=== PATIENT | female | born 1980 | race Caucasian/White ===

== ENCOUNTER 2016-03-14 00:10 | Inpatient (IN) | payer MEDICARE, MEDICAID ==
--- NOTE | 2016-03-14 01:55 | XR ---
EXAMINATION TYPE: XR cervical spine comp DATE OF EXAM: 03/14/2016 1:26 AM COMPARISON: NONE HISTORY: Neck pain TECHNIQUE: 5 views FINDINGS: The cervical vertebra have normal spacing and alignment. Posterior elements are intact. [place] antoaxial facet joint is normal. There are no cervical ribs. IMPRESSION: Normal cervical spine.
--- NOTE | 2016-03-14 01:56 | XR ---
EXAMINATION TYPE: XR ankle complete RT DATE OF EXAM: 03/14/2016 1:26 AM COMPARISON: NONE HISTORY: Ankle pain TECHNIQUE: 3 views FINDINGS: I see no fracture nor dislocation. Ankle mortise is anatomic. Joint spaces are normal. Ther e is an Achilles calcaneal spur. IMPRESSION: No fracture. Mild calcaneal spurring.
--- NOTE | 2016-03-14 01:57 | XR ---
EXAMINATION TYPE: XR wrist complete LT DATE OF EXAM: 03/14/2016 1:26 AM COMPARISON: NONE HISTORY: Pain TECHNIQUE: 4 views FINDINGS: I see no fracture nor dislocation. Carpal bones are intact. Joint spaces are normal. IMPRESSION: Normal left wrist.
--- NOTE | 2016-03-14 01:57 | XR ---
EXAMINATION TYPE: XR elbow complete LT DATE OF EXAM: 03/14/2016 1:26 AM COMPARISON: NONE HISTORY: Pain TECHNIQUE: 3 views FINDINGS: I see no fracture nor dislocation. Joint spaces are normal. There is no sign of elbow joint effusion. IMPRESSION: Negative left elbow exam.
--- NOTE | 2016-03-14 02:09 | ED ---
Lower Extremity Injury HPI - General Chief Complaint: Extremity Injury, Lower Stated Complaint: fall-Ankle/Elbow Injury Time Seen by Provider: 03/14/16 00:50 Source: patient, RN notes reviewed Mode of arrival: wheelchair Limitations: no limitations - History of Present Illness Initial Comments: 35-year-old female presents emergency Department chief complaint fall. Patient states she stepped off a ledge twisting her right ankle, falling forward injuring her left elbow, left wrist and she states she has some neck discomfort. Patient denies any head injury no LOC. Patient denies any back pain. Patient states that there is some swelling noted to the right ankle. And abrasion noted to her left elbow. She states her tetanus is up-to-date. Patient states that she is also feeling depressed, suicidal and occasionally homicidal. - Related Data Home Medications Medication Instructions Recorded Confirmed Baclofen [Baclofen] 10 mg PO Q8H PRN 09/26/15 03/14/16 Diazepam [Diazepam] 5 mg PO TID 09/26/15 03/14/16 Previous Rx's Medication Instructions Recorded Ibuprofen [Motrin] 600 mg PO Q8HR PRN #30 tab 03/14/16 Allergies Allergy/AdvReac Type Severity Reaction Status Date / Time duloxetine HCl Allergy Rash/Hives Verified 09/26/15 13:47 [From Cymbalta] Iodine and Iodide Containing Allergy Rash/Hives Verified 09/26/15 13:47 Produc paroxetine HCl [From Paxil] Allergy Rash/Hives Verified 09/26/15 13:47 Penicillins Allergy Rash/Hives Verified 09/26/15 13:47 Review of Systems ROS Statement: Those systems with pertinent positive or pertinent negative responses have been documented in the HPI. ROS Other: All systems not noted in ROS Statement are negative. Past Medical History Past Medical History: No Reported History Additional Past Medical History / Comment(s): Chronic back pain, insomnia, kidney stones History of Any Multi-Drug Resistant Organisms: None Reported Past Surgical History: Cholecystectomy, Tubal Ligation Past Anesthesia/Blood Transfusion Reactions: No Reported Reaction Past Psychological History: Anxiety, Bipolar, Depression, Panic Disorder, Schizophrenia Smoking Status: Current every day smoker Past Alcohol Use History: None Reported Additional Past Alcohol Use History / Comment(s): Patient is a smoker of one half pack per day since she was 13 years of age. Past Drug Use History: None Reported - Past Family History Father Additional Family Medical History / Comment(s): Patient does not know any history on her father. Mother Family Medical History: Liver Disease Additional Family Medical History / Comment(s): Mother at age 46 from liver cirrhosis due to alcoholism General Exam Limitations: no limitations General appearance: alert, in no apparent distress Neck exam: Present: normal inspection, tenderness (Mild right paraspinal tenderness), full ROM. Absent: meningismus, lymphadenopathy Respiratory exam: Present: normal lung sounds bilaterally. Absent: respiratory distress, wheezes, rales, rhonchi, stridor Cardiovascular Exam: Present: regular rate, normal rhythm, normal heart sounds. Absent: systolic murmur, diastolic murmur, rubs, gallop, clicks Extremities exam: Present: other (Left wrist there is some tenderness palpation , no obvious deformity no swelling or range of motion, left elbow tenderness with palpation, pain with rotation supination full extension noted neurovascular intact right ankle tenderness palpation of the lateral malleolus there is mild swelling no foot tenderness neurovascular intact) Back exam: Present: full ROM. Absent: tenderness Neurological exam: Present: alert, oriented X3, CN II-XII intact, reflexes normal. Absent: motor sensory deficit Psychiatric exam: Present: depressed Course Vital Signs 03/14/16 00:43 Temperature 97.5 F L Pulse Rate 81 Respiratory 18 Rate Blood Pressure 120/72 O2 Sat by Pulse 99 Oximetry Medical Decision Making - Medical Decision Making 35-year-old female presented for fall. There is no acute fractures. Patient did have a psychiatric evaluation in which patient will be discharged per psychiatrist recommendation. Patient states that she does have a safe living environment and she will be discharged. - Lab Data Lab Results 03/14/16 Range/Units 01:43 Urine Opiates Screen Not Detected (NotDetected) Ur Oxycodone Screen Not Detected (NotDetected) Urine Methadone Screen Not Detected (NotDetected) Ur Propoxyphene Screen Not Detected (NotDetected) Ur Barbiturates Screen Detected H (NotDetected) U Tricyclic Antidepress Not Detected (NotDetected) Ur Phencyclidine Scrn Not Detected (NotDetected) Ur Amphetamines Screen Not Detected (NotDetected) U Methamphetamines Scrn Not Detected (NotDetected) U Benzodiazepines Scrn Detected H (NotDetected) Urine Cocaine Screen Not Detected (NotDetected) U Marijuana (THC) Screen Not Detected (NotDetected) Disposition Clinical Impression: Fall, Right ankle sprain, Injury of left lower arm, Depression Disposition: HOME SELF-CARE Condition: Stable Instructions: Ankle Sprain (ED) Additional Instructions: Please return to the Emergency Department if symptoms worsen or any other concerns. Prescriptions: Ibuprofen [Motrin] 600 mg PO Q8HR PRN #30 tab PRN Reason: Pain Time of Disposition: 04:07
[2016-03-14 05:20] VITALS: RESP 16
[2016-03-14] MEDS ORDERED: IBUPROFEN 800 MG TAB PO STA (05:37)
[2016-03-14] MEDS ORDERED: MAGNESIUM HYDROXIDE 2,400 MG/10 ML CUP PO PRN (06:21)
[2016-03-14] MEDS ORDERED: ZIPRASIDONE 20 MG VIAL IM PRN (06:21)
[2016-03-14] MEDS ORDERED: MAG HYDROX/AL HYDROX/SIMETH 30 ML CUP PO PRN (06:21)
[2016-03-14] MEDS: NICOTINE 21MG/24HR PATCH TRANSDERM SCH (09:17)
[2016-03-14 09:53] LABS: Basophils # (A) 0.1 k/uL (0-0.2); Basophils % (A) 0 %; CH 31.8; CHCM 33.9; Eosinophils # (A) 0.1 k/uL (0-0.7); Eosinophils % (A) 1 %; HCT 42.4 % (34.0-46.0); HDW 2.24; HGB 13.9 gm/dL (11.4-16.0); Luc # (Auto) 0.18; Luc % (Auto) 2; Lymphocytes # (A) 2.7 k/uL (1.0-4.8); Lymphocytes % (A) 22 %; MCH 30.9 pg (25.0-35.0); MCHC 32.8 g/dL (31.0-37.0); MCV 94.2 fL (80.0-100.0); Mean Platelet Volume 6.3; Monocytes # (A) 0.7 k/uL (0-1.0); Monocytes % (A) 6 %; Neutrophils # (A) 8.4 k/uL (1.3-7.7); Neutrophils % (A) 69 %; RDW 12.8 % (11.5-15.5); WBC 12.2 k/uL (3.8-10.6); WBC (Perox) 12.99
[2016-03-14 10:13] LABS: ALT 27 U/L (9-52); AST 13 U/L (14-36); Alkaline Phosphatase 73 U/L (38-126); Anion Gap 13 mmol/L; Blood Urea Nitrogen 10 mg/dL (7-17); Calcium 9.3 mg/dL (8.4-10.2); Carbon Dioxide 24 mmol/L (22-30); Chloride 107 mmol/L (98-107); Glucose 91 mg/dL (74-99); Non-African American GFR(MDRD) >60 (>60 ml/min/1.73 sqM); Potassium 4.2 mmol/L (3.5-5.1); Sodium 144 mmol/L (137-145); Total Bilirubin 0.6 mg/dL (0.2-1.3); Total Protein 6.9 g/dL (6.3-8.2)
[2016-03-14] MEDS: ACETAMINOPHEN TAB 325 MG TAB PO PRN ×2 (11:03→18:19)
[2016-03-14] MEDS: BACLOFEN 10 MG TAB PO PRN ×2 (11:34→21:52)
[2016-03-14] MEDS: DOXYCYCLINE 50 MG CAP PO SCH ×2 (15:32→20:35)
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
[2016-03-14 17:23] LABS: Amorphous Sediment,Urine Rare /hpf; Appearance,Urine Clear (Clear); Bilirubin,Urine Negative (Negative); Glucose,Urine (UA) Negative (Negative); Ketones,Urine Negative (Negative); Leukocyte Esterase,Urine Trace (Negative); Mucus,Urine Many /hpf; Nitrite,Urine Negative (Negative); PH, Urine 6.5 (5.0-8.0); Particle Count 1526; Protein,Urine Negative (Negative); RBC,Urine <1 /hpf (0-5); Specific Gravity,Urine 1.001 (1.001-1.035); Squamous Epithelial Cell,Urine 2 /hpf (0-4); UA Billing (MACRO vs. MICRO) MICRO; Urobilinogen,Urine <2.0 mg/dL (<2.0); WBC,Urine 4 /hpf (0-5)
--- NOTE | 2016-03-14 19:39 | P.CONS ---
History of Present Illness - Reason for Consult Consult date: 03/14/16 enrique Requesting physician: Dru Perrin - Chief Complaint Major depression - History of Present Illness This is a 35-year-old pleasant lady with no local PCP. She follows with Dr. Silvina Mcqueen. She has underlying history off chronic back pain and insomnia kidney stones admitted the emergency room secondary to depression and suicidal ideation, patient initially presented emergency room secondary to a sprain on the ankle right side after she rolled her ankle and fell on an even H. This occurred without any loss of consciousness. She developed a right ankle sprain for which she can ambulate, left elbow contusion with some minor abrasions, nothing for sutures, left wrist sprain she was in emergency room with negative x -rays on this areas. The ecchymosis up-to-date. While in emergency room she also mentioned about her increasing depression and suicidal ideation especially during the [place] holidays. Her grandmother had in 2011 and is a grandmother who took care of her primary. The boyfriend has brought the patient emergency room with concerns about her depression. Patient denies any suicidal thoughts or homicidal thoughts. She also is depressed mainly that she found out that her 2 children that she gave up for adoption did not receive any [employer] presents for the past 2 years Review of Systems Constitutional: Reports as per HPI, Reports chronic pain, Denies anorexia, Denies chills, Denies chronic headaches, Denies daytime sleepiness, Denies fatigue, Denies fever, Denies lethargy, Denies malaise, Denies night sweats, Denies poor appetite, Denies sweats, Denies weakness, Denies weight gain, Denies weight loss Ears, nose, mouth and throat: Reports as per HPI, Denies ant. neck pain, Denies bleeding gums, Denies dental pain, Denies dysphagia, Denies epistaxis, Denies headache, Denies hoarseness, Denies mouth pain, Denies nasal congestion, Denies nasal discharge, Denies neck fullness/pressure, Denies neck lump, Denies nose pain, Denies odynophagia, Denies post-nasal drip, Denies sinus pain, Denies sinus pressure, Denies swelling in mouth, Denies swelling in throat, Denies sore throat, Denies vertigo, Denies voice changes Cardiovascular: Reports as per HPI, Denies chest pain, Denies claudication, Denies decreased exercise tolerance, Denies dyspnea on exertion, Denies edema, Denies high blood pressure, Denies irregular heart beat, Denies leg edema, Denies lightheadedness, Denies orthopnea, Denies palpitations, Denies paroxysmal nocturnal dyspnea, Denies phlebitis, Denies rapid heart beat, Denies shortness of breath, Denies syncope Respiratory: Reports as per HPI, Denies congestion, Denies cough, Denies cough with sputum, Denies dyspnea, Denies excessive sputum, Denies hemoptysis, Denies home oxygen, Denies pain, Denies pain on inspiration, Denies pleurisy, Denies respiratory infections, Denies sleep apnea, Denies snoring, Denies wheezing Gastrointestinal: Reports as per HPI, Denies abdominal pain, Denies belching, Denies bloating, Denies BRBPR, Denies change in bowel habits, Denies coffee ground emesis, Denies constipation, Denies diarrhea, Denies dyspepsia, Denies early satiety, Denies excessive gas, Denies heartburn, Denies hematemesis, Denies hematochezia, Denies indigestion, Denies jaundice, Denies lactose intolerance, Denies loss of appetite, Denies melena, Denies nausea, Denies vomiting Genitourinary: Reports as per HPI, Denies abnormal vaginal bleeding, Denies decreased libido, Denies difficulty conceiving, Denies difficulty voiding, Denies dysmenorrhea, Denies dyspareunia, Denies dysuria, Denies flank pain, Denies genital sores, Denies hematuria, Denies hot flashes, Denies incomplete emptying, Denies kidney stones, Denies menorrhagia, Denies mixed incontinence, Denies nocturia, Denies pelvic pain, Denies post void dribbling, Denies , Denies prolapse symptoms, Denies stress incontinence, Denies urge incontinence , Denies urgency, Denies urinary frequency, Denies vaginal discharge, Denies vaginal dryness, Denies vaginal itching, Denies vaginal odor Menstruation: Reports as per HPI, Denies amenorrhea, Denies amenorrhea on BC, Denies currently menstrual, Denies cycle < 21 days, Denies cycle > 35 days, Denies cycle variable, Denies menses 1-7 days, Denies menses 8 or > days, Denies menses variable, Denies period heavy, Denies period light, Denies period normal, Denies period spotting, Denies post hysterectomy, Denies postmenopausal , Denies premenarcheal Musculoskeletal: Reports as per HPI, Denies arm numbness/tingling, Denies atrophy, Denies fractures, Denies frequent falls, Denies gait dysfunction, Denies hot joints, Denies leg numbness/tingling, Denies limitation of motion, Denies loss of height, Denies low back pain, Denies morning stiffness, Denies muscle cramps, Denies muscle weakness, Denies myalgias, Denies neck pain, Denies neck stiffness, Denies prior amputations, Denies redness of joints, Denies shooting arm pain, Denies shooting leg pain Integumentary: Reports as per HPI, Denies acne, Denies boils, Denies brittle nails, Denies change in hair/nails, Denies color changes, Denies darkening of skin, Denies depigmentation, Denies dryness, Denies foot/leg ulcers, Denies growths, Denies hirsutism, Denies lesions, Denies onychomycosis, Denies pruritus , Denies rash, Denies sores, Denies striae, Denies unusual bruising, Denies wounds Neurological: Reports as per HPI, Denies aphasia, Denies ataxia, Denies balance difficulties, Denies burning pain, Denies change in mentation, Denies change in smell/taste, Denies change in speech, Denies confusion, Denies convulsions, Denies double vision, Denies gait dysfunction, Denies head injury, Denies headaches, Denies hearing difficulties, Denies lack of coordination, Denies loss of vision, Denies memory loss, Denies migraines, Denies motor disturbance, Denies numbness, Denies paralysis, Denies paresthesias, Denies seizures, Denies sensory deficit, Denies spasticity, Denies syncope, Denies tic, Denies tingling , Denies transient paralysis, Denies tremors, Denies vertigo, Denies weakness, Denies visual changes Psychiatric: Reports as per HPI, Reports change in sleep habits, Reports depression, Reports insomnia, Reports sadness/tearfulness Endocrine: Reports as per HPI, Denies cold intolerance, Denies deepening of the voice, Denies excessive sweating, Denies excessive thirst, Denies fatigue, Denies flushing, Denies heat intolerance, Denies high blood sugars, Denies increase in ring/shoe/hat size, Denies low blood sugars, Denies nocturia, Denies palpitations, Denies polydipsia, Denies polyphagia, Denies polyuria, Denies proptosis, Denies recent glucocorticoid use, Denies thyroid mass, Denies weight change Hematologic/Lymphatic: Reports as per HPI, Denies easy bleeding, Denies easy bruising, Denies lymphadenopathy, Denies lymphedema, Denies thrombophilia Allergic/Immunologic: Reports as per HPI, Denies allergic rhinitis, Denies anaphylaxis, Denies angioedema, Denies gluten intolerance, Denies persistent infections, Denies seasonal allergies, Denies urticaria, Denies wheezing Past Medical History Past Medical History: No Reported History, Renal Disease (Kidney stones) Additional Past Medical History / Comment(s): Chronic back pain, insomnia, kidney stones History of Any Multi-Drug Resistant Organisms: None Reported Past Surgical History: Cholecystectomy, Tubal Ligation Past Anesthesia/Blood Transfusion Reactions: No Reported Reaction Past Psychological History: Anxiety, Bipolar, Depression, Panic Disorder, Schizophrenia Smoking Status: Current every day smoker Past Alcohol Use History: None Reported Additional Past Alcohol Use History / Comment(s): Patient is a smoker of one half pack per day since she was 13 years of age. Past Drug Use History: None Reported - Past Family History Father Family Medical History: Hyperlipidemia Additional Family Medical History / Comment(s): CAD with triple bypass surgery Mother Family Medical History: Liver Disease Additional Family Medical History / Comment(s): Mother at age 46 from liver cirrhosis due to alcoholism Brother(s) History Unknown: Yes (Half-brother healthy) Medications and Allergies Home Medications Medication Instructions Recorded Confirmed Type Baclofen [Baclofen] 10 mg PO Q8H PRN 09/26/15 03/14/16 History Diazepam [Diazepam] 5 mg PO TID 09/26/15 03/14/16 History HYDROcodone/APAP 10-325MG [[place] 1 tab PO TID PRN 03/14/16 03/14/16 History 10-325] Prochlorperazine [Compazine] 10 mg PO DAILY PRN 03/14/16 03/14/16 History Allergies Allergy/AdvReac Type Severity Reaction Status Date / Time duloxetine HCl Allergy Rash/Hives Verified 09/26/15 13:47 [From Cymbalta] Iodine and Iodide Containing Allergy Rash/Hives Verified 09/26/15 13:47 Produc paroxetine HCl [From Paxil] Allergy Rash/Hives Verified 09/26/15 13:47 Penicillins Allergy Rash/Hives Verified 09/26/15 13:47 Physical Exam Vitals: Vital Signs Temp Pulse Resp BP 03/14/16 07:05 98.2 F 86 16 118/68 Intake and Output 03/14/16 03/14/16 03/14/16 06:59 14:59 22:59 Other: Weight 113.852 kg Patient Weight 03/15/16 06:59 Weight 113.852 kg - Constitutional General appearance: no average body habitus, cooperative, no disheveled, no mild distress, morbidly obese, no acute distress, no obese, no severe distress, no thin - EENT Eyes: no abnormal pupil, anicteric sclerae, no disc margins sharp, no edentulous , EOMI, PERRLA, no fundus normal, no photophobia, dentition normal, no poor dentition, no ptosis, no scleral icterus, normal appearance ENT: no hard of hearing, hearing grossly normal, NA/AT, normal oropharynx, no other, no pharyngeal erythema, no thrush, no tonsillar exudates, no tonsillar swelling - Neck Neck: no lymphadenopathy, normal ROM, no other, no rigidity, no stridor, no thyromegaly - Respiratory Respiratory: bilateral: CTA, negative: diminished, dullness, rales, rhonchi, wheezing, prolonged expiration, prolonged inspiration, other - Cardiovascular Rhythm: regular Heart sounds: normal: S1, S2 Abnormal Heart Sounds: no systolic murmur, no diastolic murmur, no rub, no S3 Gallop, no S4 Gallop, no click, no other - Gastrointestinal General gastrointestinal: normal bowel sounds, soft - Integumentary Integumentary: normal - Neurologic Neurologic: CNII-XII intact - Musculoskeletal Musculoskeletal: gait normal, strength equal bilaterally - Psychiatric Psychiatric: A&O x's 3, appropriate affect, intact judgment & insight Results CBC & Chem 7: 03/14/16 09:13 03/14/16 09:13 Labs: Abnormal Lab Results - Last 24 Hours (Table) 03/14/16 03/14/16 03/14/16 Range/Units 09:13 09:13 16:15 WBC 12.2 H (3.8-10.6) k/uL Neutrophils # 8.4 H (1.3-7.7) k/uL AST 13 L (14-36) U/L Ur Leukocyte Esterase Trace H (Negative) Amorphous Sediment Rare H (None) /hpf Urine Mucus Many H (None) /hpf Laboratory Results WBC 12.2 k/uL (3.8-10.6) H 03/14/16 09:13 RBC 4.50 m/uL (3.80-5.40) 03/14/16 09:13 Hgb 13.9 gm/dL (11.4-16.0) 03/14/16 09:13 Hct 42.4 % (34.0-46.0) 03/14/16 09:13 MCV 94.2 fL (80.0-100.0) 03/14/16 09:13 MCH 30.9 pg (25.0-35.0) 03/14/16 09:13 MCHC 32.8 g/dL (31.0-37.0) 03/14/16 09:13 RDW 12.8 % (11.5-15.5) 03/14/16 09:13 Plt Count 351 k/uL (150-450) 03/14/16 09:13 Neutrophils % 69 % 03/14/16 09:13 Lymphocytes % 22 % 03/14/16 09:13 Monocytes % 6 % 03/14/16 09:13 Eosinophils % 1 % 03/14/16 09:13 Basophils % 0 % 03/14/16 09:13 Neutrophils # 8.4 k/uL (1.3-7.7) H 03/14/16 09:13 Lymphocytes # 2.7 k/uL (1.0-4.8) 03/14/16 09:13 Monocytes # 0.7 k/uL (0-1.0) 03/14/16 09:13 Eosinophils # 0.1 k/uL (0-0.7) 03/14/16 09:13 Basophils # 0.1 k/uL (0-0.2) 03/14/16 09:13 Sodium 144 mmol/L (137-145) 03/14/16 09:13 Potassium 4.2 mmol/L (3.5-5.1) 03/14/16 09:13 Chloride 107 mmol/L (98-107) 03/14/16 09:13 Carbon Dioxide 24 mmol/L (22-30) 03/14/16 09:13 Anion Gap 13 mmol/L 03/14/16 09:13 BUN 10 mg/dL (7-17) 03/14/16 09:13 Creatinine 0.75 mg/dL (0.52-1.04) 03/14/16 09:13 Est GFR (MDRD) Af Amer >60 (>60 ml/min/1.73 sqM) 03/14/16 09:13 Est GFR (MDRD) Non-Af >60 (>60 ml/min/1.73 sqM) 03/14/16 09:13 Glucose 91 mg/dL (74-99) 03/14/16 09:13 Calcium 9.3 mg/dL (8.4-10.2) 03/14/16 09:13 Total Bilirubin 0.6 mg/dL (0.2-1.3) 03/14/16 09:13 AST 13 U/L (14-36) L 03/14/16 09:13 ALT 27 U/L (9-52) 03/14/16 09:13 Alkaline Phosphatase 73 U/L (38-126) 03/14/16 09:13 Total Protein 6.9 g/dL (6.3-8.2) 03/14/16 09:13 Albumin 3.8 g/dL (3.5-5.0) 03/14/16 09:13 TSH 2.130 mIU/L (0.465-4.680) 03/14/16 09:13 Urine Color Colorless 03/14/16 16:15 Urine Appearance Clear (Clear) 03/14/16 16:15 Urine pH 6.5 (5.0-8.0) 03/14/16 16:15 Ur Specific [place] 1.001 (1.001-1.035) 03/14/16 16:15 Urine Protein Negative (Negative) 03/14/16 16:15 Urine Glucose (UA) Negative (Negative) 03/14/16 16:15 Urine Ketones Negative (Negative) 03/14/16 16:15 Urine Blood Negative (Negative) 03/14/16 16:15 Urine Nitrate Negative (Negative) 03/14/16 16:15 Urine Bilirubin Negative (Negative) 03/14/16 16:15 Urine Urobilinogen <2.0 mg/dL (<2.0) 03/14/16 16:15 Ur Leukocyte Esterase Trace (Negative) H 03/14/16 16:15 Urine RBC <1 /hpf (0-5) 03/14/16 16:15 Urine WBC 4 /hpf (0-5) 03/14/16 16:15 Ur Squamous Epith Cells 2 /hpf (0-4) 03/14/16 16:15 Amorphous Sediment Rare /hpf (None) H 03/14/16 16:15 Urine Mucus Many /hpf (None) H 03/14/16 16:15 Urine HCG, Qual Not Detected (Not Detectd) 03/14/16 16:15 Urine Opiates Screen Not Detected (NotDetected) 03/14/16 01:43 Ur Oxycodone Screen Not Detected (NotDetected) 03/14/16 01:43 Urine Methadone Screen Not Detected (NotDetected) 03/14/16 01:43 Ur Propoxyphene Screen Not Detected (NotDetected) 03/14/16 01:43 Ur Barbiturates Screen Detected (NotDetected) H 03/14/16 01:43 U Tricyclic Antidepress Not Detected (NotDetected) 03/14/16 01:43 Ur Phencyclidine Scrn Not Detected (NotDetected) 03/14/16 01:43 Ur Amphetamines Screen Not Detected (NotDetected) 03/14/16 01:43 U Methamphetamines Scrn Not Detected (NotDetected) 03/14/16 01:43 U Benzodiazepines Scrn Detected (NotDetected) H 03/14/16 01:43 Urine Cocaine Screen Not Detected (NotDetected) 03/14/16 01:43 U Marijuana (THC) Screen Not Detected (NotDetected) 03/14/16 01:43 Assessment and Plan Plan: 1. Major depression recurrent, triggered by the holidays and loss of the grandmother 4 years ago. Patient currently is in the mental health unit being followed closely by the mental health team including psychiatry. Medications will be adjusted by the mental health services 2. Right ankle strain grade 1-2, no treatment necessary except for anti- inflammatory and icing. X-ray negative 3. Contusion left elbow also from a recent fall on a ledge at a patio, patient had minor superficial abrasions no swelling of the elbow x-rays negative tetanus vaccine up-to-date 4. Left wrist sprain with no residual pain at this time maintain close monitory 5. Chronic low back pain with recent negative ablation L3-L4 January 2016 follows with [place] [facility] 6. Chronic low back pain urinalysis is requested as she did have a history off kidney stones the past if no hematuria microscopic noted, most likely back pains related to musculoskeletal patient has baclofen, Valium, and [place] 3 times per day from neuro 7. Tobacco dependency for which she smoked half a pack per day since age [address] Perrin in allowing us to participate patent care for patient. Please not hesitate to notify us should there be any medical concerns on this pleasant patient Time with Patient: Greater than 30
[2016-03-14] MEDS: SYMBICORT 160-4.5 MCG INHALER INHALATION SCH (20:32)
[2016-03-15] MEDS: DOXYCYCLINE 50 MG CAP PO SCH ×2 (08:23→20:09)
[2016-03-15] MEDS: ACETAMINOPHEN TAB 325 MG TAB PO PRN ×2 (08:24→16:26)
[2016-03-15] MEDS: NICOTINE 21MG/24HR PATCH TRANSDERM SCH (08:24)
[2016-03-15] MEDS: SYMBICORT 160-4.5 MCG INHALER INHALATION SCH ×2 (08:50→19:59)
[2016-03-15 10:40] VITALS: BMI 41.8
[2016-03-15] MEDS: BACLOFEN 10 MG TAB PO PRN ×2 (10:58→20:51)
[2016-03-15] MEDS: DIAZEPAM 5 MG TAB PO PRN ×2 (12:43→20:10)
[2016-03-15] MEDS: IBUPROFEN 600 MG TAB PO PRN ×2 (12:43→20:10)
--- NOTE | 2016-03-15 13:15 | P.PN ---
Subjective Psychiatric progress notes. Patient reports that she had been doing quite well on the unit, attending all the milieu based treatment programs and compliant with her medications. Since patient did not appear to be depressed no antidepressant was started as she had not been on any medication on the outside. In addition she has not been compliant with any treatment follow-up. Patient states that she learned that her boyfriend has gone back to his and hence she can go back to the apartment for the time being. All the same she states she is in love with him. Mental status. Somewhat heavy built female who is dressed in her own clothes with moderate degree of grooming and without any psychomotor disturbance. Patient comes readily for the evaluation and maintains good eye contact and communicates relevantly and coherently. Her speech was productive and speech and thought process did not show any abnormal traits. Patient denied feeling depressed or anxious and has been regular with her habits in sleeping and eating as well as self-care. Seems to have fair degree of insight and judgment. Continue current treatment plans. Objective - Vital Signs Vital signs: Vital Signs Temp 98.1 F 03/15/16 06:48 Pulse 100 03/15/16 06:48 Resp 16 03/15/16 06:48 BP 122/58 03/15/16 06:48 Pulse Ox 97 03/14/16 05:18 Intake & Output 03/14/16 03/15/16 03/15/16 18:59 06:59 18:59 Weight 113.852 kg 113.852 kg - Labs CBC & Chem 7: 03/14/16 09:13 03/14/16 09:13 Labs: Abnormal Lab Results - Last 24 Hours (Table) 03/14/16 Range/Units 16:15 Ur Leukocyte Esterase Trace H (Negative) Amorphous Sediment Rare H (None) /hpf Urine Mucus Many H (None) /hpf
[2016-03-16] MEDS: IBUPROFEN 600 MG TAB PO PRN ×2 (06:26→21:02)
[2016-03-16] MEDS: DIAZEPAM 5 MG TAB PO PRN ×3 (06:26→20:30)
[2016-03-16] MEDS: DOXYCYCLINE 50 MG CAP PO SCH ×2 (08:43→20:30)
[2016-03-16] MEDS: NICOTINE 21MG/24HR PATCH TRANSDERM SCH (08:44)
[2016-03-16] MEDS: ACETAMINOPHEN TAB 325 MG TAB PO PRN (12:09)
[2016-03-16] MEDS: SYMBICORT 160-4.5 MCG INHALER INHALATION SCH ×2 (12:38→18:58)
--- NOTE | 2016-03-16 14:48 | P.PN ---
Subjective Psychiatric progress notes. Patient indicated that she has been doing quite well though she is not on any antidepressant medication at present. According to her she had slept well and has been participating in all treatment activities. She indicates that she learned that her boyfriend is living with his mother now. Appears to be ambivalent about her relationship with him. Otherwise no significant problem brought. Mental status. Heavy built female in her own clothes, quite pleasant and appropriate readily coming for the evaluation and maintaining good eye contact and appropriately responding to questions. No psychomotor disturbance noticeable. Speech and thought process normal. Denied feeling any depression or thoughts of harm to self or others. No evidence of any psychotic symptoms. May have some improved insight and judgment. Continue current treatment plans. Objective - Vital Signs Vital signs: Vital Signs Temp 97.6 F 03/16/16 06:49 Pulse 104 H 03/16/16 06:49 Resp 16 03/16/16 06:49 BP 144/82 03/16/16 06:49 Pulse Ox 97 03/14/16 05:18 Intake & Output 03/15/16 03/16/16 03/16/16 18:59 06:59 18:59 Weight 113.852 kg - Labs CBC & Chem 7: 03/14/16 09:13 03/14/16 09:13
[2016-03-16] MEDS: BACLOFEN 10 MG TAB PO PRN (15:54)
[2016-03-17] MEDS: DOXYCYCLINE 50 MG CAP PO SCH ×2 (08:38→21:06)
[2016-03-17] MEDS: NICOTINE 21MG/24HR PATCH TRANSDERM SCH (08:40)
[2016-03-17] MEDS: DIAZEPAM 5 MG TAB PO PRN ×2 (08:41→15:57)
[2016-03-17] MEDS: IBUPROFEN 600 MG TAB PO PRN ×2 (08:41→15:57)
[2016-03-17] MEDS: BACLOFEN 10 MG TAB PO PRN ×2 (09:34→17:33)
[2016-03-17] MEDS: SYMBICORT 160-4.5 MCG INHALER INHALATION SCH ×2 (12:34→19:11)
--- NOTE | 2016-03-17 15:02 | P.PN ---
Subjective Psychiatric progress notes. Patient has been doing quite well on the unit without any evidence of her being depressed or having any psychotic symptoms. Has been participating in treatment activities and did not require any antidepressant medication or any sleep aid. Patient states that she had a family session yesterday and her boyfriend came, apparently she had called him. It's very difficult to evaluate her relationship with this gentleman as she is quite evasive and not telling the truth nature of their relationship. Though she states that she does not want have anything to do with him she enumerates numerous details about what he has been doing since she was hospitalized. Mental status. Patient is an obese built female dressed in her own clothes and without any psychomotor disturbance. Comes readily for the evaluation and speak spontaneously maintaining good eye contact. Speech and thought process without any abnormal traits. Patient denies feeling depressed or anxious. Eating and sleeping habits good. No psychotic features. Possibly limited in insight and judgment. Continue current treatment plans and possible discharge tomorrow. Objective - Vital Signs Vital signs: Vital Signs Temp 98.4 F 03/17/16 06:43 Pulse 99 03/17/16 06:43 Resp 16 03/17/16 06:43 BP 109/53 03/17/16 06:43 Pulse Ox 97 03/14/16 05:18 Intake & Output 03/16/16 03/17/16 03/17/16 18:59 06:59 18:59 Weight 114.7 kg - Labs CBC & Chem 7: 03/14/16 09:13 03/14/16 09:13
[2016-03-17] MEDS: ACETAMINOPHEN TAB 325 MG TAB PO PRN (21:07)
[2016-03-18] MEDS: NICOTINE 21MG/24HR PATCH TRANSDERM SCH (08:20)
[2016-03-18] MEDS: DOXYCYCLINE 50 MG CAP PO SCH ×2 (08:20→20:54)
[2016-03-18] MEDS: ACETAMINOPHEN TAB 325 MG TAB PO PRN ×3 (08:22→20:55)
[2016-03-18] MEDS: DIAZEPAM 5 MG TAB PO PRN ×3 (08:22→20:55)
[2016-03-18] MEDS: BACLOFEN 10 MG TAB PO PRN ×3 (08:48→20:55)
[2016-03-18] MEDS: SYMBICORT 160-4.5 MCG INHALER INHALATION SCH ×2 (09:00→21:58)
[2016-03-18] MEDS: IBUPROFEN 600 MG TAB PO PRN (11:23)
--- NOTE | 2016-03-18 14:09 | P.PN ---
Subjective Psychiatric progress notes. Patient has been doing quite well for the past couple of days without the necessity of need for antidepressant medication. Patient is waiting be discharged tomorrow after contacting [facility] for appointment. She indicates that she would be going back to her own presidents and does not anticipate her boyfriend is likely to come there as he had told her that he needs to have some time off from every involvement with others. Mental status. He'll be billed to female dressed in her own clothes comes readily for the evaluation without any psychomotor disturbance. Maintains good eye contact and response to questions relevantly and coherently. No evidence of any depressive trends. No delusions or hallucinations. Affect appropriate. Seems to have fair degree of insight and judgment. Continue current treatment plans. Objective - Vital Signs Vital signs: Vital Signs Temp 98.2 F 03/18/16 07:08 Pulse 96 03/18/16 07:08 Resp 16 03/18/16 07:08 BP 101/51 03/18/16 07:08 Pulse Ox 97 03/14/16 05:18 Intake & Output 03/17/16 03/18/16 03/18/16 18:59 06:59 18:59 Weight 114.7 kg - Labs CBC & Chem 7: 03/14/16 09:13 03/14/16 09:13
[2016-03-19 06:45] VITALS: BP 101/54; PULSE 90; TEMP 98.1
[2016-03-19] MEDS: SYMBICORT 160-4.5 MCG INHALER INHALATION SCH (08:32)
[2016-03-19] MEDS: ACETAMINOPHEN TAB 325 MG TAB PO PRN ×2 (08:43→12:20)
[2016-03-19] MEDS: NICOTINE 21MG/24HR PATCH TRANSDERM SCH (08:44)
[2016-03-19] MEDS: DOXYCYCLINE 50 MG CAP PO SCH (08:44)
[2016-03-19] MEDS: DIAZEPAM 5 MG TAB PO PRN (08:44)
[2016-03-19] MEDS: BACLOFEN 10 MG TAB PO PRN (08:44)
--- NOTE | 2016-03-19 15:13 | P.DS ---
Providers Date of admission: 03/14/16 06:19 Attending physician: Dru Perrin MD Psychiatric discharge summary. Identification data and reason for hospitalization. Patient is a 35-year-old white single female was admitted to mental health unit following her evaluation in the emergency room, where she actually came for evaluation of her twisted ankle which according to her happened when she slipped and fell on the porch. After x-rays and other evaluations done and patient was to be discharged she made a statement of "feeling depressed and having occasional suicidal/homicidal thoughts ". Her boyfriend made a petition alleging that she had threatened to harm herself and others. Patient was admitted on a petition and clinical certificate, subsequently signed voluntary. History of present illness and mental status at the time of admission please refer to the dictated admission notes. Admitting diagnoses. [place] I. Depressive disorder. [place] II. Dependent personality. [place] III. Chronic pain. Nicotine dependency. History of hydrocephalus. [place] IV. Moderate [place] V. 35. Course during hospitalization. Patient was on a regular diet and was on close observation for any unpredictable behavior or suicidal ideation, but none was observed during her and there stay on the unit. She was on Tylenol, Maalox, and milk of magnesia on a when necessary basis. In the ER x-rays of the wrist and elbow cervical spine and ankle were taken none of which showed any abnormality. On the other hand EKG showed normal sinus rhythm. Possible lateral infarct age undetermined. Possible inferior infarct age undetermined. Medical consultation provided by Dr. Coats which indicated continuation left elbow right ankle sprain, left wrist sprain chronic low back pain. And tobacco dependency. In the emergency department she was started on Vibramycin 100 mg twice daily. Her regular medications were baclofen 10 mg 3 times a day when necessary Symbicort inhaler twice a day, and Valium 5 mg 3 times a day when necessary. She was on Habitrol 21 mg transdermal every 24 hours. On a when necessary basis for agitation and any psychotic behavior there was an order for Geodon IM 20 mg twice a day when necessary. Since patient has not shown any evidence of being depressed no antidepressants were initiated. Patient was seen on a daily basis in supportive and reality oriented discussions and patient acknowledged that the stressors at home particularly with her daughter made her think about grandmother who had and she wished she was with her. However denied having any suicidal thoughts at the time of admission or subsequently. All the same patient indicated that she could benefit from some counseling sessions. bridge gang worker tried to get an appointment with [facility], where she did not meet criteria and hence alternate follow-up plans were arranged and patient was scheduled for discharge. X Mental status at the time of discharge. Patient is an obese built white female was dressed in her own clothes and quite pleasant and appropriate without any evidence of psychomotor disturbance or any depressive demeanor. She readily comes for evaluation and appropriately response to inquiries though on many occasions I felt that she was being evasive and not truthfully reporting particularly with a reference to her relationship with her boyfriend, and the problems she has with her daughter. On the other hand her speech and thought process was normal and did not reveal having any depressive trends or suicidality. Affect was appropriate patient was euthymic and pleasant. Adequate self-care and possibly improved insight and judgment. Discharge diagnoses. [place] I depressive disorder. Adjustment disorder with depression. Tobacco use disorder. [place] II. Dependent personality [place] III. Chronic pain. Nicotine dependency. History of hydrocephalus. Her EKG history of coronary artery disease [place] IV. Moderate [place] V. 50. Post hospital plan. Patient will be on regular diet. [facility]. And advised follow-up with her family physician within couple of days. Her discharge medications are. Baclofen 10 mg 3 times a day when necessary Symbicort inhaler twice daily when necessary Valium 5 mg 3 times a day when necessary Motrin 600 mg 3 times a day when necessary Habitrol 21 mg transdermal every 24 hours. Prognosis. Appears to be here for psychiatric condition with continued counseling. Risk assessment. Patient did not show any depressive trends and was euthymic at the time of discharge. Did not indicate having any thoughts of harm to self or others. Consults: 03/14/16 06:21 Consult Physician Routine Consulting Provider: Jess Coats Consult Reason/Comments: Medical Management Do you want consulting provider notified?: Yes Primary care physician: Silvina Mcqueen Patient Condition at Discharge: Stable Plan - Discharge Summary New Discharge Prescriptions: Diazepam [Valium] 5 mg PO TID PRN #30 tab PRN Reason: Agitation Or Acute Anxiety Ibuprofen [Motrin] 600 mg PO TID PRN #60 tab PRN Reason: Pain Nicotine 21Mg/24Hr Patch [Habitrol] 1 patch TRANSDERM DAILY #30 patch Discharge Medication List HYDROcodone/APAP 10-325MG [[place] 10-325] 1 tab PO TID PRN 03/14/16 [History] Baclofen [Lioresal] 10 mg PO TID PRN #0 tab 03/19/16 [Rx] Budesonide-Formot 160-4.5 Mcg [Symbicort 160-4.5 Mcg Inhaler] 2 puff INHALATION RT-BID puff 03/19/16 [Rx] Diazepam [Valium] 5 mg PO TID PRN #30 tab 03/19/16 [Rx] Ibuprofen [Motrin] 600 mg PO TID PRN #60 tab 03/19/16 [Rx] Nicotine 21Mg/24Hr Patch [Habitrol] 1 patch TRANSDERM DAILY #30 patch 03/19/16 [ Rx] Follow up Appointment(s)/Referral(s): [facility] [Outside] - 03/21/16 1:00 pm (w/ Jennifer Mckeon. Patient to arrive @ 12:30pm for paperwork. ) Silvina Mcqueen DO [Primary Care Provider] - 1-2 days Patient Instructions/Handouts: How to Stop Smoking (DC), Ankle Sprain (ED), Depression (DC), Suicide Prevention for Adults (DC) Activity/Diet/Wound Care/Special Instructions: No alcohol or street drugs. Notify the crisis line or your care provider if symptoms worsen. Crisis line . Regular diet. Activity as tolerated. Discharge Disposition: HOME SELF-CARE
--- NOTE | 2016-03-19 15:25 | P.DS ---
Providers Date of admission: 03/14/16 06:19 Attending physician: Dru Perrin MD An addendum to the discharge summary. In the summary I indicated that she has problem with her daughter, however I was referring to her having no contact with her daughter or son who were taken away from her and this was making her feel depressed, not that she was having ongoing problems with her. Consults: 03/14/16 06:21 Consult Physician Routine Consulting Provider: Jess Coats Consult Reason/Comments: Medical Management Do you want consulting provider notified?: Yes Primary care physician: Silvina Mcqueen Patient Condition at Discharge: Stable Plan - Discharge Summary New Discharge Prescriptions: Diazepam [Valium] 5 mg PO TID PRN #30 tab PRN Reason: Agitation Or Acute Anxiety Ibuprofen [Motrin] 600 mg PO TID PRN #60 tab PRN Reason: Pain Nicotine 21Mg/24Hr Patch [Habitrol] 1 patch TRANSDERM DAILY #30 patch Discharge Medication List HYDROcodone/APAP 10-325MG [[place] 10-325] 1 tab PO TID PRN 03/14/16 [History] Baclofen [Lioresal] 10 mg PO TID PRN #0 tab 03/19/16 [Rx] Budesonide-Formot 160-4.5 Mcg [Symbicort 160-4.5 Mcg Inhaler] 2 puff INHALATION RT-BID puff 03/19/16 [Rx] Diazepam [Valium] 5 mg PO TID PRN #30 tab 03/19/16 [Rx] Ibuprofen [Motrin] 600 mg PO TID PRN #60 tab 03/19/16 [Rx] Nicotine 21Mg/24Hr Patch [Habitrol] 1 patch TRANSDERM DAILY #30 patch 03/19/16 [ Rx] Follow up Appointment(s)/Referral(s): [facility] [Outside] - 03/21/16 1:00 pm (w/ Jennifer Mckeon. Patient to arrive @ 12:30pm for paperwork. ) Silvina Mcqueen DO [Primary Care Provider] - 1-2 days Patient Instructions/Handouts: How to Stop Smoking (DC), Ankle Sprain (ED), Depression (DC), Suicide Prevention for Adults (DC) Activity/Diet/Wound Care/Special Instructions: No alcohol or street drugs. Notify the crisis line or your care provider if symptoms worsen. Crisis line . Regular diet. Activity as tolerated. Discharge Disposition: HOME SELF-CARE
== END 2016-03-19 13:15 | disposition home or self-care (01) | DRG 881 ==
LOC: EC 00:10 → 3MHU 06:19
PROVIDERS: ADMIT Psychiatry & Neurology Psychiatry; ATTEND Psychiatry & Neurology Psychiatry
DX: F43.21 Adjustment disorder with depressed mood (principal); R45.851 Suicidal ideations; F32.9 Major depressive disorder, single episode, unspecified; F20.9 Schizophrenia, unspecified; F17.200 Nicotine dependence, unspecified, uncomplicated; F41.0 Panic disorder [episodic paroxysmal anxiety]; S50.02XA Contusion of left elbow, initial encounter; S93.401A Sprain of unspecified ligament of right ankle, initial encounter; F41.9 Anxiety disorder, unspecified; G47.00 Insomnia, unspecified; G89.29 Other chronic pain; M54.9 Dorsalgia, unspecified; S63.502A Unspecified sprain of left wrist, initial encounter; E66.01 Morbid (severe) obesity due to excess calories; F60.7 Dependent personality disorder; Z91.19 Patient's noncompliance with other medical treatment and regimen; Z68.41 Body mass index [BMI] 40.0-44.9, adult; Z79.899 Other long term (current) drug therapy; Z88.0 Allergy status to penicillin; Z88.8 Allergy status to other drugs, medicaments and biological substances; Z82.49 Family history of ischemic heart disease and other diseases of the circulatory system; W19.XXXA Unspecified fall, initial encounter; Y92.9 Unspecified place or not applicable
CPT/HCPCS: 72050; 80053; 80300; 81001; 81025; 82075; 84443; 85025; 94640; 99285

== ENCOUNTER 2016-12-23 16:10 | Emergency (ER) | payer MEDICARE, OTHER ==
[2016-12-23 16:23] VITALS: RESP 18
--- NOTE | 2016-12-23 17:17 | ED ---
Lower Extremity Injury HPI - General Chief Complaint: Extremity Injury, Lower Stated Complaint: left knee pain Time Seen by Provider: 12/23/16 16:26 Source: patient Mode of arrival: ambulatory Limitations: no limitations - History of Present Illness Initial Comments: 36-year-old female patient presents to emergency department for evaluation of left knee pain and swelling. Patient states that she believes she twisted it about a week and a half ago. She states that she has pain with ambulation, flexion, and weightbearing. She states it is more swollen than the other knee. She denies any previous injury. She states that the pain wakes her up at night, it is difficult for her to get out of bed in the morning. She denies any numbness or tingling to the leg. Denies any leg discoloration or calf pain. She denies any redness, fever, chills, dizziness, weakness, nausea, or vomiting. Patient denies any headache, neck pain, back pain, chest pain, shortness of breath, abdominal pain, or difficulties with bowel movements or urination. - Related Data Home Medications Medication Instructions Recorded Confirmed HYDROcodone/APAP 10-325MG [[place] 1 tab PO TID PRN 03/14/16 03/14/16 10-325] Previous Rx's Medication Instructions Recorded Baclofen [Lioresal] 10 mg PO TID PRN #0 tab 03/19/16 Budesonide-Formot 160-4.5 Mcg 2 puff INHALATION RT-BID puff 03/19/16 [Symbicort 160-4.5 Mcg Inhaler] Diazepam [Valium] 5 mg PO TID PRN #30 tab 03/19/16 Ibuprofen [Motrin] 600 mg PO TID PRN #60 tab 03/19/16 Nicotine 21Mg/24Hr Patch [Habitrol] 1 patch TRANSDERM DAILY #30 patch 03/19/16 traMADol HCl [Ultram] 50 mg PO Q6H PRN #20 tab 12/23/16 Allergies Allergy/AdvReac Type Severity Reaction Status Date / Time duloxetine HCl Allergy Rash/Hives Verified 12/23/16 16:22 [From Cymbalta] Iodine and Iodide Containing Allergy Rash/Hives Verified 12/23/16 16:22 Produc ketorolac [From Toradol] Allergy Unknown Verified 12/23/16 16:22 meperidine [From Demerol] Allergy Unknown Verified 12/23/16 16:22 paroxetine HCl [From Paxil] Allergy Rash/Hives Verified 12/23/16 16:22 Penicillins Allergy Rash/Hives Verified 12/23/16 16:22 steroids Allergy Unknown Uncoded 12/23/16 16:22 Review of Systems ROS Statement: Those systems with pertinent positive or pertinent negative responses have been documented in the HPI. ROS Other: All systems not noted in ROS Statement are negative. Past Medical History Past Medical History: No Reported History, Renal Disease Additional Past Medical History / Comment(s): Chronic back pain, insomnia, kidney stones History of Any Multi-Drug Resistant Organisms: None Reported Past Surgical History: Cholecystectomy, Tubal Ligation Past Anesthesia/Blood Transfusion Reactions: No Reported Reaction Past Psychological History: Anxiety, Bipolar, Depression, Panic Disorder, Schizophrenia Smoking Status: Current every day smoker Past Alcohol Use History: None Reported Past Drug Use History: None Reported - Past Family History Brother(s) History Unknown: Yes Father Family Medical History: Hyperlipidemia Additional Family Medical History / Comment(s): CAD with triple bypass surgery Mother Family Medical History: Liver Disease Additional Family Medical History / Comment(s): Mother at age 46 from liver cirrhosis due to alcoholism General Exam Limitations: no limitations General appearance: alert, in no apparent distress, other (This is a well- developed, well-nourished adult female patient in no acute distress. Vital signs upon presentation her temperature 98.3F, pulse 107, respirations 18, blood pressure 171/92, pulse ox 98% on room air.) Head exam: Present: atraumatic, normocephalic, normal inspection Eye exam: Present: normal appearance, PERRL, EOMI. Absent: scleral icterus, conjunctival injection, periorbital swelling ENT exam: Present: normal exam, normal oropharynx, mucous membranes moist Respiratory exam: Present: normal lung sounds bilaterally. Absent: respiratory distress, wheezes, rales, rhonchi, stridor Cardiovascular Exam: Present: regular rate, normal rhythm, normal heart sounds. Absent: systolic murmur, diastolic murmur, rubs, gallop, clicks Extremities exam: Present: full ROM, tenderness (Tenderness over the medial aspect of the left knee, tenderness over the posterior aspect of the left knee. ), normal capillary refill, other (Mild left knee swelling. Pain with valgus and varus maneuvers. No evidence of erythema, warmth, or signs of infection. Skin is pink, warm, and dry. Cap refill less than 3 seconds. Post tibial and pedal pulses are 2+ and intact.). Absent: pedal edema, joint swelling, calf tenderness Neurological exam: Present: alert, oriented X3, CN II-XII intact Psychiatric exam: Present: normal affect, normal mood Skin exam: Present: warm, dry, intact, normal color. Absent: rash Course Vital Signs 12/23/16 16:22 Temperature 98.3 F Pulse Rate 107 H Respiratory 18 Rate Blood Pressure 171/92 O2 Sat by Pulse 98 Oximetry Medical Decision Making - Medical Decision Making 36-year-old female patient presented for evaluation of left knee pain. Physical examination did reveal pain with valgus and varus maneuvers. No laxity noted. No evidence of infection. The patient will be placed in a knee immobilizer and instructed to follow up with orthopedics for recheck. She is instructed to follow up with her primary care physician for recheck in 1-2 days. She is instructed to return here immediately for any new, worsening, or concerning symptoms. She verbalizes understanding and agrees with this plan. - Radiology Data Radiology results: report reviewed, image reviewed 3 views of the left knee are obtained, and no fracture nor dislocation noted. Joint spaces are fairly normal. There is no sign of joint effusion. Impression by Dr. Shah shows negative left knee exam. Disposition Clinical Impression: Knee pain, left Disposition: HOME SELF-CARE Condition: Good Instructions: Knee Pain (ED) Additional Instructions: Use knee immobilizer until follow-up with orthopedics. Take pain medication as directed. Follow-up with her primary care physician for recheck in 1-2 days. Return here immediately for any new, worsening, or concerning symptoms. Prescriptions: traMADol HCl [Ultram] 50 mg PO Q6H PRN #20 tab PRN Reason: Pain Referrals: Joseph Puentes MD [Primary Care Provider] - 1-2 days Bradley Clements MD [STAFF PHYSICIAN] - 1-2 days Time of Disposition: 17:
--- NOTE | 2016-12-23 17:18 | XR ---
EXAMINATION TYPE: XR knee complete LT DATE OF EXAM: 12/23/2016 COMPARISON: NONE HISTORY: Knee pain TECHNIQUE: 3 views FINDINGS: I see no fracture nor dislocation. Joint spaces are fairly normal. There is no sign of join t effusion. IMPRESSION: Negative left knee exam
[2016-12-23 17:31] VITALS: BP 157/92; PULSE 87; TEMP 98
== END 2016-12-23 17:30 | disposition home or self-care (01) ==
LOC: EC 16:10
DX: M25.562 Pain in left knee (principal); F17.200 Nicotine dependence, unspecified, uncomplicated; Z88.6 Allergy status to analgesic agent; Z88.0 Allergy status to penicillin; Z88.5 Allergy status to narcotic agent; Z88.8 Allergy status to other drugs, medicaments and biological substances; Z91.048 Other nonmedicinal substance allergy status
CPT/HCPCS: 99283 ×2; 73562; L1830

== ENCOUNTER → 2017-01-10 | Outpatient (CLI) | payer MEDICARE, OTHER ==
[2017-01-10 15:18] LABS: ALT 25 U/L (9-52); AST 12 U/L (14-36); Alkaline Phosphatase 76 U/L (38-126); Anion Gap 9 mmol/L; Blood Urea Nitrogen 6 mg/dL (7-17); Calcium 9.3 mg/dL (8.4-10.2); Carbon Dioxide 24 mmol/L (22-30); Chloride 107 mmol/L (98-107); Glucose 111 mg/dL (74-99); Non-African American GFR(MDRD) >60 (>60 ml/min/1.73 sqM); Potassium 3.6 mmol/L (3.5-5.1); Sodium 140 mmol/L (137-145); Total Bilirubin 0.2 mg/dL (0.2-1.3); Total Protein 6.7 g/dL (6.3-8.2)
== END | disposition home or self-care (01) ==
LOC: LABWHC1 14:30
PROVIDERS: ATTEND Physician Assistant
DX: M47.816 Spondylosis without myelopathy or radiculopathy, lumbar region (principal); M54.2 Cervicalgia; Z13.1 Encounter for screening for diabetes mellitus
CPT/HCPCS: 36415; 80053; 83036

== ENCOUNTER → 2017-10-14 | Outpatient (CLI) | payer MEDICARE, OTHER ==
--- NOTE | 2017-10-14 14:43 | XR ---
EXAMINATION TYPE: XR knee complete LT DATE OF EXAM: 10/14/2017 COMPARISON: NONE HISTORY: Pain and swelling TECHNIQUE: Four views are submitted. FINDINGS: Hypertrophic change and narrowing of the joint space is noted. No erosive changes. Small suprapatella r bursal fluid collection. Osseous structures are intact. No acute fracture seen. IMPRESSION: 1. No acute fracture or dislocation.
== END | disposition home or self-care (01) ==
LOC: RADXRMAIN 14:18
PROVIDERS: ATTEND Family Medicine
DX: M17.12 Unilateral primary osteoarthritis, left knee (principal); M86.9 Osteomyelitis, unspecified

== ENCOUNTER 2018-01-12 10:00 | Emergency (ER) | payer MEDICARE, OTHER ==
[2018-01-12 10:04] VITALS: TEMP 98.1
[2018-01-12] MEDS ORDERED: HYDROcodone/APAP 5-325MG 1 EACH TAB PO STA (10:34)
--- NOTE | 2018-01-12 10:39 | ED ---
General Adult HPI - General Chief complaint: Extremity Problem,Nontraumatic Stated complaint: Swollen ankle Time Seen by Provider: 01/12/18 10:06 Source: patient, RN notes reviewed Mode of arrival: ambulatory Limitations: no limitations - History of Present Illness Initial comments: 37-year-old female with a past medical history of nephrolithiasis, arthritis, and chronic back pain presents to the emergency department for a chief complaint of left ankle and calf pain 4 days. Patient denies any injuries. She states she noticed her foot started to hurt 4 days ago and is progressively worsened. She states she noticed swelling in her foot and ankle at this time. She states there is swelling in the calf as well. She denies a history of blood clots. She denies oral contraceptives, recent surgery, recent travel. Patient states the left lower extremity is now painful to ambulate on. She denies fevers or chills. She denies noticing any increased warmth or redness. Patient states she has had arthritis in her left knee and has had to have her knee drained previously. Patient has no other complaints at this time including shortness of breath, chest pain, abdominal pain, nausea or vomiting, headache, or visual changes. - Related Data Home Medications Medication Instructions Recorded Confirmed HYDROcodone/APAP 10-325MG [[place] 1 tab PO TID PRN 03/14/16 01/12/18 10-325] Acetaminophen [Tylenol Arthritis] 650 mg PO Q8H PRN 01/12/18 01/12/18 Albuterol Inhaler [Ventolin Hfa 1 - 2 puff INHALATION RT-Q6H PRN 01/12/18 Inhaler] Atenolol 25 mg PO DAILY 01/12/18 01/12/18 Cetirizine HCl [Zyrtec] 10 mg PO DAILY 01/12/18 01/12/18 Diazepam [Valium] 10 mg PO TID 01/12/18 01/12/18 Fluticasone/Vilanterol [[place]o 1 puff INHALATION RT-DAILY 01/12/18 01/12/18 Ellipta 200-25 Mcg INH] Meloxicam [Mobic] 7.5 mg PO DAILY 01/12/18 01/12/18 Omeprazole 20 mg PO HS 01/12/18 01/12/18 Prochlorperazine [Compazine] 10 mg PO Q6H PRN 01/12/18 01/12/18 Allergies Allergy/AdvReac Type Severity Reaction Status Date / Time aripiprazole [From Abilify] Allergy Unknown Verified 01/12/18 10:16 asenapine [From Saphris] Allergy Unknown Verified 01/12/18 10:16 carbamazepine [From Tegretol] Allergy Unknown Verified 01/12/18 10:16 citalopram [From Celexa] Allergy Unknown Verified 01/12/18 10:16 clonazepam [From Klonopin] Allergy Unknown Verified 01/12/18 10:16 divalproex sodium Allergy Unknown Verified 01/12/18 10:16 [From Depakote] duloxetine HCl Allergy Rash/Hives Verified 01/12/18 10:05 [From Cymbalta] escitalopram [From Lexapro] Allergy Unknown Verified 01/12/18 10:16 fluoxetine [From Prozac] Allergy Unknown Verified 01/12/18 10:16 fluvoxamine [From Luvox] Allergy Unknown Verified 01/12/18 10:16 haloperidol [From Haldol] Allergy Unknown Verified 01/12/18 10:16 Iodine and Iodide Containing Allergy Rash/Hives Verified 01/12/18 10:05 Produc ketorolac [From Toradol] Allergy Unknown Verified 01/12/18 10:05 lamotrigine [From Lamictal] Allergy Unknown Verified 01/12/18 10:16 lithium Allergy Unknown Verified 01/12/18 10:16 loxapine [From Loxitane] Allergy Unknown Verified 01/12/18 10:16 lurasidone [From Latuda] Allergy Unknown Verified 01/12/18 10:16 meperidine [From Demerol] Allergy Unknown Verified 01/12/18 10:05 morphine Allergy Unknown Verified 01/12/18 10:16 olanzapine [From Zyprexa] Allergy Unknown Verified 01/12/18 10:16 paroxetine [From Paxil] Allergy Unknown Verified 01/12/18 10:16 paroxetine HCl [From Paxil] Allergy Rash/Hives Verified 01/12/18 10:05 Penicillins Allergy Rash/Hives Verified 01/12/18 10:05 potassium Allergy Unknown Verified 01/12/18 10:16 quetiapine [From Seroquel] Allergy Unknown Verified 01/12/18 10:16 risperidone [From Risperdal] Allergy Unknown Verified 01/12/18 10:16 sertraline [From Zoloft] Allergy Unknown Verified 01/12/18 10:16 ziprasidone [From Geodon] Allergy Unknown Verified 01/12/18 10:16 CONTROL PILLS Allergy Unknown Uncoded 01/12/18 10:16 steroids Allergy Unknown Uncoded 01/12/18 10:05 Review of Systems ROS Statement: Those systems with pertinent positive or pertinent negative responses have been documented in the HPI. ROS Other: All systems not noted in ROS Statement are negative. Past Medical History Past Medical History: No Reported History, Renal Disease Additional Past Medical History / Comment(s): Chronic back pain, insomnia, kidney stones History of Any Multi-Drug Resistant Organisms: None Reported Past Surgical History: Cholecystectomy, Tubal Ligation Past Anesthesia/Blood Transfusion Reactions: No Reported Reaction Past Psychological History: Anxiety, Bipolar, Depression, Panic Disorder, Schizophrenia Smoking Status: Current every day smoker Past Alcohol Use History: None Reported Past Drug Use History: None Reported - Past Family History Brother(s) History Unknown: Yes Father Family Medical History: Hyperlipidemia Additional Family Medical History / Comment(s): CAD with triple bypass surgery Mother Family Medical History: Liver Disease Additional Family Medical History / Comment(s): Mother at age 46 from liver cirrhosis due to alcoholism General Exam Limitations: no limitations General appearance: alert, in no apparent distress Head exam: Present: atraumatic, normocephalic, normal inspection ENT exam: Present: normal exam, mucous membranes moist Neck exam: Present: normal inspection, full ROM. Absent: tenderness, meningismus, lymphadenopathy Respiratory exam: Present: normal lung sounds bilaterally. Absent: respiratory distress, wheezes, rales, rhonchi, stridor Cardiovascular Exam: Present: regular rate, normal rhythm, normal heart sounds. Absent: systolic murmur, diastolic murmur, rubs, gallop, clicks Neurological exam: Present: alert, oriented X3, CN II-XII intact Psychiatric exam: Present: normal affect, normal mood Course Vital Signs 01/12/18 01/12/18 10:01 13:42 Temperature 98.1 F Pulse Rate 95 78 Respiratory 18 16 Rate Blood Pressure 134/76 130/79 O2 Sat by Pulse 95 98 Oximetry Medical Decision Making - Medical Decision Making 37-year-old female process to the emergency department for a chief complaint of left lower extremity pain 4 days. On exam patient does have mild edema noted of the left ankle and foot. No erythema or warmth noted of the left calf. Positive Homans sign. X-ray shows osteoarthritis of the left foot and ankle. Ultrasound demonstrates no evident DVT at or above the left knee. Patient does have a high BMI which is likely contributing to the left foot pain along with arthritis. At this time there is no evidence of infection at the foot is non- erythematous and temperature is equal bilaterally. Patient will take Motrin and Tylenol for pain. She will follow up with primary care in 1-2 days. She will return if she has any worsening symptoms such as fevers, redness, or increased pain. Disposition Clinical Impression: Left foot pain Disposition: HOME SELF-CARE Condition: Good Instructions: Arthralgia (ED) Additional Instructions: Please take Motrin and Tylenol for pain. Please follow-up with primary care in 1-2 days. Return to the emergency department if you have any worsening symptoms. Is patient prescribed a controlled substance at d/c from ED?: No Referrals: Joseph Puentes MD [Primary Care Provider] - 1-2 days Time of Disposition: 13:14
--- NOTE | 2018-01-12 10:55 | XR ---
Left ankle and left foot HISTORY: Left ankle and foot pain 3 views of the left ankle and 3 views of the left foot are submitted. Soft tissue swelling is noted at the ankle. Degenerative changes are present at the intertarsal joint s. There is a plantar calcaneal spur present. No fracture or dislocation. Enthesophyte present at the insertion of the Achilles tendon. IMPRESSION: Osteoarthritis, soft tissue swelling. Plantar calcaneal spur.
--- NOTE | 2018-01-12 12:35 | US ---
EXAMINATION TYPE: US venous doppler duplex LE LT DATE OF EXAM: 01/12/2018 12:26 PM COMPARISON: NONE CLINICAL HISTORY: Pain. SIDE PERFORMED: Left TECHNIQUE: The lower extremity deep venous system is examined utilizing real time linear array sonog anastasia with graded compression, doppler sonography and color-flow sonography. VESSELS IMAGED: External Iliac Vein (EIV) Common Femoral Vein Deep Femoral Vein Greater Saphenous Vein * Femoral Vein Popliteal Vein Small Saphenous Vein * Proximal Calf Veins (* superficial vessels) Patient morbidly obese, technically difficult study. Left Leg: Negative for DVT There is normal flow, compressibility, vascular waveforms. Some edema suspected within the soft tissu es posterior to the knee IMPRESSION: No evident deep venous thrombosis at or above the left knee. There may be limitations to the exam. Follow-up as indicated.
[2018-01-12] MEDS ORDERED: KETOROLAC 30 MG/ML 1 ML VIAL IM STA (13:29)
[2018-01-12 13:43] VITALS: BP 130/79; PULSE 78; RESP 16
== END 2018-01-12 13:43 | disposition home or self-care (01) ==
LOC: EC 10:00
DX: M79.672 Pain in left foot (principal); F41.9 Anxiety disorder, unspecified; F20.9 Schizophrenia, unspecified; M19.072 Primary osteoarthritis, left ankle and foot; F17.200 Nicotine dependence, unspecified, uncomplicated; Z90.49 Acquired absence of other specified parts of digestive tract; Z98.51 Tubal ligation status; Z79.1 Long term (current) use of non-steroidal anti-inflammatories (NSAID); Z79.51 Long term (current) use of inhaled steroids; Z79.899 Other long term (current) drug therapy; Z88.0 Allergy status to penicillin; Z88.5 Allergy status to narcotic agent; Z88.6 Allergy status to analgesic agent; Z88.8 Allergy status to other drugs, medicaments and biological substances; Z91.048 Other nonmedicinal substance allergy status
CPT/HCPCS: 73610; 73630; 93971; 99284; 96372; J1885

== ENCOUNTER 2018-05-31 11:37 | Emergency (ER) | payer MEDICARE, OTHER ==
[2018-05-31 11:47] VITALS: RESP 18; TEMP 97.4
[2018-05-31] MEDS ORDERED: SODIUM CHLORIDE 0.9% 1,000 ML IV STA (11:56)
[2018-05-31] MEDS ORDERED: HYDROmorphone 0.5 MG/0.5 ML SYRINGE IVP STA (11:57)
--- NOTE | 2018-05-31 12:04 | ED ---
Abdominal Pain HPI - General Chief Complaint: Abdominal Pain Stated Complaint: Poss kidney stone Time Seen by Provider: 05/31/18 11:42 Source: patient, RN notes reviewed Mode of arrival: ambulatory Limitations: no limitations - History of Present Illness Initial Comments: 38-year-old female presents emergency Department with chief complaint right flank pain. Patient states has been on and off for last few weeks. Patient states it feels like her normal kidney stone. Patient does admit to intermittent nausea no vomiting no diarrhea no constipation. Patient had a prior cholecystectomy and tubal ligation. Patient has not discussed this pain with her primary care physician. Patient does take chronic pain meds including [place] 10/325. Patient states this has not helped. Patient has no noted hematuria but admits to some dysuria. - Related Data Home Medications Medication Instructions Recorded Confirmed HYDROcodone/APAP 10-325MG [[place] 1 tab PO TID PRN 03/14/16 05/31/18 10-325] Albuterol Inhaler [Ventolin Hfa 1 - 2 puff INHALATION RT-Q6H PRN 01/12/18 05/31/18 Inhaler] Atenolol 25 mg PO DAILY 01/12/18 05/31/18 Diazepam [Valium] 10 mg PO TID 01/12/18 05/31/18 Fluticasone/Vilanterol [Breo 1 puff INHALATION RT-DAILY 01/12/18 05/31/18 Ellipta 200-25 Mcg INH] Meloxicam [Mobic] 7.5 mg PO DAILY 01/12/18 05/31/18 Omeprazole 20 mg PO HS 01/12/18 05/31/18 Prochlorperazine [Compazine] 10 mg PO Q6H PRN 01/12/18 05/31/18 Acetaminophen [Tylenol Extra 500 mg PO TID PRN 05/31/18 05/31/18 Strength] FLUoxetine HCL [PROzac] 40 mg PO DAILY 05/31/18 05/31/18 Loratadine [Claritin] 10 mg PO DAILY 05/31/18 05/31/18 Allergies Allergy/AdvReac Type Severity Reaction Status Date / Time aripiprazole [From Abilify] Allergy Unknown Verified 05/31/18 12:51 asenapine [From Saphris] Allergy Unknown Verified 05/31/18 12:51 carbamazepine [From Tegretol] Allergy Unknown Verified 05/31/18 12:51 citalopram [From Celexa] Allergy Unknown Verified 05/31/18 12:51 clonazepam [From Klonopin] Allergy Unknown Verified 05/31/18 12:51 divalproex sodium Allergy Unknown Verified 05/31/18 12:51 [From Depakote] duloxetine HCl Allergy Rash/Hives Verified 05/31/18 12:51 [From Cymbalta] escitalopram [From Lexapro] Allergy Unknown Verified 05/31/18 12:51 fluoxetine [From Prozac] Allergy Unknown Verified 05/31/18 12:51 fluvoxamine [From Luvox] Allergy Unknown Verified 05/31/18 12:51 haloperidol [From Haldol] Allergy Unknown Verified 05/31/18 12:51 Iodine and Iodide Containing Allergy Rash/Hives Verified 05/31/18 12:51 Produc ketorolac [From Toradol] Allergy Unknown Verified 05/31/18 12:51 lamotrigine [From Lamictal] Allergy Unknown Verified 05/31/18 12:51 lithium Allergy Unknown Verified 05/31/18 12:51 loxapine [From Loxitane] Allergy Unknown Verified 05/31/18 12:51 lurasidone [From Latuda] Allergy Unknown Verified 05/31/18 12:51 meperidine [From Demerol] Allergy Unknown Verified 05/31/18 12:51 morphine Allergy Unknown Verified 05/31/18 12:51 olanzapine [From Zyprexa] Allergy Unknown Verified 05/31/18 12:51 paroxetine [From Paxil] Allergy Unknown Verified 05/31/18 12:51 paroxetine HCl [From Paxil] Allergy Rash/Hives Verified 05/31/18 12:51 Penicillins Allergy Rash/Hives Verified 05/31/18 12:51 potassium Allergy Unknown Verified 05/31/18 12:51 quetiapine [From Seroquel] Allergy Unknown Verified 05/31/18 12:51 risperidone [From Risperdal] Allergy Unknown Verified 05/31/18 12:51 sertraline [From Zoloft] Allergy Unknown Verified 05/31/18 12:51 ziprasidone [From Geodon] Allergy Unknown Verified 05/31/18 12:51 CONTROL PILLS Allergy Unknown Uncoded 05/31/18 11:47 steroids Allergy Unknown Uncoded 05/31/18 11:47 Review of Systems ROS Statement: Those systems with pertinent positive or pertinent negative responses have been documented in the HPI. ROS Other: All systems not noted in ROS Statement are negative. Past Medical History Past Medical History: No Reported History, Renal Disease Additional Past Medical History / Comment(s): Chronic back pain, insomnia, kidney stones History of Any Multi-Drug Resistant Organisms: None Reported Past Surgical History: Cholecystectomy, Tubal Ligation Past Anesthesia/Blood Transfusion Reactions: No Reported Reaction Past Psychological History: Anxiety, Bipolar, Depression, Panic Disorder, Schizophrenia Smoking Status: Current every day smoker Past Alcohol Use History: None Reported Past Drug Use History: None Reported - Past Family History Brother(s) History Unknown: Yes Father Family Medical History: Hyperlipidemia Additional Family Medical History / Comment(s): CAD with triple bypass surgery Mother Family Medical History: Liver Disease Additional Family Medical History / Comment(s): Mother at age 46 from liver cirrhosis due to alcoholism General Exam Limitations: no limitations General appearance: alert, in no apparent distress Head exam: Present: atraumatic, normocephalic, normal inspection Respiratory exam: Present: normal lung sounds bilaterally. Absent: respiratory distress, wheezes, rales, rhonchi, stridor Cardiovascular Exam: Present: regular rate, normal rhythm, normal heart sounds. Absent: systolic murmur, diastolic murmur, rubs, gallop, clicks GI/Abdominal exam: Present: soft, normal bowel sounds. Absent: distended, tenderness, guarding, rebound, rigid Back exam: Present: full ROM, tenderness, CVA tenderness (R). Absent: CVA tenderness (L), muscle spasm, paraspinal tenderness, vertebral tenderness Neurological exam: Present: alert, oriented X3, CN II-XII intact, reflexes normal. Absent: motor sensory deficit Skin exam: Present: warm, dry, intact, normal color. Absent: rash Course Vital Signs 05/31/18 11:44 Temperature 97.4 F L Pulse Rate 73 Respiratory 18 Rate Blood Pressure 112/71 O2 Sat by Pulse 97 Oximetry Medical Decision Making - Medical Decision Making 38-year-old female presents emergency Department chief complaint of right flank pain. Patient has history kidney stones and x-ray shows nephrolithiasis. Patient labwork is unremarkable. Patient follow-up with urology for possible pain related to kidney stone. Return parameters were discussed. - Lab Data Result diagrams: 05/31/18 13:15 05/31/18 13:15 Lab Results 05/31/18 05/31/18 05/31/18 Range/Units 13:15 13:15 13:15 WBC 10.2 (3.8-10.6) k/uL RBC 4.90 (3.80-5.40) m/uL Hgb 15.1 (11.4-16.0) gm/dL Hct 46.5 H (34.0-46.0) % MCV 94.8 (80.0-100.0) fL MCH 30.7 (25.0-35.0) pg MCHC 32.4 (31.0-37.0) g/dL RDW 12.8 (11.5-15.5) % Plt Count 302 (150-450) k/uL Neutrophils % 57 % Lymphocytes % 30 % Monocytes % 6 % Eosinophils % 4 % Basophils % 1 % Neutrophils # 5.8 (1.3-7.7) k/uL Lymphocytes # 3.0 (1.0-4.8) k/uL Monocytes # 0.6 (0-1.0) k/uL Eosinophils # 0.4 (0-0.7) k/uL Basophils # 0.1 (0-0.2) k/uL Sodium 136 L (137-145) mmol/L Potassium 4.5 (3.5-5.1) mmol/L Chloride 104 (98-107) mmol/L Carbon Dioxide 26 (22-30) mmol/L Anion Gap 6 mmol/L BUN 13 (7-17) mg/dL Creatinine 0.78 (0.52-1.04) mg/dL Est GFR (CKD-EPI)AfAm >90 (>60 ml/min/1.73 sqM) Est GFR (CKD-EPI)NonAf >90 (>60 ml/min/1.73 sqM) Glucose 72 L (74-99) mg/dL Calcium 9.7 (8.4-10.2) mg/dL Total Bilirubin 0.3 (0.2-1.3) mg/dL AST 20 (14-36) U/L ALT 33 (9-52) U/L Alkaline Phosphatase 77 (38-126) U/L Total Protein 7.0 (6.3-8.2) g/dL Albumin 3.8 (3.5-5.0) g/dL Amylase 48 (30-110) U/L Lipase 62 (23-300) U/L Urine Color Urine Appearance (Clear) Urine pH (5.0-8.0) Ur Specific [place] (1.001-1.035) Urine Protein (Negative) Urine Glucose (UA) (Negative) Urine Ketones (Negative) Urine Blood (Negative) Urine Nitrite (Negative) Urine Bilirubin (Negative) Urine Urobilinogen (<2.0) mg/dL Ur Leukocyte Esterase (Negative) Urine RBC (0-5) /hpf Urine WBC (0-5) /hpf Ur Squamous Epith Cells (0-4) /hpf Amorphous Sediment (None) /hpf Hyaline Casts (0-2) /lpf Urine Mucus (None) /hpf Urine HCG, Qual Not Detected (Not Detectd) 05/31/18 Range/Units 13:15 WBC (3.8-10.6) k/uL RBC (3.80-5.40) m/uL Hgb (11.4-16.0) gm/dL Hct (34.0-46.0) % MCV (80.0-100.0) fL MCH (25.0-35.0) pg MCHC (31.0-37.0) g/dL RDW (11.5-15.5) % Plt Count (150-450) k/uL Neutrophils % % Lymphocytes % % Monocytes % % Eosinophils % % Basophils % % Neutrophils # (1.3-7.7) k/uL Lymphocytes # (1.0-4.8) k/uL Monocytes # (0-1.0) k/uL Eosinophils # (0-0.7) k/uL Basophils # (0-0.2) k/uL Sodium (137-145) mmol/L Potassium (3.5-5.1) mmol/L Chloride (98-107) mmol/L Carbon Dioxide (22-30) mmol/L Anion Gap mmol/L BUN (7-17) mg/dL Creatinine (0.52-1.04) mg/dL Est GFR (CKD-EPI)AfAm (>60 ml/min/1.73 sqM) Est GFR (CKD-EPI)NonAf (>60 ml/min/1.73 sqM) Glucose (74-99) mg/dL Calcium (8.4-10.2) mg/dL Total Bilirubin (0.2-1.3) mg/dL AST (14-36) U/L ALT (9-52) U/L Alkaline Phosphatase (38-126) U/L Total Protein (6.3-8.2) g/dL Albumin (3.5-5.0) g/dL Amylase (30-110) U/L Lipase (23-300) U/L Urine Color Light Yellow Urine Appearance Cloudy H (Clear) Urine pH 6.0 (5.0-8.0) Ur Specific [place] 1.008 (1.001-1.035) Urine Protein Negative (Negative) Urine Glucose (UA) Negative (Negative) Urine Ketones Negative (Negative) Urine Blood Negative (Negative) Urine Nitrite Negative (Negative) Urine Bilirubin Negative (Negative) Urine Urobilinogen <2.0 (<2.0) mg/dL Ur Leukocyte Esterase Negative (Negative) Urine RBC <1 (0-5) /hpf Urine WBC 3 (0-5) /hpf Ur Squamous Epith Cells 6 H (0-4) /hpf Amorphous Sediment Rare H (None) /hpf Hyaline Casts 4 H (0-2) /lpf Urine Mucus Occasional H (None) /hpf Urine HCG, Qual (Not Detectd) Disposition Clinical Impression: Nephrolithiasis Disposition: HOME SELF-CARE Condition: Stable Instructions (If sedation given, give patient instructions): Kidney Stones (ED) Additional Instructions: Please return to the Emergency Department if symptoms worsen or any other concerns. Is patient prescribed a controlled substance at d/c from ED?: No Referrals: Joseph Puentes MD [Primary Care Provider] - 1-2 days Bobby Diamond MD [STAFF PHYSICIAN] - 1-2 days Time of Disposition: 14:00
[2018-05-31 13:24] LABS: Basophils # (A) 0.1 k/uL (0-0.2); Basophils % (A) 1 %; Eosinophils # (A) 0.4 k/uL (0-0.7); Eosinophils % (A) 4 %; HCT 46.5 % (34.0-46.0); HGB 15.1 gm/dL (11.4-16.0); Lymphocytes % (A) 30 %; MCH 30.7 pg (25.0-35.0); MCHC 32.4 g/dL (31.0-37.0); MCV 94.8 fL (80.0-100.0); Mean Platelet Volume 6.9; Monocytes # (A) 0.6 k/uL (0-1.0); Monocytes % (A) 6 %; Neutrophils # (A) 5.8 k/uL (1.3-7.7); Neutrophils % (A) 57 %; Platelet Count 302 k/uL (150-450); RDW 12.8 % (11.5-15.5); WBC 10.2 k/uL (3.8-10.6)
[2018-05-31 13:28] LABS: Amorphous Sediment,Urine Rare /hpf; Appearance,Urine Cloudy (Clear); Bilirubin,Urine Negative (Negative); Blood,Urine Negative (Negative); Color,Urine Light Yellow; Glucose,Urine (UA) Negative (Negative); Hyaline Casts,Urine 4 /lpf (0-2); Ketones,Urine Negative (Negative); Leukocyte Esterase,Urine Negative (Negative); Mucus,Urine Occasional /hpf; Nitrite,Urine Negative (Negative); Protein,Urine Negative (Negative); RBC,Urine <1 /hpf (0-5); Specific Gravity,Urine 1.008 (1.001-1.035); Squamous Epithelial Cell,Urine 6 /hpf (0-4); Urobilinogen,Urine <2.0 mg/dL (<2.0)
[2018-05-31 13:33] LABS: ALT 33 U/L (9-52); AST 20 U/L (14-36); Albumin 3.8 g/dL (3.5-5.0); Alkaline Phosphatase 77 U/L (38-126); Amylase 48 U/L (30-110); Anion Gap 6 mmol/L; Blood Urea Nitrogen 13 mg/dL (7-17); Calcium 9.7 mg/dL (8.4-10.2); Carbon Dioxide 26 mmol/L (22-30); Chloride 104 mmol/L (98-107); Glucose 72 mg/dL (74-99); Lipase 62 U/L (23-300); Potassium 4.5 mmol/L (3.5-5.1); Sodium 136 mmol/L (137-145); Total Bilirubin 0.3 mg/dL (0.2-1.3)
--- NOTE | 2018-05-31 13:53 | XR ---
Abdomen HISTORY: Right-sided abdominal pain Frontal view the abdomen on 2 images There is a calcification superimposed over the right kidney lower pole measuring approximately 6 to 7 mm. Surgical clips are present right upper quadrant. Lung bases are clear. No evident bowel obstruct ion or pneumoperitoneum. Probable vascular calcifications present within the pelvis. IMPRESSION: Right-sided nephrolithiasis.
[2018-05-31 14:40] VITALS: BP 123/80; PULSE 64
== END 2018-05-31 14:57 | disposition home or self-care (01) ==
LOC: EC 11:37
DX: N20.0 Calculus of kidney (principal); F41.0 Panic disorder [episodic paroxysmal anxiety]; F31.9 Bipolar disorder, unspecified; F20.9 Schizophrenia, unspecified; F17.200 Nicotine dependence, unspecified, uncomplicated; Z79.1 Long term (current) use of non-steroidal anti-inflammatories (NSAID); Z79.899 Other long term (current) drug therapy; Z88.8 Allergy status to other drugs, medicaments and biological substances; Z91.048 Other nonmedicinal substance allergy status; Z88.5 Allergy status to narcotic agent; Z88.0 Allergy status to penicillin; Z88.6 Allergy status to analgesic agent; Z90.49 Acquired absence of other specified parts of digestive tract
CPT/HCPCS: 36415; 80053; 82150; 83690; 85025; 81001; 81025; 74018; 99284; 96374; 96361; J1170

== ENCOUNTER → 2018-11-04 | Outpatient (CLI) | payer MEDICARE, OTHER ==
--- NOTE | 2018-11-04 11:35 | MR ---
EXAMINATION TYPE: MR cervical spine wo con DATE OF EXAM: 11/04/2018 COMPARISON: None HISTORY: 38-year-old female with Neck pain TECHNIQUE: Multiplanar, multisequence images of the cervical spine were acquired. FINDINGS: No craniocervical junction abnormality, predental space widening, or prevertebral soft tissue swellin g. No suspicious bone marrow replacement. Alignment is maintained. Variable mild intervertebral disc desiccation. Sterile bulging discs are present at C4-C5 off to the right and at C6-C7. Mild ligamentum flavum thickening also noted at C6-C7. Scattered mild facet and uncovertebral joint arthropathy. There is a component of mild congenital spinal canal narrowing of the cervical spine with AP canal di mension of 1 cm. No prevertebral or paravertebral soft tissue abnormality. At C2-C3, no significant canal or foraminal stenosis. At C3-C4, no significant canal or foraminal stenosis. At C4-C5, right paracentral broad-based disc protrusion with some right-sided uncovertebral joint art hropathy and mild facet arthropathy. Changes result in mild right neuroforaminal stenosis with accent uation of the mild spinal canal stenosis with abutment of the right ventral cord. No cord compression or myelopathic cord signal change. At C5-C6, uncovertebral joint and facet degenerative change. Changes contribute to moderate right jackelyn roforaminal stenosis and mild left neuroforaminal narrowing. No significant spinal canal stenosis. At C6-C7, broad-based disc osteophyte complex with contiguous uncovertebral joint arthropathy. Additi onal bilateral facet degenerative change. Changes result in moderate to severe right and mild to mode rate left neuroforaminal stenosis. There is overall mild to moderate spinal canal stenosis with abutm ent of both the dorsal and ventral cord but no nigel cord compression or myelopathic cord signal cobb ge. At C7-T1, no canal or foraminal stenosis. IMPRESSION: 1. 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 Scattered mild facet and uncovertebral joint arthropathy. 2. Right paracentral disc bulge at C4-C5 accentuates the mild spinal canal narrowing. Mild right neur al foraminal stenosis at this level. 3. Additional posterior disc bulge at C6-C7 along with mildly thickened ligamentum flavum contributes to mild to moderate overall spinal canal stenosis with abutment of both the dorsal and ventral cord but without cord compression or myelopathic cord signal change. Moderate to severe right and mild-to- moderate left neuroforaminal stenosis at this level. 4. Moderate right neural foraminal stenosis at C5-C6.
== END | disposition home or self-care (01) ==
LOC: RADMRIMAIN 08:33
PROVIDERS: ATTEND Family Medicine
DX: M48.02 Spinal stenosis, cervical region (principal); M50.221 Other cervical disc displacement at C4-C5 level; M50.322 Other cervical disc degeneration at C5-C6 level; M46.92 Unspecified inflammatory spondylopathy, cervical region; M24.28 Disorder of ligament, vertebrae
CPT/HCPCS: 72141

== ENCOUNTER → 2018-12-31 | Outpatient (CLI) | payer MEDICARE, OTHER ==
--- NOTE | 2018-12-31 14:24 | MR ---
EXAMINATION TYPE: MR brain wo/w con DATE OF EXAM: 12/31/2018 COMPARISON: None HISTORY: Hydrocephalus CONTRAST: Performed utilizing 12 mL intravenous Gadavist gadolinium contrast. TECHNIQUE: Multiplanar, multiecho imaging on a 3.0 Jeanie magnet is performed through the brain. Stud y is performed within 24 hours of arrival to the hospital. The craniovertebral junction is normal. The pituitary is normal. Diffusion-weighted imaging is performed. No abnormal hyperintensity is present to suggest an acute i ntracranial infarct or acute ischemic change. A solitary subcortical white matter change posterior left parietal lobe 0.5 cm. Series 501 and 19. Pu nctate hyperintensities in subcortical right frontal lobe white matter. Ventricles and sulci are appropriate for the patient age. Temporal horns are normal. No dilatation of the ventricles is evident. No abnormal enhancement is evident. IMPRESSIONS: 1. Couple of areas of white matter change are nonspecific. Migraine headaches could have this appeara nce. Microvascular ischemic change could be considered. This portion of the patient's age. 2. No suspicious changes to suggest hydrocephalus.
== END | disposition home or self-care (01) ==
LOC: RADMRIMAIN 12:55
PROVIDERS: ATTEND Family Medicine
DX: R90.89 Other abnormal findings on diagnostic imaging of central nervous system (principal)
CPT/HCPCS: 70553; A9585

== ENCOUNTER 2020-06-28 16:08 | Emergency (ER) | payer MEDICARE, OTHER ==
--- NOTE | 2020-06-28 16:43 | ED ---
Upper Extremity HPI - General Stated Complaint: R shoulder pain Time Seen by Provider: 06/28/20 16:38 Source: patient, RN notes reviewed Mode of arrival: ambulatory Limitations: no limitations - History of Present Illness Initial Comments: This a 40-year-old female presents emergency Department chief complaint right shoulder pain. Patient states pain started 4 days ago. She denies any trauma but states that she may have slipped on the wrong. Patient states that there is pain with movement of right shoulder. No chest pain or shortness of breath. Patient states that she has some pain when she turns her neck has no other pains otherwise. She states it is physical muscle pulling. No paresthesias she does have some pain radiates down her arm. - Related Data Home Medications Medication Instructions Recorded Confirmed HYDROcodone/APAP 10-325MG [[place] 1 tab PO TID PRN 03/14/16 05/31/18 10-325] Albuterol Inhaler (Mhu) [Ventolin 1 - 2 puff INHALATION RT-Q6H PRN 01/12/18 05/31/18 Hfa Inhaler] Diazepam [Valium] 10 mg PO TID 01/12/18 05/31/18 Fluticasone/Vilanterol [Breo 1 puff INHALATION RT-DAILY 01/12/18 05/31/18 Ellipta 200-25 Mcg INH] Meloxicam [Mobic] 7.5 mg PO DAILY 01/12/18 05/31/18 Omeprazole 20 mg PO HS 01/12/18 05/31/18 Prochlorperazine [Compazine] 10 mg PO Q6H PRN 01/12/18 05/31/18 atenoloL [Atenolol] 25 mg PO DAILY 01/12/18 05/31/18 Acetaminophen [Tylenol Extra 500 mg PO TID PRN 05/31/18 05/31/18 Strength] FLUoxetine HCL [PROzac] 40 mg PO DAILY 05/31/18 05/31/18 Loratadine [Claritin] 10 mg PO DAILY 05/31/18 05/31/18 Previous Rx's Medication Instructions Recorded Cyclobenzaprine [Flexeril] 10 mg PO TID PRN #15 tab 06/28/20 Allergies Allergy/AdvReac Type Severity Reaction Status Date / Time aripiprazole [From [facility]] Allergy Unknown Verified 06/28/20 16:44 asenapine [From Saphris] Allergy Unknown Verified 06/28/20 16:44 carbamazepine [From Tegretol] Allergy Unknown Verified 06/28/20 16:44 citalopram [From Celexa] Allergy Unknown Verified 06/28/20 16:44 clonazepam [From Klonopin] Allergy Unknown Verified 06/28/20 16:44 divalproex sodium Allergy Unknown Verified 06/28/20 16:44 [From Depakote] duloxetine HCl Allergy Rash/Hives Verified 06/28/20 16:44 [From Cymbalta] escitalopram [From Lexapro] Allergy Unknown Verified 06/28/20 16:44 fluoxetine [From Prozac] Allergy Unknown Verified 06/28/20 16:44 fluvoxamine [From Luvox] Allergy Unknown Verified 06/28/20 16:44 haloperidol [From Haldol] Allergy Unknown Verified 06/28/20 16:44 Iodine and Iodide Containing Allergy Rash/Hives Verified 06/28/20 16:44 Produc ketorolac [From Toradol] Allergy Unknown Verified 06/28/20 16:44 lamotrigine [From Lamictal] Allergy Unknown Verified 06/28/20 16:44 lithium Allergy Unknown Verified 06/28/20 16:44 loxapine [From Loxitane] Allergy Unknown Verified 06/28/20 16:44 lurasidone [From Latuda] Allergy Unknown Verified 06/28/20 16:44 meperidine [From Demerol] Allergy Unknown Verified 06/28/20 16:44 morphine Allergy Unknown Verified 06/28/20 16:44 olanzapine [From Zyprexa] Allergy Unknown Verified 06/28/20 16:44 paroxetine [From Paxil] Allergy Unknown Verified 06/28/20 16:44 paroxetine HCl [From Paxil] Allergy Rash/Hives Verified 06/28/20 16:44 Penicillins Allergy Rash/Hives Verified 06/28/20 16:44 potassium Allergy Unknown Verified 06/28/20 16:44 quetiapine [From Seroquel] Allergy Unknown Verified 06/28/20 16:44 risperidone [From Risperdal] Allergy Unknown Verified 06/28/20 16:44 sertraline [From Zoloft] Allergy Unknown Verified 06/28/20 16:44 ziprasidone [From Geodon] Allergy Unknown Verified 06/28/20 16:44 CONTROL PILLS Allergy Unknown Uncoded 06/28/20 16:44 steroids Allergy Unknown Uncoded 06/28/20 16:44 Review of Systems ROS Statement: Those systems with pertinent positive or pertinent negative responses have been documented in the HPI. ROS Other: All systems not noted in ROS Statement are negative. Past Medical History Past Medical History: No Reported History, Renal Disease Additional Past Medical History / Comment(s): Chronic back pain, insomnia, kidney stones History of Any Multi-Drug Resistant Organisms: None Reported Past Surgical History: Cholecystectomy, Tubal Ligation Past Anesthesia/Blood Transfusion Reactions: No Reported Reaction Past Psychological History: Anxiety, Bipolar, Depression, Panic Disorder, Schizophrenia Past Alcohol Use History: None Reported Past Drug Use History: None Reported - Past Family History Brother(s) History Unknown: Yes Father Family Medical History: Hyperlipidemia Additional Family Medical History / Comment(s): CAD with triple bypass surgery Mother Family Medical History: Liver Disease Additional Family Medical History / Comment(s): Mother at age 46 from liver cirrhosis due to alcoholism General Exam General appearance: alert, in no apparent distress Head exam: Present: atraumatic, normocephalic, normal inspection Eye exam: Present: normal appearance, PERRL, EOMI. Absent: scleral icterus, conjunctival injection, periorbital swelling ENT exam: Present: normal exam, normal oropharynx, mucous membranes moist Neck exam: Present: normal inspection, tenderness (Over the the right trapezius), full ROM. Absent: meningismus, lymphadenopathy Respiratory exam: Present: normal lung sounds bilaterally. Absent: respiratory distress, wheezes, rales, rhonchi, stridor Cardiovascular Exam: Present: regular rate, normal rhythm, normal heart sounds. Absent: systolic murmur, diastolic murmur, rubs, gallop, clicks Extremities exam: Present: other (Upper extremity strength equal bilaterally neurovascular intact equal radial pulses, cap refill less than 2 seconds) Course Vital Signs 06/28/20 16:40 Temperature 97.7 F Pulse Rate 70 Respiratory 20 Rate Blood Pressure 149/94 O2 Sat by Pulse 98 Oximetry Medical Decision Making - Medical Decision Making X-rays unremarkable. Patient's symptoms were consistent with cervical radiculopathy, right trapezius muscle spasms. Patient has no neurological deficits. Patient we discharged in stable condition advised follow-up with orthopedics. She is advised to apply heat and ice and return for any worsening change in symptoms. Disposition Clinical Impression: Trapezius muscle spasm, Right shoulder pain, Cervical radiculopathy Disposition: HOME SELF-CARE Condition: Stable Instructions (If sedation given, give patient instructions): Shoulder Pain (ED) Additional Instructions: Please return to the Emergency Department if symptoms worsen or any other concerns. Prescriptions: Cyclobenzaprine [Flexeril] 10 mg PO TID PRN #15 tab PRN Reason: Muscle Spasm Is patient prescribed a controlled substance at d/c from ED?: No Referrals: Mike Kent DO [Primary Care Provider] - 1-2 days Naif Burk MD [STAFF PHYSICIAN] - 1-2 days Time of Disposition: 17:30
[2020-06-28 16:44] VITALS: BP 149/94; PULSE 70; RESP 20; TEMP 97.7
--- NOTE | 2020-06-28 17:04 | XR ---
EXAMINATION TYPE: XR shoulder complete RT DATE OF EXAM: 06/28/2020 COMPARISON: NONE HISTORY: Shoulder pain for 4 days TECHNIQUE: 3 views FINDINGS: There is no evidence of fracture nor dislocation. Joint spaces are normal. There are no pat hologic calcifications. IMPRESSION: Negative right shoulder exam. No fracture.
[2020-06-28] MEDS ORDERED: ACET/COD 300 MG/30 MG STARTER PACK 6 TAB BTL PO STA (17:30)
[2020-06-28] MEDS ORDERED: CYCLOBENZAPRINE 10MG STARTER 3 TAB BTL PO STA (17:30)
== END 2020-06-28 18:31 | disposition home or self-care (01) ==
LOC: EC 16:08
DX: M62.838 Other muscle spasm (principal); M54.12 Radiculopathy, cervical region; M25.511 Pain in right shoulder; F41.9 Anxiety disorder, unspecified; F32.9 Major depressive disorder, single episode, unspecified; Z88.0 Allergy status to penicillin
CPT/HCPCS: 99283

== ENCOUNTER 2020-08-05 15:59 | Inpatient (IN) | payer MEDICARE, OTHER ==
--- NOTE | 2020-08-05 16:24 | ED ---
General Adult HPI - General Chief complaint: Abdominal Pain Stated complaint: Abd/Back Pain Time Seen by Provider: 08/05/20 16:20 Source: patient Mode of arrival: wheelchair Limitations: no limitations - History of Present Illness Initial comments: Patient presents to the ED with her lei for evaluation. Patient states that she developed sudden onset right flank pain radiating to her right lower quadrant abdomen about 2-1/2 hours ago while driving. Patient states that she has had associated nausea, and she states that she vomited once on arrival to the ED. Patient states that she has a history of kidney stones, and she states that she has had similar symptoms from her kidney stones in the past. Patient denies trauma or injury, fall, leg pain/numbness/ weakness, incontinence or urinary retention, fever or chills, headache, chest pain, dyspnea, dizziness, diarrhea or constipation, bloody or melanotic stool, hematemesis, dysuria/hematuria/urinary frequency/urinary symptoms, vaginal bleeding or discharge, or any other symptoms or complaints. - Related Data Home Medications Medication Instructions Recorded Confirmed HYDROcodone/APAP 10-325MG [[place] 1 tab PO TID PRN 03/14/16 05/31/18 10-325] Albuterol Inhaler (Mhu) [Ventolin 1 - 2 puff INHALATION RT-Q6H PRN 01/12/18 05/31/18 Hfa Inhaler] Diazepam [Valium] 10 mg PO TID 01/12/18 05/31/18 Fluticasone/Vilanterol [Breo 1 puff INHALATION RT-DAILY 01/12/18 05/31/18 Ellipta 200-25 Mcg INH] Meloxicam [Mobic] 7.5 mg PO DAILY 01/12/18 05/31/18 Omeprazole 20 mg PO HS 01/12/18 05/31/18 Prochlorperazine [Compazine] 10 mg PO Q6H PRN 01/12/18 05/31/18 atenoloL [Atenolol] 25 mg PO DAILY 01/12/18 05/31/18 Acetaminophen [Tylenol Extra 500 mg PO TID PRN 05/31/18 05/31/18 Strength] FLUoxetine HCL [PROzac] 40 mg PO DAILY 05/31/18 05/31/18 Loratadine [Claritin] 10 mg PO DAILY 05/31/18 05/31/18 Previous Rx's Medication Instructions Recorded Cyclobenzaprine [Flexeril] 10 mg PO TID PRN #15 tab 06/28/20 Allergies Allergy/AdvReac Type Severity Reaction Status Date / Time aripiprazole [From Abilify] Allergy Unknown Verified 08/05/20 16:08 asenapine [From Saphris] Allergy Unknown Verified 08/05/20 16:08 carbamazepine [From Tegretol] Allergy Unknown Verified 08/05/20 16:08 citalopram [From Celexa] Allergy Unknown Verified 08/05/20 16:08 clonazepam [From Klonopin] Allergy Unknown Verified 08/05/20 16:08 divalproex sodium Allergy Unknown Verified 08/05/20 16:08 [From Depakote] duloxetine HCl Allergy Rash/Hives Verified 08/05/20 16:08 [From Cymbalta] escitalopram [From Lexapro] Allergy Unknown Verified 08/05/20 16:08 fluoxetine [From Prozac] Allergy Unknown Verified 08/05/20 16:08 fluvoxamine [From Luvox] Allergy Unknown Verified 08/05/20 16:08 haloperidol [From Haldol] Allergy Unknown Verified 08/05/20 16:08 Iodine and Iodide Containing Allergy Rash/Hives Verified 08/05/20 16:08 Produc ketorolac [From Toradol] Allergy Unknown Verified 08/05/20 16:08 lamotrigine [From Lamictal] Allergy Unknown Verified 08/05/20 16:08 lithium Allergy Unknown Verified 08/05/20 16:08 loxapine [From Loxitane] Allergy Unknown Verified 08/05/20 16:08 lurasidone [From Latuda] Allergy Unknown Verified 08/05/20 16:08 meperidine [From Demerol] Allergy Unknown Verified 08/05/20 16:08 morphine Allergy Unknown Verified 08/05/20 16:08 olanzapine [From Zyprexa] Allergy Unknown Verified 08/05/20 16:08 paroxetine [From Paxil] Allergy Unknown Verified 08/05/20 16:08 paroxetine HCl [From Paxil] Allergy Rash/Hives Verified 08/05/20 16:08 Penicillins Allergy Rash/Hives Verified 08/05/20 16:08 potassium Allergy Unknown Verified 08/05/20 16:08 quetiapine [From Seroquel] Allergy Unknown Verified 08/05/20 16:08 risperidone [From Risperdal] Allergy Unknown Verified 08/05/20 16:08 sertraline [From Zoloft] Allergy Unknown Verified 08/05/20 16:08 ziprasidone [From Geodon] Allergy Unknown Verified 08/05/20 16:08 CONTROL PILLS Allergy Unknown Uncoded 08/05/20 16:08 steroids Allergy Unknown Uncoded 08/05/20 16:08 Review of Systems ROS Statement: Those systems with pertinent positive or pertinent negative responses have been documented in the HPI. ROS Other: All systems not noted in ROS Statement are negative. Past Medical History Past Medical History: Renal Disease Additional Past Medical History / Comment(s): Chronic back pain, insomnia, kidney stones History of Any Multi-Drug Resistant Organisms: None Reported Past Surgical History: Cholecystectomy, Tubal Ligation Past Anesthesia/Blood Transfusion Reactions: No Reported Reaction Past Psychological History: Anxiety, Bipolar, Depression, Panic Disorder, Schizophrenia Smoking Status: Current every day smoker Past Alcohol Use History: None Reported Past Drug Use History: None Reported - Past Family History Brother(s) History Unknown: Yes Father Family Medical History: Hyperlipidemia Additional Family Medical History / Comment(s): CAD with triple bypass surgery Mother Family Medical History: Liver Disease Additional Family Medical History / Comment(s): Mother at age 46 from liver cirrhosis due to alcoholism General Exam Limitations: no limitations General appearance: alert, in no apparent distress Head exam: Present: atraumatic, normocephalic Eye exam: Present: normal appearance, EOMI ENT exam: Present: mucous membranes moist Neck exam: Present: other (Trachea is in midline) Respiratory exam: Present: normal lung sounds bilaterally. Absent: respiratory distress, wheezes, rales, rhonchi, stridor Cardiovascular Exam: Present: regular rate, normal rhythm, normal heart sounds, other (Normal radial pulses bilaterally) GI/Abdominal exam: Present: soft, other (Obese abdomen). Absent: tenderness, guarding Extremities exam: Absent: tenderness, pedal edema Back exam: Present: CVA tenderness (R). Absent: CVA tenderness (L) Neurological exam: Present: alert, oriented X3, other (Patient has no evidence of lower extremity neurological deficit or saddle anesthesia on examination). Absent: motor sensory deficit Psychiatric exam: Present: normal affect, normal mood Skin exam: Present: warm, dry, intact, normal color Course Vital Signs 08/05/20 08/05/20 08/05/20 16:05 17:07 18:00 Temperature 97.8 F Pulse Rate 70 63 Respiratory 20 18 18 Rate Blood Pressure 161/90 134/81 O2 Sat by Pulse 98 Oximetry - Reevaluation(s) Reevaluation #1: 08/05/20 19:40 Patient states that her pain and nausea have improved with ED treatment, and she denies development of any new symptoms while in the ED. Patient and fianc are aware of the patient's test results, and patient agrees with hospital admission at this time. 08/05/20 19:49 Case, H&P, test results and ED management thus far were discussed with Dr. Diamond (urology). He recommends admitting the patient to the medical service, and he states that he will see the patient in consultation. He asks to keep the patient NPO. He has no further recommendations at this time. 08/05/20 20:02 Case, H&P, test results, ED management thus far and my discussion with Dr. Diamond as above were discussed with Dr. Oconnor. He accepts hospital admission. He has no further recommendations at this time. Medical Decision Making - Medical Decision Making Given that the patient has an obstructing right ureteral stone, leukocytosis, an d an infectious appearance to her UA, will admit the patient to the hospital for IV antibiotics and urology consultation. Dr. Diamond (urology) has been notified. Dr. Oconnor has accepted hospital admission. Patient has been afebrile and hemodynamically stable while in the ED. - Lab Data Result diagrams: 08/05/20 17:08 08/05/20 17:08 Lab Results 08/05/20 08/05/20 08/05/20 Range/Units 17:08 17:08 17:16 WBC 19.7 H (3.8-10.6) k/uL RBC 4.75 (3.80-5.40) m/uL Hgb 14.7 (11.4-16.0) gm/dL Hct 43.2 (34.0-46.0) % MCV 91.0 (80.0-100.0) fL MCH 30.9 (25.0-35.0) pg MCHC 33.9 (31.0-37.0) g/dL RDW 12.3 (11.5-15.5) % Plt Count 383 (150-450) k/uL MPV 6.8 Neutrophils % 80 % Lymphocytes % 10 % Monocytes % 5 % Eosinophils % 4 % Basophils % 1 % Neutrophils # 15.7 H (1.3-7.7) k/uL Lymphocytes # 2.0 (1.0-4.8) k/uL Monocytes # 0.9 (0-1.0) k/uL Eosinophils # 0.8 H (0-0.7) k/uL Basophils # 0.1 (0-0.2) k/uL Sodium 137 (137-145) mmol/L Potassium 4.1 (3.5-5.1) mmol/L Chloride 104 (98-107) mmol/L Carbon Dioxide 23 (22-30) mmol/L Anion Gap 10 mmol/L BUN 21 H (7-17) mg/dL Creatinine 1.22 H (0.52-1.04) mg/dL Est GFR (CKD-EPI)AfAm 63 (>60 ml/min/1.73 sqM) Est GFR (CKD-EPI)NonAf 55 (>60 ml/min/1.73 sqM) Glucose 113 H (74-99) mg/dL Calcium 9.3 (8.4-10.2) mg/dL Total Bilirubin 0.2 (0.2-1.3) mg/dL AST 23 (14-36) U/L ALT 21 (4-34) U/L Alkaline Phosphatase 108 (38-126) U/L Total Protein 7.1 (6.3-8.2) g/dL Albumin 4.0 (3.5-5.0) g/dL Lipase 60 (23-300) U/L Urine Color Yellow Urine Appearance Cloudy H (Clear) Urine pH 5.5 (5.0-8.0) Ur Specific [place] 1.026 (1.001-1.035) Urine Protein Trace H (Negative) Urine Glucose (UA) Negative (Negative) Urine Ketones Negative (Negative) Urine Blood Large H (Negative) Urine Nitrite Positive H (Negative) Urine Bilirubin Negative (Negative) Urine Urobilinogen <2.0 (<2.0) mg/dL Ur Leukocyte Esterase Large H (Negative) Urine RBC 11 H (0-5) /hpf Urine WBC 179 H (0-5) /hpf Urine WBC Clumps Few H (None) /hpf Ur Squamous Epith Cells 20 H (0-4) /hpf Urine Bacteria Many H (None) /hpf Urine Mucus Few H (None) /hpf Urine HCG, Qual (Not Detectd) 08/05/20 Range/Units 17:16 WBC (3.8-10.6) k/uL RBC (3.80-5.40) m/uL Hgb (11.4-16.0) gm/dL Hct (34.0-46.0) % MCV (80.0-100.0) fL MCH (25.0-35.0) pg MCHC (31.0-37.0) g/dL RDW (11.5-15.5) % Plt Count (150-450) k/uL MPV Neutrophils % % Lymphocytes % % Monocytes % % Eosinophils % % Basophils % % Neutrophils # (1.3-7.7) k/uL Lymphocytes # (1.0-4.8) k/uL Monocytes # (0-1.0) k/uL Eosinophils # (0-0.7) k/uL Basophils # (0-0.2) k/uL Sodium (137-145) mmol/L Potassium (3.5-5.1) mmol/L Chloride (98-107) mmol/L Carbon Dioxide (22-30) mmol/L Anion Gap mmol/L BUN (7-17) mg/dL Creatinine (0.52-1.04) mg/dL Est GFR (CKD-EPI)AfAm (>60 ml/min/1.73 sqM) Est GFR (CKD-EPI)NonAf (>60 ml/min/1.73 sqM) Glucose (74-99) mg/dL Calcium (8.4-10.2) mg/dL Total Bilirubin (0.2-1.3) mg/dL AST (14-36) U/L ALT (4-34) U/L Alkaline Phosphatase (38-126) U/L Total Protein (6.3-8.2) g/dL Albumin (3.5-5.0) g/dL Lipase (23-300) U/L Urine Color Urine Appearance (Clear) Urine pH (5.0-8.0) Ur Specific [place] (1.001-1.035) Urine Protein (Negative) Urine Glucose (UA) (Negative) Urine Ketones (Negative) Urine Blood (Negative) Urine Nitrite (Negative) Urine Bilirubin (Negative) Urine Urobilinogen (<2.0) mg/dL Ur Leukocyte Esterase (Negative) Urine RBC (0-5) /hpf Urine WBC (0-5) /hpf Urine WBC Clumps (None) /hpf Ur Squamous Epith Cells (0-4) /hpf Urine Bacteria (None) /hpf Urine Mucus (None) /hpf Urine HCG, Qual Not Detected (Not Detectd) - Radiology Data Radiology results: report reviewed (CT abdomen/pelvis without contrast: 5 mm obstructing right UPJ calculus with mild to moderate hydronephrosis, additional nonobstructing right renal calculus) Disposition Clinical Impression: Ureterolithiasis, UTI (urinary tract infection) Disposition: ADMITTED IP TO THIS [facility] Condition: Stable Is patient prescribed a controlled substance at d/c from ED?: No Time of Disposition: 20:03
[2020-08-05] MEDS ORDERED: HYDROmorphone 0.5 MG/0.5 ML SYRINGE IVP STA (16:28)
[2020-08-05] MEDS ORDERED: ONDANSETRON 4 MG/2 ML VIAL IVP STA ×2 (16:28→18:49)
[2020-08-05] MEDS ORDERED: SODIUM CHLORIDE 0.9% 1,000 ML IV STA (16:28)
[2020-08-05 17:21] LABS: Basophils # (A) 0.1 k/uL (0-0.2); Basophils % (A) 1 %; Eosinophils # (A) 0.8 k/uL (0-0.7); Eosinophils % (A) 4 %; HCT 43.2 % (34.0-46.0); HGB 14.7 gm/dL (11.4-16.0); Lymphocytes % (A) 10 %; MCH 30.9 pg (25.0-35.0); MCHC 33.9 g/dL (31.0-37.0); Mean Platelet Volume 6.8; Monocytes # (A) 0.9 k/uL (0-1.0); Monocytes % (A) 5 %; Neutrophils # (A) 15.7 k/uL (1.3-7.7); Neutrophils % (A) 80 %; Platelet Count 383 k/uL (150-450); RBC 4.75 m/uL (3.80-5.40); RDW 12.3 % (11.5-15.5); WBC 19.7 k/uL (3.8-10.6)
[2020-08-05 17:32] LABS: Calcium 9.3 mg/dL (8.4-10.2); Potassium 4.1 mmol/L (3.5-5.1); Total Bilirubin 0.2 mg/dL (0.2-1.3); Total Protein 7.1 g/dL (6.3-8.2)
[2020-08-05 17:53] LABS: Appearance,Urine Cloudy (Clear); Bacteria,Urine Many /hpf; Bilirubin,Urine Negative (Negative); Blood,Urine Large (Negative); Color,Urine Yellow; Glucose,Urine (UA) Negative (Negative); Ketones,Urine Negative (Negative); Leukocyte Esterase,Urine Large (Negative); Mucus,Urine Few /hpf; Nitrite,Urine Positive (Negative); PH, Urine 5.5 (5.0-8.0); Protein,Urine Trace (Negative); RBC,Urine 11 /hpf (0-5); Specific Gravity,Urine 1.026 (1.001-1.035); Squamous Epithelial Cell,Urine 20 /hpf (0-4); Urobilinogen,Urine <2.0 mg/dL (<2.0); WBC,Urine 179 /hpf (0-5)
--- NOTE | 2020-08-05 18:18 | CT ---
EXAMINATION TYPE: CT abdomen pelvis wo con DATE OF EXAM: 08/05/2020 COMPARISON: None available. HISTORY: Right flank pain. CT DLP: 1726 mGycm Automated exposure control for dose reduction was used. TECHNIQUE: Helical acquisition of images was performed from the lung bases through the pelvis. FINDINGS: LUNG BASES: No significant abnormality is appreciated. LIVER/GB: No significant abnormality is appreciated. Cholecystectomy. PANCREAS: No significant abnormality is seen. SPLEEN: No significant abnormality is seen. ADRENALS: No significant abnormality is seen. KIDNEYS: 5 mm obstructing calculus at the right ureteropelvic junction with mild to moderate hydronep hrosis. Additional 2 mm nonobstructing right renal calculus in lower pole. No left renal hydronephros is or nephrolithiasis. FREE AIR: No free air is visualized RETROPERITONEAL ADENOPATHY: None visualized REPRODUCTIVE ORGANS: No significant abnormality is seen URINARY BLADDER: Partially decompressed, limiting evaluation. PELVIC ADENOPATHY: None visualized. OSSEOUS STRUCTURES: No significant abnormality is seen. BOWEL: Small fat-containing periumbilical hernia. Otherwise no significant abnormality is seen. OTHER: None IMPRESSION: 5 MM OBSTRUCTING RIGHT UPJ CALCULUS WITH MILD TO MODERATE HYDRONEPHROSIS. ADDITIONAL NONOBSTRUCTING RIGHT RENAL CALCULUS.
[2020-08-05] MEDS ORDERED: ACET/COD 300 MG/30 MG STARTER PACK 6 TAB BTL PO STA (18:37)
[2020-08-05] MEDS ORDERED: HYDROmorphone 1 MG/ML 1 ML SYRINGE IVP STA (18:48)
[2020-08-05] MEDS ORDERED: LEVOFLOXACIN 750MG-D5W PMX 750 MG in DEXTROSE/WATER 1 150ML.BAG IVPB STA (19:43)
[2020-08-05] MEDS ORDERED: NALOXONE 0.4 MG/ML 1 ML VIAL IV PRN (19:51)
[2020-08-05] MEDS: SODIUM CHLORIDE 0.9% 1,000 ML IV SCH (20:45)
[2020-08-05] MEDS: HYDROmorphone 0.5 MG/0.5 ML SYRINGE IVP PRN (22:01)
[2020-08-06] MEDS: HYDROmorphone 0.5 MG/0.5 ML SYRINGE IVP PRN ×4 (01:12→22:22)
[2020-08-06] MEDS: SODIUM CHLORIDE 0.9% 1,000 ML IV SCH ×2 (03:55→21:54)
[2020-08-06 06:39] LABS: Basophils # (A) 0.1 k/uL (0-0.2); Basophils % (A) 0 %; Eosinophils # (A) 0.2 k/uL (0-0.7); Eosinophils % (A) 1 %; HCT 40.3 % (34.0-46.0); HGB 13.7 gm/dL (11.4-16.0); Lymphocytes # (A) 0.9 k/uL (1.0-4.8); Lymphocytes % (A) 3 %; MCH 31.3 pg (25.0-35.0); MCV 92.2 fL (80.0-100.0); Mean Platelet Volume 6.7; Monocytes # (A) 1.6 k/uL (0-1.0); Monocytes % (A) 5 %; Neutrophils # (A) 27.8 k/uL (1.3-7.7); Neutrophils % (A) 90 %; Platelet Count 302 k/uL (150-450); RBC 4.37 m/uL (3.80-5.40); RDW 12.5 % (11.5-15.5); WBC 30.8 k/uL (3.8-10.6)
[2020-08-06] MEDS ORDERED: ACETAMINOPHEN IV (For NPO) 1,000 MG in EMPTY BAG 1 BAG IVPB ONE (06:43)
[2020-08-06 06:47] LABS: Albumin 3.4 g/dL (3.5-5.0); Calcium 8.5 mg/dL (8.4-10.2); Potassium 4.4 mmol/L (3.5-5.1); Total Bilirubin 0.6 mg/dL (0.2-1.3); Total Protein 6.4 g/dL (6.3-8.2)
--- NOTE | 2020-08-06 08:14 | P.GSCN ---
History of Present Illness Consult date: 08/06/20 Reason for Consult: Right renal colic Requesting physician: Darby Oconnor History of present illness: The patient is a 40-year-old white female with a history of urolithiasis. She has previously undergone stent placement on 1 occasion. Yesterday afternoon, she experienced acute onset of right flank pain, associated with nausea and vomiting. She presented to the emergency room and was found to have evidence of a UTI. A computed tomography scan showed moderate right hydronephrosis due to a 5 mm right UPJ calculus. Review of Systems - Constitutional Denies chills, Denies fever - Gastrointestinal Reports nausea, Reports vomiting - Genitourinary Genitourinary: Reports flank pain, Reports kidney stones Past Medical History Past Medical History: Renal Disease Additional Past Medical History / Comment(s): Chronic back pain, insomnia, kidney stones History of Any Multi-Drug Resistant Organisms: None Reported Past Surgical History: Cholecystectomy, Tubal Ligation Past Anesthesia/Blood Transfusion Reactions: No Reported Reaction Past Psychological History: Anxiety, Bipolar, Depression, Panic Disorder, Schizophrenia Smoking Status: Current every day smoker Past Alcohol Use History: None Reported Past Drug Use History: None Reported - Past Family History Brother(s) History Unknown: Yes Father Family Medical History: Hyperlipidemia Additional Family Medical History / Comment(s): CAD with triple bypass surgery Mother Family Medical History: Liver Disease Additional Family Medical History / Comment(s): Mother at age 46 from liver cirrhosis due to alcoholism Medications and Allergies Home Medications Medication Instructions Recorded Confirmed Type Fluticasone/Vilanterol [Breo 1 puff INHALATION RT-DAILY PRN 01/12/18 08/05/20 History Ellipta 200-25 Mcg INH] Meloxicam [Mobic] 7.5 mg PO DAILY 01/12/18 08/05/20 History Omeprazole 20 mg PO HS 01/12/18 08/05/20 History Prochlorperazine [Compazine] 10 mg PO DAILY PRN 01/12/18 08/05/20 History atenoloL [Atenolol] 25 mg PO HS 01/12/18 08/05/20 History Loratadine [Claritin] 10 mg PO DAILY 05/31/18 08/05/20 History ARIPiprazole [Abilify] 5 mg PO HS 08/05/20 08/05/20 History Butalb/APAP/Caff 50-325-40Mg 1 tab PO Q4-6H PRN 08/05/20 08/05/20 History [Fioricet 50-325-40] FLUoxetine HCL [PROzac] 10 mg PO DAILY 08/05/20 08/05/20 History FLUoxetine HCL [PROzac] 20 mg PO DAILY 08/05/20 08/05/20 History Gabapentin [Neurontin] 300 mg PO TID 08/05/20 08/05/20 History QUEtiapine [SEROquel] 50 - 100 mg PO HS 08/05/20 08/05/20 History Varenicline [Chantix Starter Pack] See Taper PO DIRECTED 08/05/20 08/05/20 History traMADol HCL 50 - 100 mg PO TID PRN 08/05/20 08/05/20 History Allergies Allergy/AdvReac Type Severity Reaction Status Date / Time aripiprazole [From Abilify] Allergy Unknown Verified 08/05/20 20:11 asenapine [From Saphris] Allergy Unknown Verified 08/05/20 20:11 carbamazepine [From Tegretol] Allergy Unknown Verified 08/05/20 20:11 citalopram [From Celexa] Allergy Unknown Verified 08/05/20 20:11 clonazepam [From Klonopin] Allergy Unknown Verified 08/05/20 20:11 divalproex sodium Allergy Unknown Verified 08/05/20 20:11 [From Depakote] duloxetine HCl Allergy Rash/Hives Verified 08/05/20 20:11 [From Cymbalta] escitalopram [From Lexapro] Allergy Unknown Verified 08/05/20 20:11 fluoxetine [From Prozac] Allergy Unknown Verified 08/05/20 20:11 fluvoxamine [From Luvox] Allergy Unknown Verified 08/05/20 20:11 haloperidol [From Haldol] Allergy Unknown Verified 08/05/20 20:11 Iodine and Iodide Containing Allergy Rash/Hives Verified 08/05/20 20:11 Produc ketorolac [From Toradol] Allergy Unknown Verified 08/05/20 20:11 lamotrigine [From Lamictal] Allergy Unknown Verified 08/05/20 20:11 lithium Allergy Unknown Verified 08/05/20 20:11 loxapine [From Loxitane] Allergy Unknown Verified 08/05/20 20:11 lurasidone [From Latuda] Allergy Unknown Verified 08/05/20 20:11 meperidine [From Demerol] Allergy Unknown Verified 08/05/20 20:11 morphine Allergy Unknown Verified 08/05/20 20:11 olanzapine [From Zyprexa] Allergy Unknown Verified 08/05/20 20:11 paroxetine [From Paxil] Allergy Unknown Verified 08/05/20 20:11 paroxetine HCl [From Paxil] Allergy Rash/Hives Verified 08/05/20 20:11 Penicillins Allergy Rash/Hives Verified 08/05/20 20:11 potassium Allergy Unknown Verified 08/05/20 20:11 quetiapine [From Seroquel] Allergy Unknown Verified 08/05/20 20:11 risperidone [From Risperdal] Allergy Unknown Verified 08/05/20 20:11 sertraline [From Zoloft] Allergy Unknown Verified 08/05/20 20:11 ziprasidone [From Geodon] Allergy Unknown Verified 08/05/20 20:11 CONTROL PILLS Allergy Unknown Uncoded 08/05/20 20:11 steroids Allergy Unknown Uncoded 08/05/20 20:11 Surgical - Exam Vital Signs Temp Pulse Resp BP Pulse Ox 97.8 F 70 20 161/90 98 08/05/20 16:05 08/05/20 16:05 08/05/20 16:05 08/05/20 16:05 08/05/20 16:05 - General well developed, well nourished, no distress - Neck no masses, trachea midline - Respiratory normal respiratory effort - Abdomen Soft, non-tender, non-distended. Right CVA tenderness is noted. - Psychiatric oriented to time, oriented to person, oriented to place, speech is normal, memory intact Results - Labs 08/06/20 05:59 08/06/20 05:59 Abnormal Lab Results - Last 24 Hours (Table) 08/05/20 08/05/20 08/05/20 Range/Units 17:08 17:08 17:16 WBC 19.7 H (3.8-10.6) k/uL Neutrophils # 15.7 H (1.3-7.7) k/uL Lymphocytes # (1.0-4.8) k/uL Monocytes # (0-1.0) k/uL Eosinophils # 0.8 H (0-0.7) k/uL BUN 21 H (7-17) mg/dL Creatinine 1.22 H (0.52-1.04) mg/dL Glucose 113 H (74-99) mg/dL Albumin (3.5-5.0) g/dL Urine Appearance Cloudy H (Clear) Urine Protein Trace H (Negative) Urine Blood Large H (Negative) Urine Nitrite Positive H (Negative) Ur Leukocyte Esterase Large H (Negative) Urine RBC 11 H (0-5) /hpf Urine WBC 179 H (0-5) /hpf Urine WBC Clumps Few H (None) /hpf Ur Squamous Epith Cells 20 H (0-4) /hpf Urine Bacteria Many H (None) /hpf Urine Mucus Few H (None) /hpf 08/06/20 08/06/20 Range/Units 05:59 05:59 WBC 30.8 H (3.8-10.6) k/uL Neutrophils # 27.8 H (1.3-7.7) k/uL Lymphocytes # 0.9 L (1.0-4.8) k/uL Monocytes # 1.6 H (0-1.0) k/uL Eosinophils # (0-0.7) k/uL BUN 23 H (7-17) mg/dL Creatinine 1.24 H (0.52-1.04) mg/dL Glucose 114 H (74-99) mg/dL Albumin 3.4 L (3.5-5.0) g/dL Urine Appearance (Clear) Urine Protein (Negative) Urine Blood (Negative) Urine Nitrite (Negative) Ur Leukocyte Esterase (Negative) Urine RBC (0-5) /hpf Urine WBC (0-5) /hpf Urine WBC Clumps (None) /hpf Ur Squamous Epith Cells (0-4) /hpf Urine Bacteria (None) /hpf Urine Mucus (None) /hpf Microbiology - Last 24 Hours (Table) 08/05/20 17:16 Urine Culture - Preliminary Urine,Voided Diabetes panel 08/05/20 08/06/20 Range/Units 17:08 05:59 Sodium 137 137 (137-145) mmol/L Potassium 4.1 4.4 (3.5-5.1) mmol/L Chloride 104 105 (98-107) mmol/L Carbon Dioxide 23 24 (22-30) mmol/L BUN 21 H 23 H (7-17) mg/dL Creatinine 1.22 H 1.24 H (0.52-1.04) mg/dL Glucose 113 H 114 H (74-99) mg/dL Calcium 9.3 8.5 (8.4-10.2) mg/dL AST 23 25 (14-36) U/L ALT 21 19 (4-34) U/L Alkaline Phosphatase 108 77 (38-126) U/L Total Protein 7.1 6.4 (6.3-8.2) g/dL Albumin 4.0 3.4 L (3.5-5.0) g/dL Calcium panel 08/05/20 08/06/20 Range/Units 17:08 05:59 Calcium 9.3 8.5 (8.4-10.2) mg/dL Albumin 4.0 3.4 L (3.5-5.0) g/dL Pituitary panel 08/05/20 08/06/20 Range/Units 17:08 05:59 Sodium 137 137 (137-145) mmol/L Potassium 4.1 4.4 (3.5-5.1) mmol/L Chloride 104 105 (98-107) mmol/L Carbon Dioxide 23 24 (22-30) mmol/L BUN 21 H 23 H (7-17) mg/dL Creatinine 1.22 H 1.24 H (0.52-1.04) mg/dL Glucose 113 H 114 H (74-99) mg/dL Calcium 9.3 8.5 (8.4-10.2) mg/dL Adrenal panel 08/05/20 08/06/20 Range/Units 17:08 05:59 Sodium 137 137 (137-145) mmol/L Potassium 4.1 4.4 (3.5-5.1) mmol/L Chloride 104 105 (98-107) mmol/L Carbon Dioxide 23 24 (22-30) mmol/L BUN 21 H 23 H (7-17) mg/dL Creatinine 1.22 H 1.24 H (0.52-1.04) mg/dL Glucose 113 H 114 H (74-99) mg/dL Calcium 9.3 8.5 (8.4-10.2) mg/dL Total Bilirubin 0.2 0.6 (0.2-1.3) mg/dL AST 23 25 (14-36) U/L ALT 21 19 (4-34) U/L Alkaline Phosphatase 108 77 (38-126) U/L Total Protein 7.1 6.4 (6.3-8.2) g/dL Albumin 4.0 3.4 L (3.5-5.0) g/dL - Imaging CT scan - abdomen: report reviewed, image reviewed Assessment and Plan (1) Acute pyelonephritis Current Visit: Yes Status: Acute Code(s): N10 - ACUTE PYELONEPHRITIS SNOMED Code(s): 34720854 (2) Ureterolithiasis Current Visit: Yes Status: Acute Code(s): N20.1 - CALCULUS OF URETER SNOMED Code(s): 43664777 (3) Hydronephrosis with renal and ureteral calculous obstruction Current Visit: Yes Status: Acute Code(s): N13.2 - HYDRONEPHROSIS WITH RENAL AND URETERAL CALCULOUS OBSTRUCTION SNOMED Code(s): 857231941 Plan: The patient is being treated with IV antibiotics and hydration. She has acute right pyelonephritis complicated by a 5 mm right UPJ calculus. She will undergo cystoscopy with right ureteral stent placement. The rationale for this was reviewed in detail with the patient, along with potential risks which include anesthesia, bleeding, infection, inability to successfully place the stent, and ureteral injury. Placement of a stent should allow renal drainage and enhance resolution of the hydronephrosis. She would then be scheduled to undergo stent removal in 2-3 weeks, along with right ureteroscopy and laser lithotripsy to remove her right UPJ calculus and right renal calculi. Time with Patient: Greater than 30
[2020-08-06] MEDS ORDERED: DEXAMETHASONE SOD PHOSPHATE 4 MG/ML 1 ML VIAL IV ONE (08:21)
[2020-08-06] MEDS ORDERED: ONDANSETRON 4 MG/2 ML VIAL IVP ONE (08:21)
[2020-08-06] MEDS ORDERED: LIDOCAINE 1% INJ 10MG/ML (20 ML MDV) ONE (08:39)
[2020-08-06] MEDS ORDERED: PROPOFOL 10 MG/ML 20 ML VIAL IV ONE (08:39)
[2020-08-06] MEDS ORDERED: fentaNYL (PF) 50 MCG/ML 2 ML AMP ONE (08:39)
[2020-08-06] MEDS ORDERED: IV FLUID CONTINUATION 1,000 ML IV ONE (08:44)
--- NOTE | 2020-08-06 09:14 | P.OP ---
Date of Procedure: 08/06/20 Preoperative Diagnosis: Acute right pyelonephritis, right ureteral calculus Postoperative Diagnosis: Same Procedure(s) Performed: Cystoscopy, right ureteral stent insertion Anesthesia: DARCIA Surgeon: Bobby Diamond Estimated Blood Loss (ml): 0 IV fluids (ml): 100 Pathology: none sent Condition: stable Disposition: PACU Indications for Procedure: The patient is a 40-year-old white female with a history of urolithiasis. She has previously undergone stent placement on 1 occasion. Yesterday afternoon, she experienced acute onset of right flank pain, associated with nausea and vomiting. She presented to the emergency room and was found to have evidence of a UTI. A CT scan showed moderate right hydronephrosis due to a 5 mm right UPJ calculus. Operative Findings: Purulent urine drained from right renal pelvis. Description of Procedure: The patient was taken to the operating room and placed in the dorsolithotomy position, with legs supported in Javid stirrups. The external genitalia was prepped and draped sterilely. The 30 lens was used to introduce the 22-Swiss Stortz cystoscopic sheath through the urethra and into the bladder under direct vision. The bladder was examined in its entirety. Both ureteral orifices were of normal anatomic location and configuration. No tumors or foreign bodies were seen. An angle-tip 0.035 inch Glidewire was passed through the cystoscope. The right ureteral orifice was cannulated, and the Glidewire was slowly advanced up to the calculus. A passed beyond the calculus without difficulty and coiled within the right renal pelvis. Purulent urine drained alongside the Glidewire. A 24 cm, 6-Swiss double-J ureteral stent was placed over the wire. Proper stent positioning was verified fluoroscopically and endoscopically. With the beak of the cystoscope immediately adjacent to the right ureteral orifice, urine was collected and sent for culture and sensitivity. The bladder was emptied and the cystoscope removed. The patient tolerated the procedure well was taken to the recovery room in stable condition.
--- NOTE | 2020-08-06 09:35 | FL ---
EXAMINATION TYPE: FL guidance operating room DATE OF EXAM: 08/06/2020 CLINICAL HISTORY: Right-sided obstructing ureter stone. TECHNIQUE: Fluoroscopy. COMPARISON: CT abdomen and pelvis from yesterday FINDINGS: Fluoroscopic guidance was provided during right ureter stent insertion procedure performed by urologist. A total of estimated 10 seconds of fluoroscopic time was utilized during the procedur e and single spot image is acquired. Single image acquired shows portion of right double-J ureter apple nt. IMPRESSION: As Above.
[2020-08-06] MEDS: LACTATED RINGERS 1,000 ML IV SCH (11:47)
[2020-08-06] MEDS: ONDANSETRON 4 MG/2 ML VIAL IVP PRN (11:49)
--- NOTE | 2020-08-06 17:35 | P.HPIM ---
History of Present Illness 40-year-old female came in with the severe right flank pain, found to have a 5 mm right UPJ calculus. Patient was evaluated by neurology patient had a ureteral stent. Patient denied any dysuria nausea vomiting patient does have le ukocytosis doesn't have any fever patient urinalysis is significant for infected stone or urinary tract infection. Patient is presently on Rocephin discontinued levofloxacin patient ALLERGIC to penicillin is only rash. Review of Systems REVIEW OF SYSTEMS: CONSTITUTIONAL: No fever, no malaise, no fatigue. HEENT: No recent visual problems or hearing problems. Denied any sore throat. CARDIOVASCULAR: No chest pain, orthopnea, PND, no palpitations, no syncope. PULMONARY: No shortness of breath, no cough, no hemoptysis. GASTROINTESTINAL: Patient did have nausea vomiting as well NEUROLOGICAL: No headaches, no weakness, no numbness. HEMATOLOGICAL: Denies any bleeding or petechiae. GENITOURINARY: Denies any burning micturition, frequency, or urgency. MUSCULOSKELETAL/RHEUMATOLOGICAL: Denies any joint pain, swelling, or any muscle pain. ENDOCRINE: Denies any polyuria or polydipsia. The rest of the 14-point review of systems is negative. Past Medical History Past Medical History: Renal Disease Additional Past Medical History / Comment(s): Chronic back pain, insomnia, kidney stones History of Any Multi-Drug Resistant Organisms: None Reported Past Surgical History: Cholecystectomy, Tubal Ligation Past Anesthesia/Blood Transfusion Reactions: No Reported Reaction Past Psychological History: Anxiety, Bipolar, Depression, Panic Disorder, Schizophrenia Smoking Status: Current every day smoker Past Alcohol Use History: None Reported Past Drug Use History: None Reported - Past Family History Brother(s) History Unknown: Yes Father Family Medical History: Hyperlipidemia Additional Family Medical History / Comment(s): CAD with triple bypass surgery Mother Family Medical History: Liver Disease Additional Family Medical History / Comment(s): Mother at age 46 from liver cirrhosis due to alcoholism Medications and Allergies Home Medications Medication Instructions Recorded Confirmed Type Fluticasone/Vilanterol [Breo 1 puff INHALATION RT-DAILY PRN 01/12/18 08/05/20 History Ellipta 200-25 Mcg INH] Meloxicam [Mobic] 7.5 mg PO DAILY 01/12/18 08/05/20 History Omeprazole 20 mg PO HS 01/12/18 08/05/20 History Prochlorperazine [Compazine] 10 mg PO DAILY PRN 01/12/18 08/05/20 History atenoloL [Atenolol] 25 mg PO HS 01/12/18 08/05/20 History Loratadine [Claritin] 10 mg PO DAILY 05/31/18 08/05/20 History ARIPiprazole [Abilify] 5 mg PO HS 08/05/20 08/05/20 History Butalb/APAP/Caff 50-325-40Mg 1 tab PO Q4-6H PRN 08/05/20 08/05/20 History [Fioricet 50-325-40] FLUoxetine HCL [PROzac] 10 mg PO DAILY 08/05/20 08/05/20 History FLUoxetine HCL [PROzac] 20 mg PO DAILY 08/05/20 08/05/20 History Gabapentin [Neurontin] 300 mg PO TID 08/05/20 08/05/20 History QUEtiapine [SEROquel] 50 - 100 mg PO HS 08/05/20 08/05/20 History Varenicline [Chantix Starter Pack] See Taper PO DIRECTED 08/05/20 08/05/20 History traMADol HCL 50 - 100 mg PO TID PRN 08/05/20 08/05/20 History Allergies Allergy/AdvReac Type Severity Reaction Status Date / Time aripiprazole [From Abilify] Allergy Unknown Verified 08/05/20 20:11 asenapine [From Saphris] Allergy Unknown Verified 08/05/20 20:11 carbamazepine [From Tegretol] Allergy Unknown Verified 08/05/20 20:11 citalopram [From Celexa] Allergy Unknown Verified 08/05/20 20:11 clonazepam [From Klonopin] Allergy Unknown Verified 08/05/20 20:11 divalproex sodium Allergy Unknown Verified 08/05/20 20:11 [From Depakote] duloxetine HCl Allergy Rash/Hives Verified 08/05/20 20:11 [From Cymbalta] escitalopram [From Lexapro] Allergy Unknown Verified 08/05/20 20:11 fluoxetine [From Prozac] Allergy Unknown Verified 08/05/20 20:11 fluvoxamine [From Luvox] Allergy Unknown Verified 08/05/20 20:11 haloperidol [From Haldol] Allergy Unknown Verified 08/05/20 20:11 Iodine and Iodide Containing Allergy Rash/Hives Verified 08/05/20 20:11 Produc ketorolac [From Toradol] Allergy Unknown Verified 08/05/20 20:11 lamotrigine [From Lamictal] Allergy Unknown Verified 08/05/20 20:11 lithium Allergy Unknown Verified 08/05/20 20:11 loxapine [From Loxitane] Allergy Unknown Verified 08/05/20 20:11 lurasidone [From Latuda] Allergy Unknown Verified 08/05/20 20:11 meperidine [From Demerol] Allergy Unknown Verified 08/05/20 20:11 morphine Allergy Unknown Verified 08/05/20 20:11 olanzapine [From Zyprexa] Allergy Unknown Verified 08/05/20 20:11 paroxetine [From Paxil] Allergy Unknown Verified 08/05/20 20:11 paroxetine HCl [From Paxil] Allergy Rash/Hives Verified 08/05/20 20:11 Penicillins Allergy Rash/Hives Verified 08/05/20 20:11 potassium Allergy Unknown Verified 08/05/20 20:11 quetiapine [From Seroquel] Allergy Unknown Verified 08/05/20 20:11 risperidone [From Risperdal] Allergy Unknown Verified 08/05/20 20:11 sertraline [From Zoloft] Allergy Unknown Verified 08/05/20 20:11 ziprasidone [From Geodon] Allergy Unknown Verified 08/05/20 20:11 CONTROL PILLS Allergy Unknown Uncoded 08/05/20 20:11 steroids Allergy Unknown Uncoded 08/05/20 20:11 Physical Exam Vitals: Vital Signs Temp Pulse Pulse Pulse Pulse Resp BP 08/06/20 14:30 98.1 F 101 H 18 08/06/20 10:44 98.0 F 90 18 08/06/20 10:15 98.1 F 88 18 08/06/20 09:45 88 16 08/06/20 09:31 97 16 08/06/20 09:16 98.3 F 92 16 08/06/20 08:00 98.4 F 97 16 08/06/20 07:55 98.4 F 103 H 16 08/06/20 02:00 98.1 F 80 16 08/05/20 21:20 98.0 F 85 20 130/86 08/05/20 20:14 84 18 127/97 08/05/20 19:52 98 F 82 18 08/05/20 18:00 63 18 134/81 BP Pulse Ox 08/06/20 14:30 103/72 98 08/06/20 10:44 99/69 98 08/06/20 10:15 114/83 99 08/06/20 09:45 102/63 99 08/06/20 09:31 91/69 97 08/06/20 09:16 109/59 92 L 08/06/20 08:00 108/77 97 08/06/20 07:55 108/77 97 08/06/20 02:00 122/68 94 L 08/05/20 21:20 97 08/05/20 20:14 95 08/05/20 19:52 127/67 93 L 08/05/20 18:00 Intake and Output 08/06/20 08/06/20 08/06/20 06:59 14:59 22:59 Intake Total 225 600 Output Total 200 600 800 Balance -200 -375 -200 Intake: IV 225 Oral 600 Output: Urine 200 600 800 Estimated Blood Loss 0 Other: Voiding Method Toilet Toilet # Voids 2 1 PHYSICAL EXAMINATION: GENERAL: The patient is alert and oriented x3, not in any acute distress. Well developed, well nourished. HEENT: Pupils are round and equally reacting to light. EOMI. No scleral icterus. No conjunctival pallor. Normocephalic, atraumatic. No pharyngeal erythema. No thyromegaly. CARDIOVASCULAR: S1 and S2 present. No murmurs, rubs, or gallops. PULMONARY: Chest is clear to auscultation, no wheezing or crackles. ABDOMEN: Soft, and still has right CVA tenderness, nondistended, normoactive bowel sounds. No palpable organomegaly. MUSCULOSKELETAL: No joint swelling or deformity. EXTREMITIES: No cyanosis, clubbing, or pedal edema. NEUROLOGICAL: Gross neurological examination did not reveal any focal deficits. SKIN: No rashes. Results CBC & Chem 7: 08/06/20 05:59 08/06/20 05:59 Labs: Abnormal Lab Results - Last 24 Hours (Table) 08/05/20 08/05/20 08/06/20 Range/Units 17:08 17:16 05:59 WBC 30.8 H (3.8-10.6) k/uL Neutrophils # 27.8 H (1.3-7.7) k/uL Lymphocytes # 0.9 L (1.0-4.8) k/uL Monocytes # 1.6 H (0-1.0) k/uL BUN 21 H (7-17) mg/dL Creatinine 1.22 H (0.52-1.04) mg/dL Glucose 113 H (74-99) mg/dL Albumin (3.5-5.0) g/dL Urine Appearance Cloudy H (Clear) Urine Protein Trace H (Negative) Urine Blood Large H (Negative) Urine Nitrite Positive H (Negative) Ur Leukocyte Esterase Large H (Negative) Urine RBC 11 H (0-5) /hpf Urine WBC 179 H (0-5) /hpf Urine WBC Clumps Few H (None) /hpf Ur Squamous Epith Cells 20 H (0-4) /hpf Urine Bacteria Many H (None) /hpf Urine Mucus Few H (None) /hpf 08/06/20 Range/Units 05:59 WBC (3.8-10.6) k/uL Neutrophils # (1.3-7.7) k/uL Lymphocytes # (1.0-4.8) k/uL Monocytes # (0-1.0) k/uL BUN 23 H (7-17) mg/dL Creatinine 1.24 H (0.52-1.04) mg/dL Glucose 114 H (74-99) mg/dL Albumin 3.4 L (3.5-5.0) g/dL Urine Appearance (Clear) Urine Protein (Negative) Urine Blood (Negative) Urine Nitrite (Negative) Ur Leukocyte Esterase (Negative) Urine RBC (0-5) /hpf Urine WBC (0-5) /hpf Urine WBC Clumps (None) /hpf Ur Squamous Epith Cells (0-4) /hpf Urine Bacteria (None) /hpf Urine Mucus (None) /hpf Microbiology - Last 24 Hours (Table) 08/06/20 10:10 Urine Culture - Preliminary Urine,Ureter 08/05/20 17:16 Urine Culture - Preliminary Urine,Voided Thrombosis Risk Factor Assmnt - Choose All That Apply Each Factor Represents 1 point: Age 41-60 years, Minor surgery planned, Obesity (BMI >25) Thrombosis Risk Factor Assessment Total Risk Factor Score: 3 Thrombosis Risk Factor Assessment Level: Moderate Risk Assessment and Plan Plan: -Right-sided nephrolithiasis: Patient is status post ureteral stent placement. -Urinary tract infection with acute pyelonephritis: Rocephin as mentioned above urine cultures were ordered -Hydronephrosis secondary to renal calculi -Mild acute renal failure possibly combined prerenal azotemia as well as obstructive nephropathy. Patient will be continued on IV fluids Chronic low back pain -Bipolar disorder Heparin nicotine use: Counseling was provided -DVT prophylaxis subcutaneous heparin
[2020-08-06] MEDS: ACETAMINOPHEN TAB 325 MG TAB PO PRN (17:41)
[2020-08-06] MEDS ORDERED: LEVOFLOXACIN 750MG-D5W PMX 750 MG in DEXTROSE/WATER 1 150ML.BAG IVPB SCH (19:00)
[2020-08-06] MEDS ORDERED: BUTALB/APAP/CAFF 50-325-40MG TAB PO PRN (22:04)
[2020-08-06] MEDS ORDERED: PROCHLORPERAZINE 10 MG TAB PO PRN (22:04)
[2020-08-06] MEDS: traMADol 50 MG TAB PO PRN (22:32)
[2020-08-06] MEDS: PANTOPRAZOLE 40 MG TABLET PO SCH (22:33)
[2020-08-06] MEDS: atenoloL 25 MG TAB PO SCH (22:33)
[2020-08-06] MEDS: FLUoxetine HCL 20 MG CAP PO SCH (22:33)
[2020-08-06] MEDS: ARIPiprazole 5 MG TAB PO SCH (22:33)
[2020-08-06] MEDS: FLUoxetine HCL 10 MG CAP PO SCH (22:33)
[2020-08-06] MEDS: GABAPENTIN 300 MG CAP PO SCH (22:33)
[2020-08-06] MEDS: QUEtiapine 50 MG TAB PO SCH (22:33)
[2020-08-06] MEDS: LORATADINE 10 MG TAB PO SCH (22:35)
[2020-08-06] MEDS: NICOTINE 14MG/24HR PATCH TRANSDERM SCH (22:36)
[2020-08-07] MEDS: HEPARIN SODIUM,PORCINE/PF 5,000 UNIT/0.5 ML SYRINGE SQ SCH ×4 (00:04→23:58)
[2020-08-07] MEDS: ONDANSETRON 4 MG/2 ML VIAL IVP PRN (00:12)
[2020-08-07] MEDS: ACETAMINOPHEN TAB 325 MG TAB PO PRN ×2 (00:12→13:18)
[2020-08-07] MEDS: HYDROmorphone 0.5 MG/0.5 ML SYRINGE IVP PRN ×2 (01:50→20:47)
[2020-08-07] MEDS ORDERED: IBUPROFEN 600 MG TAB PO STA (02:42)
[2020-08-07] MEDS: SODIUM CHLORIDE 0.9% 1,000 ML IV SCH ×3 (02:52→20:57)
[2020-08-07] MEDS ORDERED: HYDROmorphone 0.5 MG/0.5 ML SYRINGE IVP PRN (07:00)
[2020-08-07 07:17] LABS: HCT 36.4 % (34.0-46.0); HGB 12.5 gm/dL (11.4-16.0); MCH 31.7 pg (25.0-35.0); MCHC 34.4 g/dL (31.0-37.0); MCV 92.1 fL (80.0-100.0); Platelet Count 238 k/uL (150-450); RBC 3.96 m/uL (3.80-5.40); RDW 12.4 % (11.5-15.5); WBC 14.3 k/uL (3.8-10.6)
[2020-08-07 07:34] LABS: African American GFR (CKD) >90 (>60 ml/min/1.73 sqM); Anion Gap 5 mmol/L; Blood Urea Nitrogen 13 mg/dL (7-17); Calcium 8.3 mg/dL (8.4-10.2); Carbon Dioxide 25 mmol/L (22-30); Chloride 109 mmol/L (98-107); Glucose 107 mg/dL (74-99); Non-African American GFR(CKD) 82 (>60 ml/min/1.73 sqM); Potassium 3.7 mmol/L (3.5-5.1); Sodium 139 mmol/L (137-145)
[2020-08-07] MEDS: SYMBICORT 160-4.5 MCG INHALER INHALATION PRN ×2 (08:37→21:10)
--- NOTE | 2020-08-07 09:06 | P.PN ---
Subjective Progress Note Date: 08/07/20 40 yo female with placement of a stent by Dr Diamond for pyonephrosis on the right. SHe had a uti ith sepsis, obstrucint stone on the right, 5mm. SHe feels better. SHe is afebrile Her pain is gone SHe has been instructed to f/u in our office to set up stone and stent removal Objective - Vital Signs Vital signs: Vital Signs Temp 98.3 F 08/07/20 08:24 Pulse 99 08/07/20 08:24 Resp 16 08/07/20 08:24 BP 105/73 08/07/20 08:24 Pulse Ox 98 08/07/20 08:24 Intake & Output 08/06/20 08/07/20 08/07/20 18:59 06:59 18:59 Intake Total 825 Output Total 1400 1700 Balance -575 -1700 Intake: IV 225 Oral 600 Output: Urine 1400 1700 Estimated Blood Loss 0 Other: Voiding Method Toilet Toilet # Voids 1 - Labs CBC & Chem 7: 08/07/20 06:51 08/07/20 06:51 Labs: Abnormal Lab Results - Last 24 Hours (Table) 08/07/20 08/07/20 Range/Units 06:51 06:51 WBC 14.3 H (3.8-10.6) k/uL Chloride 109 H (98-107) mmol/L Glucose 107 H (74-99) mg/dL Calcium 8.3 L (8.4-10.2) mg/dL Microbiology - Last 24 Hours (Table) 08/05/20 17:16 Urine Culture - Preliminary Urine,Voided Gram Neg Bacilli 08/06/20 10:10 Urine Culture - Preliminary Urine,Ureter
[2020-08-07] MEDS: NICOTINE 14MG/24HR PATCH TRANSDERM SCH (10:07)
[2020-08-07] MEDS: GABAPENTIN 300 MG CAP PO SCH ×3 (10:07→20:48)
--- NOTE | 2020-08-07 10:44 | CDI ---
Documentation Clarification Form Date: 08/07/2020 10:13:31 AM From: Jackelin Faustin RN CCDS Admit Date: 08/05/2020 07:52:00 PM Patient Name: Gabby Layton Visit Number: [id number] Discharge Date: ATTENTION: The Clinical Documentation Specialists (CDI) and [facility] Coding Staff appreciate your assistance in clarifying documentation. Please respond to the clarification below the line at the bottom and electronically sign. The CDI & [facility] Coding staff will review the response and follow-up if needed. Please note: Queries are made part of the Legal Health Record. If you have any questions, please contact the author of this message via ITS. Dr. Arian Chicas The patient presented with the following clinical indicators. Additional clarification regarding the etiology/cause of the clinical indicators is requested. History/Risk Factors: 40-year-old female presents to the ED for severe right flank pain. Medical History: Renal disease, Kidney stones and chronic back pains. Clinical Indicators: She had a UTI with sepsis, obstruction stone on the right, 5mm. Urology progress note 08/07 WBC 08/05: 19.7 Urine cultures 08/05: Gram Neg Bacilli Vitals signs 08/05: B/P 161/90; HR 70; Temp 97.8 F Oral; RR 20; SpO2 98% ra Treatment: Antibiotics: 08/05 Levaquin IVPB x1; 08/06 Ceftriaxone 2gm IVPB Q24HR IV Bolus: 08/05 0.9ns 1L bolus In your professional opinion, please clarify if these findings signify one of the following conditions: [ ] Sepsis POA [ ] Sepsis, Not POA [ ] Sepsis ruled out [ ] Other, please specify [ ] Unable to determine SIRS Criteria: 2 or more of the following may indicate SIRS -Temperature < 96.8F (36C) or > 101.0F (38.3C) -Heart Rate > 90 bpm -Respiratory Rate > 20 breaths/min or PaCO2 < 32 mmHg -White Blood Cell Count > 12,000 or < 4,000 cells/mm3 or > 10% bands (Template Last Reviewed: April 2020) Matt IQBAL
[2020-08-07] MEDS: LACTATED RINGERS 1,000 ML IV SCH (10:51)
--- NOTE | 2020-08-07 11:44 | P.PN ---
Subjective Progress Note Date: 08/07/20 40-year-old female came in with the severe right flank pain, found to have a 5 mm right UPJ calculus. Patient was evaluated by neurology patient had a ureteral stent. Patient denied any dysuria nausea vomiting patient does have leukocytosis doesn't have any fever patient urinalysis is significant for infected stone or urinary tract infection. Patient is presently on Rocephin discontinued levofloxacin patient ALLERGIC to penicillin is only rash. 08/07/2020 Patient is seen in follow-up today and continues to have some minimal right flank pain although states is better today. Patient was febrile throughout the night having some episodes of sinus tach that improved with Motrin and patient is afebrile this morning. Preliminary cultures of urine showing gram-negative bacilli and awaiting for culture finalization to determine discharge antibiotics. Patient was seen and evaluated by urology today and will follow-up outpatient for stone and stent removal. Review of systems: Constitutional: No reports of fatigue, reported fevers throughout last night and afebrile this morning Cardiovascular: No reports of chest pain or palpitations Respiratory: No reports of shortness of breath or cough GI: No reports of nausea, vomiting, or diarrhea : No reports of dysuria or retention Neurovascular: No reports of weakness or numbness All medications have been reviewed Objective - Vital Signs Vital signs: Vital Signs Temp 98.3 F 08/07/20 08:24 Pulse 99 08/07/20 08:24 Resp 16 08/07/20 08:24 BP 105/73 08/07/20 08:24 Pulse Ox 98 08/07/20 08:24 Intake & Output 08/06/20 08/07/20 08/07/20 18:59 06:59 18:59 Intake Total 825 Output Total 1400 1700 125 Balance -575 -1700 -125 Intake: IV 225 Oral 600 Output: Urine 1400 1700 125 Estimated Blood Loss 0 Other: Voiding Method Toilet Toilet Toilet # Voids 1 # Bowel Movements 1 - Exam GENERAL: The patient is alert and oriented x3, not in any acute distress. Well developed, well nourished. HEENT: Pupils are round and equally reacting to light. EOMI. No scleral icterus. No conjunctival pallor. Normocephalic, atraumatic. No pharyngeal erythema. No thyromegaly. CARDIOVASCULAR: S1 and S2 present. No murmurs, rubs, or gallops. PULMONARY: Chest is clear to auscultation, no wheezing or crackles. ABDOMEN: Soft, and still has minimal right CVA tenderness on palpation, nondistended, normoactive bowel sounds. No palpable organomegaly. MUSCULOSKELETAL: No joint swelling or deformity. EXTREMITIES: No cyanosis, clubbing, or pedal edema. NEUROLOGICAL: Gross neurological examination did not reveal any focal deficits. SKIN: No rashes. - Labs CBC & Chem 7: 08/07/20 06:51 08/07/20 06:51 Labs: Abnormal Lab Results - Last 24 Hours (Table) 08/07/20 08/07/20 Range/Units 06:51 06:51 WBC 14.3 H (3.8-10.6) k/uL Chloride 109 H (98-107) mmol/L Glucose 107 H (74-99) mg/dL Calcium 8.3 L (8.4-10.2) mg/dL Microbiology - Last 24 Hours (Table) 08/06/20 08:31 Blood Culture - Preliminary Blood No Growth after 24 hours 08/05/20 17:16 Urine Culture - Preliminary Urine,Voided Gram Neg Bacilli 08/06/20 10:10 Urine Culture - Preliminary Urine,Ureter Assessment and Plan Assessment: -Right-sided nephrolithiasis: Patient is status post ureteral stent placement. Urology evaluated the patient recommending outpatient follow-up for stone and stent removal and continue with IV antibiotics. -Urinary tract infection with acute pyelonephritis: Patient is continued on IV Rocephin while awaiting for urine cultures to finalize with preliminary showing gram-negative bacilli -Hydronephrosis secondary to renal calculi -Mild acute renal failure possibly combined prerenal azotemia as well as obstructive nephropathy. Patient will be continued on IV fluids -Chronic low back pain -Bipolar disorder -Continued nicotine use: Counseling was provided -DVT prophylaxis subcutaneous heparin Plan: Continue with IV antibiotics and awaiting for urine cultures to finalize with p reliminary showing gram-negative bacilli. Patient is maintained on IV ceftriaxone and will continue. Urology evaluated the patient recommending outpatient stone and stent removal in the next 1-2 weeks.
[2020-08-07] MEDS: traMADol 50 MG TAB PO PRN (15:43)
[2020-08-07 20:21] VITALS: RESP 16
[2020-08-07] MEDS: QUEtiapine 50 MG TAB PO SCH (20:48)
[2020-08-07] MEDS: atenoloL 25 MG TAB PO SCH (20:48)
[2020-08-07] MEDS: ARIPiprazole 5 MG TAB PO SCH (20:49)
[2020-08-07] MEDS: PANTOPRAZOLE 40 MG TABLET PO SCH (20:56)
[2020-08-08] MEDS: FLUoxetine HCL 20 MG CAP PO SCH (01:52)
[2020-08-08] MEDS: LORATADINE 10 MG TAB PO SCH (01:52)
[2020-08-08] MEDS: FLUoxetine HCL 10 MG CAP PO SCH (01:52)
[2020-08-08] MEDS: HYDROmorphone 0.5 MG/0.5 ML SYRINGE IVP PRN ×2 (02:04→07:57)
[2020-08-08 05:08] VITALS: BP 128/71; PULSE 97; TEMP 99.9
[2020-08-08] MEDS: SODIUM CHLORIDE 0.9% 1,000 ML IV SCH (05:13)
--- NOTE | 2020-08-08 07:46 | P.PN ---
Subjective Progress Note Date: 08/08/20 The opatient is in the hospital with a uti and right obstructing stone. Dr Diamond placed a stent. From a gu standpoint she can go home SHe should see Dr Diamond in a week to set up a rt ureteroscopy and stone/stent removal Objective - Vital Signs Vital signs: Vital Signs Temp 99.9 F H 08/08/20 05:00 Pulse 97 08/08/20 05:00 Resp 16 08/08/20 05:00 BP 128/71 08/08/20 05:00 Pulse Ox 93 L 08/08/20 05:00 Intake & Output 08/07/20 08/08/20 08/08/20 18:59 06:59 18:59 Intake Total 1500 1500 Output Total 125 Balance 1375 1500 Intake: Intake, IV Titration 1500 1500 Amount Sodium Chloride 0.9% 1, 1500 1500 000 ml @ 125 mls/hr IV . Q8H ANA Rx#:[id number] Output: Urine 125 Other: Voiding Method Toilet Toilet # Voids 2 4 # Bowel Movements 1 - Labs CBC & Chem 7: 08/07/20 06:51 08/07/20 06:51 Labs: Microbiology - Last 24 Hours (Table) 08/05/20 17:16 Urine Culture - Final Urine,Voided Escherichia coli 08/06/20 10:10 Urine Culture - Final Urine,Ureter 08/06/20 08:31 Blood Culture - Preliminary Blood No Growth after 24 hours
[2020-08-08] MEDS: HEPARIN SODIUM,PORCINE/PF 5,000 UNIT/0.5 ML SYRINGE SQ SCH ×2 (07:58→08:02)
[2020-08-08] MEDS: GABAPENTIN 300 MG CAP PO SCH (07:58)
[2020-08-08] MEDS: NICOTINE 14MG/24HR PATCH TRANSDERM SCH ×2 (07:59→08:02)
[2020-08-08] MEDS ORDERED: FLUoxetine HCL 20 MG CAP PO SCH (09:00)
[2020-08-08] MEDS ORDERED: FLUoxetine HCL 10 MG CAP PO SCH (09:00)
[2020-08-08] MEDS ORDERED: LORATADINE 10 MG TAB PO SCH (09:00)
[2020-08-08] MEDS: LACTATED RINGERS 1,000 ML IV SCH (09:31)
[2020-08-08 09:54] LABS: Basophils % (A) 1 %; Eosinophils # (A) 0.3 k/uL (0-0.7); Eosinophils % (A) 4 %; HCT 34.8 % (34.0-46.0); HGB 11.8 gm/dL (11.4-16.0); Lymphocytes # (A) 1.2 k/uL (1.0-4.8); Lymphocytes % (A) 17 %; MCH 31.2 pg (25.0-35.0); MCV 91.9 fL (80.0-100.0); Mean Platelet Volume 7.3; Monocytes # (A) 0.5 k/uL (0-1.0); Monocytes % (A) 8 %; Neutrophils # (A) 4.9 k/uL (1.3-7.7); Neutrophils % (A) 68 %; Platelet Count 230 k/uL (150-450); RBC 3.79 m/uL (3.80-5.40); RDW 12.5 % (11.5-15.5); WBC 7.1 k/uL (3.8-10.6)
[2020-08-08 09:59] LABS: African American GFR (CKD) >90 (>60 ml/min/1.73 sqM); Anion Gap 7 mmol/L; Blood Urea Nitrogen 7 mg/dL (7-17); Calcium 8.6 mg/dL (8.4-10.2); Carbon Dioxide 25 mmol/L (22-30); Chloride 108 mmol/L (98-107); Glucose 99 mg/dL (74-99); Non-African American GFR(CKD) >90 (>60 ml/min/1.73 sqM); Potassium 3.4 mmol/L (3.5-5.1); Sodium 140 mmol/L (137-145)
[2020-08-08] MEDS ORDERED: POTASSIUM CHLORIDE ER 20 MEQ TAB.ER PO STA (11:33)
--- NOTE | 2020-08-10 09:24 | P.DS ---
Providers Date of admission: 08/05/20 19:52 Expected date of discharge: 08/08/20 Attending physician: Darby Oconnor Consults: 08/05/20 19:52 Consult Physician Urgent Consulting Provider: Bobby Diamond Consult Reason/Comments: Ureterolithiasis, UTI Do you want consulting provider notified?: Already Contacted Primary care physician: Mike Kent [facility] Course: Final diagnosis -Right-sided nephrolithiasis: Patient is status post ureteral stent placement -Urinary tract infection with acute pyelonephritis with cultures growing E. coli -Hydronephrosis secondary to renal calculi -Mild acute renal failure possibly combined prerenal azotemia as well as obstructive nephropathy -Chronic low back pain -Bipolar disorder -Continued nicotine use: Counseling was provided -DVT prophylaxis Discharge disposition Patient is being discharged in a stable condition with guarded prognosis to home . Patient will follow-up with Dr. Jackelin Kent in the outpatient setting upon discharge. Patient is to follow up with urology Dr. Diamond in one week. She will continue with oral Ceftin 500 mg twice daily for the next 7 days and then may discontinue. Total time taken is greater than 35 minutes. Hospital course 40-year-old female came in with the severe right flank pain, found to have a 5 mm right UPJ calculus. Patient was evaluated by neurology patient had a ureter al stent. Patient denied any dysuria nausea vomiting patient does have leukocytosis doesn't have any fever patient urinalysis is significant for infected stone or urinary tract infection. Patient is presently on Rocephin discontinued levofloxacin patient ALLERGIC to penicillin is only rash. 08/07/2020 Patient is seen in follow-up today and continues to have some minimal right flank pain although states is better today. Patient was febrile throughout the night having some episodes of sinus tach that improved with Motrin and patient is afebrile this morning. Preliminary cultures of urine showing gram-negative bacilli and awaiting for culture finalization to determine discharge antibiotics. Patient was seen and evaluated by urology today and will follow-up outpatient for stone and stent removal. 08/08/2020 Patient is feeling better and will be discharged home today and instructed to keep appointment with Dr. Diamond urology for next week as scheduled for stone removal. Patient will continue with oral Ceftin 500 mg twice daily for the next 7 days to complete the course. Urine cultures finalized showing E. coli. Urology also instructed and encouraged fluids and rest along with monitoring for fevers and treat with Tylenol. Patient is asking to go home today. Currently no reports of chest pain, shortness of breath, or palpitations. Patient is afebrile. No reports of nausea or vomiting and patient is tolerating diet. Patient will be discharged home today. On exam vital signs are stable. Cardio S1, S2 are muffled. Respiratory system shows diminished breath sounds at the bases with no wheezing or rhonchi noted. Abdomen is soft and nontender. Nervous system shows no focal deficits. Please refer to medication reconciliation sheet for a list of medications. Patient Condition at Discharge: Stable Plan - Discharge Summary New Discharge Prescriptions: New Acetaminophen Tab [Tylenol] 650 mg PO Q6HR PRN #30 tab PRN Reason: Fever And/ Or Pain Cefuroxime Axetil [Ceftin] 500 mg PO BID 7 Days #14 tab Continue Meloxicam [Mobic] 7.5 mg PO DAILY atenoloL [Atenolol] 25 mg PO HS Prochlorperazine [Compazine] 10 mg PO DAILY PRN PRN Reason: Nausea/Anxiety Fluticasone/Vilanterol [Breo Ellipta 200-25 Mcg INH] 1 puff INHALATION RT- DAILY PRN PRN Reason: Shortness Of Breath Omeprazole 20 mg PO HS Loratadine [Claritin] 10 mg PO DAILY Gabapentin [Neurontin] 300 mg PO TID FLUoxetine HCL [PROzac] 20 mg PO DAILY FLUoxetine HCL [PROzac] 10 mg PO DAILY traMADol HCL 50 - 100 mg PO TID PRN PRN Reason: Pain QUEtiapine [SEROquel] 50 - 100 mg PO HS Varenicline [Chantix Starter Pack] See Taper PO DIRECTED Butalb/APAP/Caff 50-325-40Mg [Fioricet 50-325-40] 1 tab PO Q4-6H PRN PRN Reason: Migraine Headache ARIPiprazole [Abilify] 5 mg PO HS Discharge Medication List Fluticasone/Vilanterol [Breo Ellipta 200-25 Mcg INH] 1 puff INHALATION RT-DAILY PRN 01/12/18 [History] Meloxicam [Mobic] 7.5 mg PO DAILY 01/12/18 [History] Omeprazole 20 mg PO HS 01/12/18 [History] Prochlorperazine [Compazine] 10 mg PO DAILY PRN 01/12/18 [History] atenoloL [Atenolol] 25 mg PO HS 01/12/18 [History] Loratadine [Claritin] 10 mg PO DAILY 05/31/18 [History] ARIPiprazole [Abilify] 5 mg PO HS 08/05/20 [History] Butalb/APAP/Caff 50-325-40Mg [Fioricet 50-325-40] 1 tab PO Q4-6H PRN 08/05/20 [History] FLUoxetine HCL [PROzac] 10 mg PO DAILY 08/05/20 [History] FLUoxetine HCL [PROzac] 20 mg PO DAILY 08/05/20 [History] Gabapentin [Neurontin] 300 mg PO TID 08/05/20 [History] QUEtiapine [SEROquel] 50 - 100 mg PO HS 08/05/20 [History] Varenicline [Chantix Starter Pack] See Taper PO DIRECTED 08/05/20 [History] traMADol HCL 50 - 100 mg PO TID PRN 08/05/20 [History] Acetaminophen Tab [Tylenol] 650 mg PO Q6HR PRN #30 tab 08/08/20 [Rx] Cefuroxime Axetil [Ceftin] 500 mg PO BID 7 Days #14 tab 08/08/20 [Rx] Follow up Appointment(s)/Referral(s): Bobby Diamond MD [STAFF PHYSICIAN] - 1 Week (The office will call you with an appointment time and date.) Mike Kent DO [Primary Care Provider] - 08/09/20 3:00 pm Activity/Diet/Wound Care/Special Instructions: Activity Limited until follow-up Follow-up with primary care provider upon discharge Follow-up with urology in 1 week Continue with antibiotics for the full week until finished Encourage fluids Monitor fevers and treat with Tylenol Continue current diet Discharge Disposition: HOME SELF-CARE
== END 2020-08-08 12:36 | disposition home or self-care (01) | DRG 854 ==
LOC: EC 15:59 → 6PED 19:52 → 5NMEDONC 08-07 11:31
PROVIDERS: ADMIT Hospitalist; ATTEND Hospitalist
PROC: 0T768DZ Dilation of Right Ureter with Intraluminal Device, Via Natural or Artificial Opening Endoscopic (ICD-10-PCS; principal; 2020-08-06 08:09)
DX: A41.51 Sepsis due to Escherichia coli [E. coli] (principal); N13.6 Pyonephrosis; N17.9 Acute kidney failure, unspecified; F20.9 Schizophrenia, unspecified; F31.9 Bipolar disorder, unspecified; Z20.822 Contact with and (suspected) exposure to COVID-19; G89.29 Other chronic pain; F41.0 Panic disorder [episodic paroxysmal anxiety]; G47.00 Insomnia, unspecified; F17.200 Nicotine dependence, unspecified, uncomplicated; Z71.6 Tobacco abuse counseling; Z79.1 Long term (current) use of non-steroidal anti-inflammatories (NSAID); Z79.899 Other long term (current) drug therapy; Z87.442 Personal history of urinary calculi; Z90.49 Acquired absence of other specified parts of digestive tract; Z87.19 Personal history of other diseases of the digestive system; Z98.51 Tubal ligation status; Z98.890 Other specified postprocedural states; Z88.5 Allergy status to narcotic agent; Z88.0 Allergy status to penicillin; Z88.8 Allergy status to other drugs, medicaments and biological substances; Z91.041 Radiographic dye allergy status; Z83.49 Family history of other endocrine, nutritional and metabolic diseases; Z82.49 Family history of ischemic heart disease and other diseases of the circulatory system; Z81.1 Family history of alcohol abuse and dependence; Z83.79 Family history of other diseases of the digestive system
CPT/HCPCS: 36415; 74176; 80048; 80053; 81001; 81025; 83605; 83690; 85025; 85027; 87040; 87077; 87086; 87186; 87635; 88108; 94640; 96361; 96374; 96375; 96376; 99285

== ENCOUNTER 2020-08-17 06:02 | Day surgery (SDC) | payer MEDICARE, OTHER ==
--- NOTE | 2020-08-10 21:51 | P.GSHP ---
History of Present Illness H&P Date: 08/10/20 Chief Complaint: Right flank pain The patient is a 40-year-old white female with a history of urolithiasis. She was hospitalized in late July after developing acute onset of right flank pain, associated with nausea and vomiting. She presented to the emergency room and was found to have evidence of a UTI. A CT scan showed moderate right hydronephrosis due to a 5 mm right UPJ calculus. She underwent right ureteral stent insertion. Urine culture showed pansensitive E. coli, for which she is being treated with antibiotics. - Constitutional Constitutional: Denies chills, Denies fever - Gastrointestinal Gastrointestinal: Reports nausea, Reports vomiting - Genitourinary (Female) Genitourinary: Reports flank pain, Reports kidney stones Past Medical History Past Medical History: Renal Disease Additional Past Medical History / Comment(s): Chronic back pain, insomnia, kidney stones History of Any Multi-Drug Resistant Organisms: None Reported Past Surgical History: Cholecystectomy, Tubal Ligation Past Anesthesia/Blood Transfusion Reactions: No Reported Reaction Past Psychological History: Anxiety, Bipolar, Depression, Panic Disorder, Schizophrenia Smoking Status: Current every day smoker Past Alcohol Use History: None Reported Past Drug Use History: None Reported - Past Family History Brother(s) History Unknown: Yes Father Family Medical History: Hyperlipidemia Additional Family Medical History / Comment(s): CAD with triple bypass surgery Mother Family Medical History: Liver Disease Additional Family Medical History / Comment(s): Mother at age 46 from liver cirrhosis due to alcoholism Medications and Allergies Home Medications Medication Instructions Recorded Confirmed Type Fluticasone/Vilanterol [Breo 1 puff INHALATION RT-DAILY PRN 01/12/18 08/05/20 History Ellipta 200-25 Mcg INH] Meloxicam [Mobic] 7.5 mg PO DAILY 01/12/18 08/05/20 History Omeprazole 20 mg PO HS 01/12/18 08/05/20 History Prochlorperazine [Compazine] 10 mg PO DAILY PRN 01/12/18 08/05/20 History atenoloL [Atenolol] 25 mg PO HS 01/12/18 08/05/20 History Loratadine [Claritin] 10 mg PO DAILY 05/31/18 08/05/20 History ARIPiprazole [Abilify] 5 mg PO HS 08/05/20 08/05/20 History Butalb/APAP/Caff 50-325-40Mg 1 tab PO Q4-6H PRN 08/05/20 08/05/20 History [Fioricet 50-325-40] FLUoxetine HCL [PROzac] 10 mg PO DAILY 08/05/20 08/05/20 History FLUoxetine HCL [PROzac] 20 mg PO DAILY 08/05/20 08/05/20 History Gabapentin [Neurontin] 300 mg PO TID 08/05/20 08/05/20 History QUEtiapine [SEROquel] 50 - 100 mg PO HS 08/05/20 08/05/20 History Varenicline [Chantix Starter Pack] See Taper PO DIRECTED 08/05/20 08/05/20 History traMADol HCL 50 - 100 mg PO TID PRN 08/05/20 08/05/20 History Acetaminophen Tab [Tylenol] 650 mg PO Q6HR PRN #30 tab 08/08/20 Rx Cefuroxime Axetil [Ceftin] 500 mg PO BID 7 Days #14 tab 08/08/20 Rx Allergies Allergy/AdvReac Type Severity Reaction Status Date / Time aripiprazole [From Abilify] Allergy Unknown Verified 08/05/20 20:11 asenapine [From Saphris] Allergy Unknown Verified 08/05/20 20:11 carbamazepine [From Tegretol] Allergy Unknown Verified 08/05/20 20:11 citalopram [From Celexa] Allergy Unknown Verified 08/05/20 20:11 clonazepam [From Klonopin] Allergy Unknown Verified 08/05/20 20:11 divalproex sodium Allergy Unknown Verified 08/05/20 20:11 [From Depakote] duloxetine HCl Allergy Rash/Hives Verified 08/05/20 20:11 [From Cymbalta] escitalopram [From Lexapro] Allergy Unknown Verified 08/05/20 20:11 fluoxetine [From Prozac] Allergy Unknown Verified 08/05/20 20:11 fluvoxamine [From Luvox] Allergy Unknown Verified 08/05/20 20:11 haloperidol [From Haldol] Allergy Unknown Verified 08/05/20 20:11 Iodine and Iodide Containing Allergy Rash/Hives Verified 08/05/20 20:11 Produc ketorolac [From Toradol] Allergy Unknown Verified 08/05/20 20:11 lamotrigine [From Lamictal] Allergy Unknown Verified 08/05/20 20:11 lithium Allergy Unknown Verified 08/05/20 20:11 loxapine [From Loxitane] Allergy Unknown Verified 08/05/20 20:11 lurasidone [From Latuda] Allergy Unknown Verified 08/05/20 20:11 meperidine [From Demerol] Allergy Unknown Verified 08/05/20 20:11 morphine Allergy Unknown Verified 08/05/20 20:11 olanzapine [From Zyprexa] Allergy Unknown Verified 08/05/20 20:11 paroxetine [From Paxil] Allergy Unknown Verified 08/05/20 20:11 paroxetine HCl [From Paxil] Allergy Rash/Hives Verified 08/05/20 20:11 Penicillins Allergy Rash/Hives Verified 08/05/20 20:11 potassium Allergy Unknown Verified 08/05/20 20:11 quetiapine [From Seroquel] Allergy Unknown Verified 08/05/20 20:11 risperidone [From Risperdal] Allergy Unknown Verified 08/05/20 20:11 sertraline [From Zoloft] Allergy Unknown Verified 08/05/20 20:11 ziprasidone [From Geodon] Allergy Unknown Verified 08/05/20 20:11 CONTROL PILLS Allergy Unknown Uncoded 08/05/20 20:11 steroids Allergy Unknown Uncoded 08/05/20 20:11 Surgical - Exam - General well developed, well nourished, no distress - Neck no masses, trachea midline - Respiratory normal respiratory effort - Abdomen Abdomen: soft, non tender, no guarding, no rigid, no rebound - Psychiatric oriented to time, oriented to person, oriented to place, speech is normal, memory intact Results - Imaging CT scan - abdomen: report reviewed, image reviewed Assessment and Plan (1) Ureterolithiasis Status: Acute Code(s): N20.1 - CALCULUS OF URETER SNOMED Code(s): 45578969 Plan: Cystoscopy, right ureteral stent removal, right ureteroscopy with Holmium laser lithotripsy. The procedure has been reviewed in detail with the patient. She is aware of potential risks, which include anesthesia, bleeding, infection, and ureteral injury.
[2020-08-15 09:33] VITALS: BMI 44.2
[~2020-08-17 06:02] MED LIST: ceFAZolin 3 GM in SODIUM CHLORIDE 0.9% 100 ML IVPB PRN
[2020-08-17] MEDS ORDERED: ONDANSETRON 4 MG/2 ML VIAL ONE (06:11)
[2020-08-17 06:37] VITALS: RESP 16
[2020-08-17] MEDS ORDERED: LIDOCAINE 1% (10MG/ML) FOR IV START INTRADERMA ONE (06:43)
[2020-08-17] MEDS ORDERED: LACTATED RINGERS 1,000 ML IV ONE (06:43)
[2020-08-17] MEDS ORDERED: atenoloL 25 MG TAB PO STA (06:54)
[2020-08-17] MEDS ORDERED: atenoloL 25 MG TAB PO ONE (07:05)
[2020-08-17] MEDS ORDERED: MIDAZOLAM 2 MG/2 ML VIAL ONE (07:29)
[2020-08-17] MEDS ORDERED: PROPOFOL 10 MG/ML 20 ML VIAL IV ONE (07:29)
[2020-08-17] MEDS ORDERED: SUCCINYLCHOLINE CHLORIDE 100 MG/5 ML SYR IV ONE (07:29)
[2020-08-17] MEDS ORDERED: fentaNYL (PF) 50 MCG/ML 2 ML AMP ONE (07:29)
[2020-08-17] MEDS ORDERED: LIDOCAINE 1% INJ 10MG/ML (20 ML MDV) ONE (07:29)
--- NOTE | 2020-08-17 07:38 | XR ---
EXAMINATION TYPE: XR KUB DATE OF EXAM: 08/17/2020 6:18 AM CLINICAL HISTORY: Right-sided kidney stone TECHNIQUE: Single supine KUB image of the abdomen is obtained. COMPARISON: None. FINDINGS: There is a right ureteral stent. There is a proximal right ureteral calculus measuring 7 mm . Probable bilateral renal calculi. Stool and gas scattered visualization of the renal contours. Mult iple presumed calcified pelvic phleboliths. Cholecystectomy clips. IMPRESSION: 1. Bilateral renal calculi. Right ureteral stent with 7 mm proximal right ureteral calculus. Multiple presumed pelvic phleboliths are calcified.
[2020-08-17 09:03] VITALS: TEMP 97.7
--- NOTE | 2020-08-17 09:16 | P.OP ---
Date of Procedure: 08/17/20 Preoperative Diagnosis: Right ureteral calculus Postoperative Diagnosis: Same Procedure(s) Performed: Cystoscopy, right ureteral stent removal, right ureteroscopy with Holmium laser lithotripsy Anesthesia: DARIA Surgeon: Bobby Diamond Estimated Blood Loss (ml): 0 IV fluids (ml): 700 Pathology: none sent Condition: stable Disposition: PACU Indications for Procedure: The patient is a 40-year-old white female with a history of urolithiasis. She was hospitalized in late July after developing acute onset of right flank pain, associated with nausea and vomiting. She presented to the emergency room and was found to have evidence of a UTI. A CT scan showed moderate right hydronephrosis due to a 5 mm right UPJ calculus. She underwent right ureteral stent insertion. Urine culture showed pansensitive E. coli, for which she is being treated with antibiotics. Operative Findings: Right proximal ureteral calculus, fragmented completely. Description of Procedure: The patient was taken to the operating room and placed in the dorsolithotomy position, with legs supported in Javid stirrups. The external genitalia was prepped and draped sterilely. The 30 lens was used to introduce the 21-[place] Reagan cystoscopic sheath through the urethra and into the bladder under direct vision. Grasping forceps were used to grasp the distal end of the right ureteral stent, which was removed along with the cystoscope. The mini flexible ureteroscope was advanced into the bladder, and the right ureteral orifice was cannulated. The ureteroscope was slowly advanced under direct vision, up to the right proximal ureteral calculus. The 272 micron Holmium laser probe was passed through the ureteroscope, and lithotripsy was performed using a dusting mode. Eventually, a portion of the calculus refluxed into the kidney. The ureteroscope was advanced, and fragmentation of the calculus was completed. Each calyx was examined, and any calculi encountered were fragmented (at this time, it was somewhat difficult to determine whether there were renal calculi or fragments of the ureteral calculus). The procedure was completed after there were no residual calculus fragments exceeding 1 mm in size. The ureteroscope was slowly withdrawn under direct vision. No ureteral abnormalities were seen. The patient tolerated the procedure well and was taken to the recovery room in stable condition. [facility] [place] Report: Procedure Acuity: Elective Stone Size and Location: 7 mm, right proximal ureter Ureteral Dilation: No Ureteral Accss Sheath Used: No Stone Sent for Analysis: No All Stones Were Removed with a Basket: No Complictions: None Preoperative Antibiotics Given: Yes Stent Paced: No Discharge Medictions: None
[2020-08-17 09:52] VITALS: BP 138/90; PULSE 68
[2020-08-17] MEDS ORDERED: IBUPROFEN 200 MG TAB PO ONE (09:57)
--- NOTE | 2020-08-17 11:18 | FL ---
EXAMINATION TYPE: FL guidance operating room DATE OF EXAM: 08/17/2020 HISTORY: Fluoroscopy time Less than 60 seconds of fluoroscopy provided. IMPRESSION: 1. Fluoroscopy time.
== END 2020-08-17 10:27 | disposition home or self-care (01) ==
LOC: OR 06:02
PROVIDERS: ATTEND Urology
DX: N20.1 Calculus of ureter (principal); G89.29 Other chronic pain; M54.9 Dorsalgia, unspecified; G47.00 Insomnia, unspecified; I10 Essential (primary) hypertension; Z87.442 Personal history of urinary calculi; Z90.49 Acquired absence of other specified parts of digestive tract; Z98.51 Tubal ligation status; F41.9 Anxiety disorder, unspecified; F31.9 Bipolar disorder, unspecified; F41.0 Panic disorder [episodic paroxysmal anxiety]; F20.9 Schizophrenia, unspecified; F17.210 Nicotine dependence, cigarettes, uncomplicated; Z97.2 Presence of dental prosthetic device (complete) (partial); Z83.438 Family history of other disorder of lipoprotein metabolism and other lipidemia; Z82.49 Family history of ischemic heart disease and other diseases of the circulatory system; Z83.79 Family history of other diseases of the digestive system; Z81.1 Family history of alcohol abuse and dependence; Z79.1 Long term (current) use of non-steroidal anti-inflammatories (NSAID); Z79.899 Other long term (current) drug therapy; Z86.19 Personal history of other infectious and parasitic diseases; Z88.6 Allergy status to analgesic agent; Z88.5 Allergy status to narcotic agent; Z88.0 Allergy status to penicillin; Z88.8 Allergy status to other drugs, medicaments and biological substances; Z91.048 Other nonmedicinal substance allergy status
CPT/HCPCS: 52353; 81025; 84132; 74018; J2250; J0690; J2405; J2001; J3010; J0330; J2704

== ENCOUNTER 2020-10-26 19:54 | Emergency (ER) | payer MEDICARE, OTHER ==
[2020-10-26 19:58] VITALS: TEMP 98.2
--- NOTE | 2020-10-26 20:12 | ED ---
General Adult HPI - General Chief complaint: Chest Pain Stated complaint: Chest pain Time Seen by Provider: 10/26/20 20:00 Source: patient Mode of arrival: ambulatory Limitations: no limitations - History of Present Illness Initial comments: Dictation was produced using [employer] dictation software. please excuse any grammatical, word or spelling errors. Chief Complaint: 40-year-old female presents emergency department for pleuritic chest pain History of Present Illness: 40-year-old female she denies any past medical history. She states that for the last several hours she's been having sharp chest pain to the left anterior chest per she states that it's worse with deep inspiration, laying down and moving. Patient has any strange recent activity. Denies any numbness and paresthesias to the arms or legs. No history of heart attack. No history of PE or DVT. Denies any fevers. No cough, no shortness of breath The ROS documented in this emergency department record has been reviewed and confirmed by me. Those systems with pertinent positive or negative responses have been documented in the HPI. All other systems are other negative and/or noncontributory. PHYSICAL EXAM: General Impression: Alert and oriented x3, not in acute distress HEENT: Normocephalic atraumatic, extra-ocular movements intact, pupils equal and reactive to light bilaterally, mucous membranes moist. Cardiovascular: Heart regular rate and rhythm Chest: Able to complete full sentences, no retractions, no tachypnea, clear to auscultation bilaterally Abdomen: abdomen soft, non-tender, non-distended, no organomegaly Musculoskeletal: Pulses present and equal in all extremities, no peripheral edema Motor: no focal deficits noted Neurological: CN II-XII grossly intact, no focal motor or sensory deficits noted Skin: Intact with no visualized rashes Psych: Normal affect and mood ED course: 40-year-old female presents to the emergency department for atypical chest pain. Is upon arrival are within acceptable limits. EKG shows no signs of ischemia or infarction. No findings to suggest pericarditis. Laboratory evaluation obtained. CBC unremarkable. D-dimer is elevated 0.82. Metabolic panel is negative. Troponins negative. Urine hCG is negative. Chest x-ray is nonacute. Given elevated d-dimer CT angios the chest was obtained sh owing no evidence of PE. Patient observed in emergency department for approximately 2 hours and 50 minutes. She is reevaluated at 10:42 PM found to be stable medical condition. Patient is agreeable for discharge. Clinical presentation secondary to pleurisy. Patient was to follow-up with primary care doctor. EKG interpretation: Ventricular rate 66, normal sinus rhythm,. Interval 152, QRS 102, QTc 444. No AL prolongation, no QTC prolongation, no ST or T-wave changes noted. Overall, this EKG is unremarkable - Related Data Home Medications Medication Instructions Recorded Confirmed Fluticasone/Vilanterol [Breo 1 puff INHALATION RT-DAILY PRN 01/12/18 08/17/20 Ellipta 200-25 Mcg INH] Meloxicam [Mobic] 7.5 mg PO DAILY 01/12/18 08/17/20 Omeprazole 20 mg PO HS 01/12/18 08/17/20 Prochlorperazine [Compazine] 10 mg PO DAILY PRN 01/12/18 08/17/20 atenoloL 25 mg PO HS 01/12/18 08/17/20 Loratadine [Claritin] 10 mg PO DAILY 05/31/18 08/17/20 ARIPiprazole [Abilify] 5 mg PO HS 08/05/20 08/17/20 Butalb/APAP/Caff 50-325-40Mg 1 tab PO Q4-6H PRN 08/05/20 08/17/20 [Fioricet 50-325-40] FLUoxetine HCL [PROzac] 10 mg PO DAILY 08/05/20 08/17/20 FLUoxetine HCL [PROzac] 20 mg PO DAILY 08/05/20 08/17/20 Gabapentin [Neurontin] 300 mg PO TID 08/05/20 08/17/20 QUEtiapine [SEROquel] 50 - 100 mg PO HS 08/05/20 08/17/20 Varenicline [Chantix Starter Pack] See Taper PO DIRECTED 08/05/20 08/17/20 traMADol HCL 50 - 100 mg PO TID PRN 08/05/20 08/17/20 Previous Rx's Medication Instructions Recorded Acetaminophen Tab [Tylenol] 650 mg PO Q6HR PRN #30 tab 08/08/20 Cefuroxime Axetil [Ceftin] 500 mg PO BID 7 Days #14 tab 08/08/20 Allergies Allergy/AdvReac Type Severity Reaction Status Date / Time asenapine [From Saphris] Allergy Unknown Verified 10/26/20 19:58 carbamazepine [From Tegretol] Allergy Unknown Verified 10/26/20 19:58 citalopram [From Celexa] Allergy Unknown Verified 10/26/20 19:58 clonazepam [From Klonopin] Allergy Unknown Verified 10/26/20 19:58 divalproex sodium Allergy Unknown Verified 10/26/20 19:58 [From Depakote] duloxetine HCl Allergy Rash/Hives Verified 10/26/20 19:58 [From Cymbalta] escitalopram [From Lexapro] Allergy Unknown Verified 10/26/20 19:58 fluvoxamine [From Luvox] Allergy Unknown Verified 10/26/20 19:58 haloperidol [From Haldol] Allergy Unknown Verified 10/26/20 19:58 Iodine and Iodide Containing Allergy Rash/Hives Verified 10/26/20 19:58 Produc ketorolac [From Toradol] Allergy Unknown Verified 10/26/20 19:58 lamotrigine [From Lamictal] Allergy Unknown Verified 10/26/20 19:58 lithium Allergy Unknown Verified 10/26/20 19:58 loxapine [From Loxitane] Allergy Unknown Verified 10/26/20 19:58 lurasidone [From Latuda] Allergy Unknown Verified 10/26/20 19:58 meperidine [From Demerol] Allergy Unknown Verified 10/26/20 19:58 morphine Allergy Unknown Verified 10/26/20 19:58 olanzapine [From Zyprexa] Allergy Unknown Verified 10/26/20 19:58 paroxetine [From Paxil] Allergy Unknown Verified 10/26/20 19:58 paroxetine HCl [From Paxil] Allergy Rash/Hives Verified 10/26/20 19:58 Penicillins Allergy Rash/Hives Verified 10/26/20 19:58 potassium Allergy Unknown Verified 10/26/20 19:58 quetiapine [From Seroquel] Allergy Unknown Verified 10/26/20 19:58 risperidone [From Risperdal] Allergy Unknown Verified 10/26/20 19:58 sertraline [From Zoloft] Allergy Unknown Verified 10/26/20 19:58 ziprasidone [From Geodon] Allergy Unknown Verified 10/26/20 19:58 CONTROL PILLS Allergy Unknown Uncoded 08/17/20 06:39 steroids Allergy Unknown Uncoded 08/17/20 06:39 Review of Systems ROS Statement: Those systems with pertinent positive or pertinent negative responses have been documented in the HPI. ROS Other: All systems not noted in ROS Statement are negative. Past Medical History Past Medical History: Hypertension, Osteoarthritis (OA) Additional Past Medical History / Comment(s): Chronic back pain, insomnia, kidney stones, MIGRAINE HEADACHE History of Any Multi-Drug Resistant Organisms: None Reported Past Surgical History: Cholecystectomy, Tubal Ligation Past Anesthesia/Blood Transfusion Reactions: No Reported Reaction Past Psychological History: Anxiety, Bipolar, Depression, Panic Disorder, Schizophrenia Smoking Status: Current every day smoker Past Alcohol Use History: None Reported Past Drug Use History: None Reported - Past Family History Brother(s) History Unknown: Yes Father Family Medical History: Hyperlipidemia Additional Family Medical History / Comment(s): CAD with triple bypass surgery Mother Family Medical History: Liver Disease Additional Family Medical History / Comment(s): Mother at age 46 from liver cirrhosis due to alcoholism General Exam Limitations: no limitations Course Vital Signs 10/26/20 10/26/20 10/26/20 19:56 21:00 22:40 Temperature 98.2 F Pulse Rate 78 73 85 Respiratory 18 19 20 Rate Blood Pressure 127/82 108/68 107/65 O2 Sat by Pulse 99 97 99 Oximetry Medical Decision Making - Lab Data Result diagrams: 10/26/20 20:15 10/26/20 20:15 Lab Results 10/26/20 10/26/20 10/26/20 Range/Units 20:15 20:15 20:15 WBC 10.8 H (3.8-10.6) k/uL RBC 4.61 (3.80-5.40) m/uL Hgb 14.3 (11.4-16.0) gm/dL Hct 41.6 (34.0-46.0) % MCV 90.3 (80.0-100.0) fL MCH 30.9 (25.0-35.0) pg MCHC 34.3 (31.0-37.0) g/dL RDW 13.2 (11.5-15.5) % Plt Count 332 (150-450) k/uL MPV 6.8 Neutrophils % 58 % Lymphocytes % 27 % Monocytes % 6 % Eosinophils % 5 % Basophils % 1 % Neutrophils # 6.3 (1.3-7.7) k/uL Lymphocytes # 2.9 (1.0-4.8) k/uL Monocytes # 0.7 (0-1.0) k/uL Eosinophils # 0.5 (0-0.7) k/uL Basophils # 0.1 (0-0.2) k/uL D-Dimer 0.82 H (<0.60) mg/L FEU Sodium 136 L (137-145) mmol/L Potassium 3.6 (3.5-5.1) mmol/L Chloride 105 (98-107) mmol/L Carbon Dioxide 25 (22-30) mmol/L Anion Gap 6 mmol/L BUN 13 (7-17) mg/dL Creatinine 0.76 (0.52-1.04) mg/dL Est GFR (CKD-EPI)AfAm >90 (>60 ml/min/1.73 sqM) Est GFR (CKD-EPI)NonAf >90 (>60 ml/min/1.73 sqM) Glucose 95 (74-99) mg/dL Calcium 8.7 (8.4-10.2) mg/dL Troponin I (0.000-0.034) ng/mL Urine HCG, Qual (Not Detectd) 10/26/20 10/26/20 Range/Units 20:15 20:15 WBC (3.8-10.6) k/uL RBC (3.80-5.40) m/uL Hgb (11.4-16.0) gm/dL Hct (34.0-46.0) % MCV (80.0-100.0) fL MCH (25.0-35.0) pg MCHC (31.0-37.0) g/dL RDW (11.5-15.5) % Plt Count (150-450) k/uL MPV Neutrophils % % Lymphocytes % % Monocytes % % Eosinophils % % Basophils % % Neutrophils # (1.3-7.7) k/uL Lymphocytes # (1.0-4.8) k/uL Monocytes # (0-1.0) k/uL Eosinophils # (0-0.7) k/uL Basophils # (0-0.2) k/uL D-Dimer (<0.60) mg/L FEU Sodium (137-145) mmol/L Potassium (3.5-5.1) mmol/L Chloride (98-107) mmol/L Carbon Dioxide (22-30) mmol/L Anion Gap mmol/L BUN (7-17) mg/dL Creatinine (0.52-1.04) mg/dL Est GFR (CKD-EPI)AfAm (>60 ml/min/1.73 sqM) Est GFR (CKD-EPI)NonAf (>60 ml/min/1.73 sqM) Glucose (74-99) mg/dL Calcium (8.4-10.2) mg/dL Troponin I <0.012 (0.000-0.034) ng/mL Urine HCG, Qual Not Detected (Not Detectd) Disposition Clinical Impression: Pleurisy Disposition: HOME SELF-CARE Condition: Good Instructions (If sedation given, give patient instructions): Chest Pain (ED) Is patient prescribed a controlled substance at d/c from ED?: No Referrals: Mike Kent DO [Primary Care Provider] - 1-2 days
--- NOTE | 2020-10-26 20:46 | XR ---
EXAMINATION TYPE: XR chest 2V DATE OF EXAM: 10/26/2020 COMPARISON: NONE HISTORY: Chest pain TECHNIQUE: Frontal and lateral views of the chest are obtained. FINDINGS: There is no focal air space opacity, pleural effusion, or pneumothorax seen. The cardiac silhouette size is borderline enlarged. The osseous structures are intact. IMPRESSION: No acute cardiopulmonary process.
[2020-10-26 20:54] LABS: Basophils # (A) 0.1 k/uL (0-0.2); Basophils % (A) 1 %; Eosinophils # (A) 0.5 k/uL (0-0.7); Eosinophils % (A) 5 %; HCT 41.6 % (34.0-46.0); HGB 14.3 gm/dL (11.4-16.0); Lymphocytes # (A) 2.9 k/uL (1.0-4.8); Lymphocytes % (A) 27 %; MCH 30.9 pg (25.0-35.0); MCHC 34.3 g/dL (31.0-37.0); MCV 90.3 fL (80.0-100.0); Mean Platelet Volume 6.8; Monocytes # (A) 0.7 k/uL (0-1.0); Monocytes % (A) 6 %; Neutrophils # (A) 6.3 k/uL (1.3-7.7); Neutrophils % (A) 58 %; Platelet Count 332 k/uL (150-450); RBC 4.61 m/uL (3.80-5.40); RDW 13.2 % (11.5-15.5); WBC 10.8 k/uL (3.8-10.6)
[2020-10-26 20:56] LABS: African American GFR (CKD) >90 (>60 ml/min/1.73 sqM); Anion Gap 6 mmol/L; Blood Urea Nitrogen 13 mg/dL (7-17); Calcium 8.7 mg/dL (8.4-10.2); Carbon Dioxide 25 mmol/L (22-30); Chloride 105 mmol/L (98-107); Glucose 95 mg/dL (74-99); Non-African American GFR(CKD) >90 (>60 ml/min/1.73 sqM); Potassium 3.6 mmol/L (3.5-5.1); Sodium 136 mmol/L (137-145)
[2020-10-26] MEDS ORDERED: diphenhydrAMINE 50 MG/ML 1 ML VIAL IVP STA (21:38)
[2020-10-26] MEDS ORDERED: methylPREDNISolone SOD SUCCI 125 MG/2 ML VIAL IV STA (21:38)
[2020-10-26] MEDS ORDERED: FAMOTIDINE 20 MG/2 ML VIAL IV STA (21:38)
--- NOTE | 2020-10-26 22:39 | CT ---
EXAMINATION TYPE: CT angio chest DATE OF EXAM: 10/26/2020 COMPARISON: None HISTORY: Left sided chest pain and elevated d-dimer. CT DLP: 749.2 mGycm Automated exposure control for dose reduction was used. CONTRAST: Performed with IV Contrast, patient injected with 100 mL of Isovue 370. There are 3-D post processed images. The lungs are clear of infiltrate. There is no pleural effusion. There is no mediastinal adenopathy. There are no hilar masses. Heart size is normal. There is no henry cardial effusion. Thoracic aorta is intact. There is no aneurysm or dissection. There is normal contrast opacification of the pulmonary arteries. There are no filling defects. The thoracic spine is intact. There is no compression fracture. Sternum is intact. The ribs appear in tact. IMPRESSION: Negative CT angiogram of the chest. No evidence of pulmonary embolism.
[2020-10-26 22:41] VITALS: BP 107/65; PULSE 85; RESP 20
== END 2020-10-26 22:49 | disposition home or self-care (01) ==
LOC: EC 19:54
DX: R09.1 Pleurisy (principal); I10 Essential (primary) hypertension; M19.90 Unspecified osteoarthritis, unspecified site; F31.9 Bipolar disorder, unspecified; F41.9 Anxiety disorder, unspecified; F20.9 Schizophrenia, unspecified; F17.200 Nicotine dependence, unspecified, uncomplicated; Z79.1 Long term (current) use of non-steroidal anti-inflammatories (NSAID); Z79.51 Long term (current) use of inhaled steroids; Z79.899 Other long term (current) drug therapy; Z88.0 Allergy status to penicillin; Z88.5 Allergy status to narcotic agent; Z88.8 Allergy status to other drugs, medicaments and biological substances; Z82.49 Family history of ischemic heart disease and other diseases of the circulatory system; Z83.49 Family history of other endocrine, nutritional and metabolic diseases
CPT/HCPCS: 36415; 93005; 85379; 80048; 84484; 85025; 81025; 71046; 71275; 99285; 96374; 96375 ×2; J1200; J2930; Q9967

== ENCOUNTER 2021-09-15 19:07 | Emergency (ER) | payer MEDICARE, OTHER ==
[2021-09-15 20:09] VITALS: TEMP 97.8
[2021-09-15 22:02] LABS: Basophils # (A) 0.1 k/uL (0-0.2); Basophils % (A) 0 %; Eosinophils # (A) 0.2 k/uL (0-0.7); Eosinophils % (A) 1 %; HCT 41.1 % (34.0-46.0); HGB 13.5 gm/dL (11.4-16.0); Lymphocytes # (A) 3.9 k/uL (1.0-4.8); Lymphocytes % (A) 26 %; MCH 30.6 pg (25.0-35.0); MCV 92.9 fL (80.0-100.0); Mean Platelet Volume 6.9; Monocytes % (A) 6 %; Neutrophils # (A) 9.8 k/uL (1.3-7.7); Neutrophils % (A) 65 %; Platelet Count 346 k/uL (150-450); RBC 4.42 m/uL (3.80-5.40); RDW 13.8 % (11.5-15.5); WBC 15.2 k/uL (3.8-10.6)
[2021-09-15 22:31] LABS: ALT 22 U/L (4-34); AST 18 U/L (14-36); African American GFR (CKD) >90 (>60 ml/min/1.73 sqM); Albumin 3.8 g/dL (3.5-5.0); Alkaline Phosphatase 98 U/L (38-126); Anion Gap 5 mmol/L; Blood Urea Nitrogen 7 mg/dL (7-17); Calcium 8.8 mg/dL (8.4-10.2); Carbon Dioxide 29 mmol/L (22-30); Chloride 105 mmol/L (98-107); Glucose 111 mg/dL (74-99); Non-African American GFR(CKD) 90 (>60 ml/min/1.73 sqM); Potassium 3.6 mmol/L (3.5-5.1); Sodium 139 mmol/L (137-145); Total Bilirubin 0.2 mg/dL (0.2-1.3); Total Protein 6.7 g/dL (6.3-8.2)
--- NOTE | 2021-09-15 22:53 | US ---
EXAMINATION TYPE: US venous doppler duplex LE DATE OF EXAM: 09/15/2021 10:41 PM COMPARISON: NONE CLINICAL HISTORY: leg swelling. bilateral ankle edema for 1 month, worse on the left SIDE PERFORMED: Bilateral TECHNIQUE: The lower extremity deep venous system is examined utilizing real time linear array sonog anastasia with graded compression, doppler sonography and color-flow sonography. VESSELS IMAGED: Common Femoral Vein Deep Femoral Vein Greater Saphenous Vein * Femoral Vein Popliteal Vein Small Saphenous Vein * Proximal Calf Veins (* superficial vessels) Right Leg: technical limitations due to patient's body habitus, morbidly obese. no evidence of DVT as visualized Left Leg: technical limitations due to patient's body habitus, morbidly obese. no evidence of DVT as visualized. unable to visualize lower femoral vein for compression IMPRESSION: No evidence of deep vein thrombosis in both legs.
[2021-09-15] MEDS ORDERED: HYDROmorphone 1 MG/ML 1 ML SYRINGE IVP STA (23:25)
[2021-09-15] MEDS ORDERED: FUROSEMIDE 10 MG/ML 4 ML VIAL IV STA (23:25)
[2021-09-15] MEDS ORDERED: cefTRIAXone IN SWFI 1,000 MG/10 ML SYRINGE IVP STA (23:26)
--- NOTE | 2021-09-15 23:34 | ED ---
Extremity Problem HPI - General Chief complaint: Extremity Problem,Nontraumatic Stated complaint: bilat feet swelling Time Seen by Provider: 09/15/21 21:20 Source: patient Mode of arrival: ambulatory Limitations: no limitations - History of Present Illness Initial comments: 41-year-old female past medical history of chronic back pain, stones the emergen cy room with lower extremity swelling. States that she has had swelling in her legs for the past month. The left leg is worse than the right. Had difficulty walking on him due to the pain. Patient does not have a history of congestive heart failure. Does not take any diuretics. No history of DVT or PE. Denies any chest pain or shortness of breath. She was evaluated by her primary care physician who sent her to an orthopedic doctor. The left leg is warm to the touch. Denies any trauma. No fevers. No other alleviating, precipitating or modifying factors - Related Data Home Medications Medication Instructions Recorded Confirmed Meloxicam [Mobic] 7.5 mg PO DAILY 01/12/18 10/26/20 Omeprazole 20 mg PO HS 01/12/18 10/26/20 Prochlorperazine [Compazine] 10 mg PO DAILY PRN 01/12/18 10/26/20 atenoloL 25 mg PO HS 01/12/18 10/26/20 Loratadine [Claritin] 10 mg PO DAILY 05/31/18 10/26/20 ARIPiprazole [Abilify] 5 mg PO HS 08/05/20 10/26/20 Gabapentin [Neurontin] 300 mg PO TID 08/05/20 10/26/20 QUEtiapine [SEROquel] 50 - 100 mg PO HS 08/05/20 10/26/20 traMADol HCL 50 - 100 mg PO TID PRN 08/05/20 10/26/20 FLUoxetine HCL 40 mg PO DAILY 10/26/20 10/26/20 Previous Rx's Medication Instructions Recorded predniSONE [Deltasone] 40 mg PO DAILY 5 Days #10 tab 08/05/21 Cephalexin [Keflex] 500 mg PO Q6HR 1 Days #28 cap 09/15/21 Furosemide [Lasix] 20 mg PO DAILY #14 tab 09/15/21 HYDROcodone/APAP 5-325MG [[place] 1 tab PO Q6HR PRN 3 Days #12 tab 09/15/21 5-325] Allergies Allergy/AdvReac Type Severity Reaction Status Date / Time asenapine [From Saphris] Allergy Unknown Verified 09/18/21 22:52 carbamazepine [From Tegretol] Allergy Unknown Verified 09/18/21 22:52 citalopram [From Celexa] Allergy Unknown Verified 09/18/21 22:52 clonazepam [From Klonopin] Allergy Unknown Verified 09/18/21 22:52 divalproex sodium Allergy Unknown Verified 09/18/21 22:52 [From Depakote] duloxetine HCl Allergy Rash/Hives Verified 09/18/21 22:52 [From Cymbalta] escitalopram [From Lexapro] Allergy Unknown Verified 09/18/21 22:52 fluvoxamine [From Luvox] Allergy Unknown Verified 09/18/21 22:52 haloperidol [From Haldol] Allergy Unknown Verified 09/18/21 22:52 Iodine and Iodide Containing Allergy Rash/Hives Verified 09/18/21 22:52 Produc ketorolac [From Toradol] Allergy Unknown Verified 09/18/21 22:52 lamotrigine [From Lamictal] Allergy Unknown Verified 09/18/21 22:52 lithium Allergy Unknown Verified 09/18/21 22:52 loxapine [From Loxitane] Allergy Unknown Verified 09/18/21 22:52 lurasidone [From Latuda] Allergy Unknown Verified 09/18/21 22:52 meperidine [From Demerol] Allergy Unknown Verified 09/18/21 22:52 morphine Allergy Unknown Verified 09/18/21 22:52 olanzapine [From Zyprexa] Allergy Unknown Verified 09/18/21 22:52 paroxetine [From Paxil] Allergy Unknown Verified 09/18/21 22:52 paroxetine HCl [From Paxil] Allergy Rash/Hives Verified 09/18/21 22:52 Penicillins Allergy Rash/Hives Verified 09/18/21 22:52 potassium Allergy Unknown Verified 09/18/21 22:52 quetiapine [From Seroquel] Allergy Unknown Verified 09/18/21 22:52 risperidone [From Risperdal] Allergy Unknown Verified 09/18/21 22:52 sertraline [From Zoloft] Allergy Unknown Verified 09/18/21 22:52 ziprasidone [From Geodon] Allergy Unknown Verified 09/18/21 22:52 CONTROL PILLS Allergy Unknown Uncoded 09/18/21 22:52 steroids Allergy Unknown Uncoded 09/18/21 22:52 Review of Systems ROS Statement: Those systems with pertinent positive or pertinent negative responses have been documented in the HPI. ROS Other: All systems not noted in ROS Statement are negative. Past Medical History Past Medical History: Hypertension, Osteoarthritis (OA) Additional Past Medical History / Comment(s): Chronic back pain, insomnia, kidney stones, MIGRAINE HEADACHE History of Any Multi-Drug Resistant Organisms: None Reported Past Surgical History: Cholecystectomy, Tubal Ligation Past Anesthesia/Blood Transfusion Reactions: No Reported Reaction Past Psychological History: Anxiety, Bipolar, Depression, Panic Disorder, Schizophrenia Smoking Status: Current every day smoker Past Alcohol Use History: None Reported Past Drug Use History: None Reported - Past Family History Brother(s) History Unknown: Yes Father Family Medical History: Hyperlipidemia Additional Family Medical History / Comment(s): CAD with triple bypass surgery Mother Family Medical History: Liver Disease Additional Family Medical History / Comment(s): Mother at age 46 from liver cirrhosis due to alcoholism General Exam Limitations: no limitations General appearance: alert, in no apparent distress Head exam: Present: atraumatic, normocephalic, normal inspection Eye exam: Present: normal appearance, PERRL, EOMI. Absent: scleral icterus, co njunctival injection, periorbital swelling ENT exam: Present: normal exam, mucous membranes moist Neck exam: Present: normal inspection. Absent: tenderness, meningismus, lymphadenopathy Respiratory exam: Present: normal lung sounds bilaterally. Absent: respiratory distress, wheezes, rales, rhonchi, stridor Cardiovascular Exam: Present: regular rate, normal rhythm, normal heart sounds. Absent: systolic murmur, diastolic murmur, rubs, gallop, clicks GI/Abdominal exam: Present: soft, normal bowel sounds. Absent: distended, tenderness, guarding, rebound, rigid Extremities exam: Present: normal inspection, full ROM, normal capillary refill, pedal edema (1+ left leg with redness and warmth). Absent: tenderness, joint swelling, calf tenderness Back exam: Present: normal inspection Neurological exam: Present: alert, oriented X3, CN II-XII intact Psychiatric exam: Present: normal affect, normal mood Skin exam: Present: warm, dry, intact, normal color. Absent: rash Course Vital Signs 09/15/21 09/15/21 20:07 23:38 Temperature 97.8 F Pulse Rate 101 H 98 Respiratory 20 24 Rate Blood Pressure 142/86 127/71 O2 Sat by Pulse 99 96 Oximetry Medical Decision Making - Medical Decision Making Upon arrival the patient was placed into room 2. A thorough history and physical exam was performed. IV access was established laboratory studies are conducted. Laboratory studies are reviewed. White count is 15.2. Patient had white count of 15 when she was seen in July. BNP is 870 which is also around the patient's previous value that was drawn in July. Ultrasound is performed of the lower extremities which demonstrates no DVT. I do have concern for cellulitis of the patient's left leg is red, warm and swollen. Patient is given a dose of Rocephin, Lasix. She is also given 1 mg of Dilaudid for pain control. Patient will be discharged home on Keflex, Lasix and [place]. She is to follow-up with her primary care doctor for reevaluation and echo. Return to the emergency room for any new or worsening symptoms. Patient agreed and was discharged home in stable condition - Lab Data Result diagrams: 09/15/21 21:45 09/15/21 21:45 Lab Results 09/15/21 09/15/21 09/15/21 Range/Units 21:45 21:45 21:45 WBC 15.2 H (3.8-10.6) k/uL RBC 4.42 (3.80-5.40) m/uL Hgb 13.5 (11.4-16.0) gm/dL Hct 41.1 (34.0-46.0) % MCV 92.9 (80.0-100.0) fL MCH 30.6 (25.0-35.0) pg MCHC 33.0 (31.0-37.0) g/dL RDW 13.8 (11.5-15.5) % Plt Count 346 (150-450) k/uL MPV 6.9 Neutrophils % 65 % Lymphocytes % 26 % Monocytes % 6 % Eosinophils % 1 % Basophils % 0 % Neutrophils # 9.8 H (1.3-7.7) k/uL Lymphocytes # 3.9 (1.0-4.8) k/uL Monocytes # 1.0 (0-1.0) k/uL Eosinophils # 0.2 (0-0.7) k/uL Basophils # 0.1 (0-0.2) k/uL Sodium 139 (137-145) mmol/L Potassium 3.6 (3.5-5.1) mmol/L Chloride 105 (98-107) mmol/L Carbon Dioxide 29 (22-30) mmol/L Anion Gap 5 mmol/L BUN 7 (7-17) mg/dL Creatinine 0.81 (0.52-1.04) mg/dL Est GFR (CKD-EPI)AfAm >90 (>60 ml/min/1.73 sqM) Est GFR (CKD-EPI)NonAf 90 (>60 ml/min/1.73 sqM) Glucose 111 H (74-99) mg/dL Calcium 8.8 (8.4-10.2) mg/dL Total Bilirubin 0.2 (0.2-1.3) mg/dL AST 18 (14-36) U/L ALT 22 (4-34) U/L Alkaline Phosphatase 98 (38-126) U/L NT-Pro-B Natriuret Pep 870 pg/mL Total Protein 6.7 (6.3-8.2) g/dL Albumin 3.8 (3.5-5.0) g/dL TSH 2.440 (0.465-4.680) mIU/L Disposition Clinical Impression: Lower extremity edema, Left leg cellulitis Disposition: HOME SELF-CARE Condition: Stable Instructions (If sedation given, give patient instructions): Cellulitis (ED), Edema (ED), Leg Pain (ED) Additional Instructions: Please take the antibiotics and water pills as directed. Follow-up with your primary care doctor. I do recommend an echo of your heart. Return for any new or worsening symptoms Prescriptions: Cephalexin [Keflex] 500 mg PO Q6HR 1 Days #28 cap Furosemide [Lasix] 20 mg PO DAILY #14 tab HYDROcodone/APAP 5-325MG [[place] 5-325] 1 tab PO Q6HR PRN 3 Days #12 tab PRN Reason: Pain Is patient prescribed a controlled substance at d/c from ED?: Yes When asked, does pt state using other controlled substances?: No If prescribed controlled substance>3 days was MAPS reviewed?: Prescribed <3 Days Referrals: Mike Kent DO [Primary Care Provider] - 1-2 days Time of Disposition: 23:34
[2021-09-15 23:40] VITALS: BP 127/71; PULSE 98; RESP 24
== END 2021-09-16 00:05 | disposition home or self-care (01) ==
LOC: EC 19:07
DX: L03.116 Cellulitis of left lower limb (principal); R60.0 Localized edema; F17.200 Nicotine dependence, unspecified, uncomplicated; I10 Essential (primary) hypertension; M19.90 Unspecified osteoarthritis, unspecified site; Z88.8 Allergy status to other drugs, medicaments and biological substances; Z88.0 Allergy status to penicillin; Z88.1 Allergy status to other antibiotic agents; Z88.6 Allergy status to analgesic agent; Z91.041 Radiographic dye allergy status; Z88.5 Allergy status to narcotic agent; Z79.899 Other long term (current) drug therapy
CPT/HCPCS: 36415; 83880; 80053; 84443; 85025; 93970; 99284; 96374; 96375; J1940; J0696; J1170

== ENCOUNTER 2021-09-18 21:22 | Emergency (ER) | payer MEDICARE, OTHER ==
[2021-09-18 22:52] VITALS: RESP 22; TEMP 97.4
[2021-09-19] MEDS ORDERED: ONDANSETRON 4 MG/2 ML VIAL IVP STA (00:22)
[2021-09-19] MEDS ORDERED: SODIUM CHLORIDE 0.9% 1,000 ML IV STA (00:22)
[2021-09-19] MEDS ORDERED: HYDROmorphone 0.5 MG/0.5 ML SYRINGE IVP STA (00:23)
--- NOTE | 2021-09-19 00:49 | ED ---
General Adult HPI - General Chief complaint: Extremity Problem,Nontraumatic Stated complaint: Bilateral Foot Pain and Swelling, Back Pain Time Seen by Provider: 09/18/21 23:46 Source: patient, RN notes reviewed Mode of arrival: wheelchair - History of Present Illness Initial comments: 41-year-old female presents to the emergency department with multiple complaints including syncopal episode yesterday, dizziness with rotational movement of the head today, and left lower extremity pain and swelling. Patient states her syncopal episode occurred during an episode of strong coughing. Reports falling out of a chair striking her head on the floor. Patient's dizziness began today and is exacerbated by looking sideways and moving her head [id number]. Also has dizziness with position change. States she is taking an antibiotic for left lower extremity cellulitis. States the swelling is worse. Endorses worsening pain, especially in the feet, with ambulation. Is taking a diuretic as prescribed as well. Denies fever, chills, headache, chest pain, shortness of breath, abdominal pain, dysuria, or hematuria. - Related Data Home Medications Medication Instructions Recorded Confirmed Meloxicam [Mobic] 7.5 mg PO DAILY 01/12/18 10/26/20 Omeprazole 20 mg PO HS 01/12/18 10/26/20 Prochlorperazine [Compazine] 10 mg PO DAILY PRN 01/12/18 10/26/20 atenoloL 25 mg PO HS 01/12/18 10/26/20 Loratadine [Claritin] 10 mg PO DAILY 05/31/18 10/26/20 ARIPiprazole [Abilify] 5 mg PO HS 08/05/20 10/26/20 Gabapentin [Neurontin] 300 mg PO TID 08/05/20 10/26/20 QUEtiapine [SEROquel] 50 - 100 mg PO HS 08/05/20 10/26/20 traMADol HCL 50 - 100 mg PO TID PRN 08/05/20 10/26/20 FLUoxetine HCL 40 mg PO DAILY 10/26/20 10/26/20 Previous Rx's Medication Instructions Recorded predniSONE [Deltasone] 40 mg PO DAILY 5 Days #10 tab 08/05/21 Cephalexin [Keflex] 500 mg PO Q6HR 1 Days #28 cap 09/15/21 Furosemide [Lasix] 20 mg PO DAILY #14 tab 09/15/21 HYDROcodone/APAP 5-325MG [[place] 1 tab PO Q6HR PRN 3 Days #12 tab 09/15/21 5-325] Allergies Allergy/AdvReac Type Severity Reaction Status Date / Time asenapine [From Saphris] Allergy Unknown Verified 09/18/21 22:52 carbamazepine [From Tegretol] Allergy Unknown Verified 09/18/21 22:52 citalopram [From Celexa] Allergy Unknown Verified 09/18/21 22:52 clonazepam [From Klonopin] Allergy Unknown Verified 09/18/21 22:52 divalproex sodium Allergy Unknown Verified 09/18/21 22:52 [From Depakote] duloxetine HCl Allergy Rash/Hives Verified 09/18/21 22:52 [From Cymbalta] escitalopram [From Lexapro] Allergy Unknown Verified 09/18/21 22:52 fluvoxamine [From Luvox] Allergy Unknown Verified 09/18/21 22:52 haloperidol [From Haldol] Allergy Unknown Verified 09/18/21 22:52 Iodine and Iodide Containing Allergy Rash/Hives Verified 09/18/21 22:52 Produc ketorolac [From Toradol] Allergy Unknown Verified 09/18/21 22:52 lamotrigine [From Lamictal] Allergy Unknown Verified 09/18/21 22:52 lithium Allergy Unknown Verified 09/18/21 22:52 loxapine [From Loxitane] Allergy Unknown Verified 09/18/21 22:52 lurasidone [From Latuda] Allergy Unknown Verified 09/18/21 22:52 meperidine [From Demerol] Allergy Unknown Verified 09/18/21 22:52 morphine Allergy Unknown Verified 09/18/21 22:52 olanzapine [From Zyprexa] Allergy Unknown Verified 09/18/21 22:52 paroxetine [From Paxil] Allergy Unknown Verified 09/18/21 22:52 paroxetine HCl [From Paxil] Allergy Rash/Hives Verified 09/18/21 22:52 Penicillins Allergy Rash/Hives Verified 09/18/21 22:52 potassium Allergy Unknown Verified 09/18/21 22:52 quetiapine [From Seroquel] Allergy Unknown Verified 09/18/21 22:52 risperidone [From Risperdal] Allergy Unknown Verified 09/18/21 22:52 sertraline [From Zoloft] Allergy Unknown Verified 09/18/21 22:52 ziprasidone [From Geodon] Allergy Unknown Verified 09/18/21 22:52 CONTROL PILLS Allergy Unknown Uncoded 09/18/21 22:52 steroids Allergy Unknown Uncoded 09/18/21 22:52 Review of Systems ROS Statement: Those systems with pertinent positive or pertinent negative responses have been documented in the HPI. ROS Other: All systems not noted in ROS Statement are negative. Past Medical History Past Medical History: Hypertension, Osteoarthritis (OA) Additional Past Medical History / Comment(s): Chronic back pain, insomnia, kidney stones, MIGRAINE HEADACHE History of Any Multi-Drug Resistant Organisms: None Reported Past Surgical History: Cholecystectomy, Tubal Ligation Past Anesthesia/Blood Transfusion Reactions: No Reported Reaction Past Psychological History: Anxiety, Bipolar, Depression, Panic Disorder, Schizophrenia Smoking Status: Current every day smoker Past Alcohol Use History: None Reported Past Drug Use History: None Reported - Past Family History Brother(s) History Unknown: Yes Father Family Medical History: Hyperlipidemia Additional Family Medical History / Comment(s): CAD with triple bypass surgery Mother Family Medical History: Liver Disease Additional Family Medical History / Comment(s): Mother at age 46 from liver cirrhosis due to alcoholism General Exam Limitations: no limitations (Developed, well-nourished female in no acute distress. Initial temperature 97.4, pulse 106, respirations 22, blood pressure 116/73, pulse ox 98% on room air.) General appearance: alert, in no apparent distress Head exam: Present: atraumatic, normocephalic, normal inspection Eye exam: Present: normal appearance, PERRL, EOMI. Absent: scleral icterus, conjunctival injection, periorbital swelling ENT exam: Present: normal exam, normal oropharynx, mucous membranes moist, TM's normal bilaterally Neck exam: Present: normal inspection, full ROM. Absent: tenderness Respiratory exam: Present: normal lung sounds bilaterally. Absent: respiratory distress, wheezes, rales, rhonchi, stridor Cardiovascular Exam: Present: regular rate, normal rhythm, normal heart sounds. Absent: systolic murmur, diastolic murmur, rubs, gallop, clicks GI/Abdominal exam: Present: soft, normal bowel sounds. Absent: distended, tenderness, guarding, rebound, rigid Extremities exam: Present: normal capillary refill, pedal edema, other (Endorses painful feet with weightbearing). Absent: calf tenderness Back exam: Present: other (Diffuse low back pain with movement, unaffected by palpation). Absent: paraspinal tenderness, vertebral tenderness Neurological exam: Present: alert, oriented X3 Expanded Patient oriented to: Present: person, place, time Speech: Present: fluid speech Cranial nerves: EOM's Intact: Normal Cerebellar function: Romberg: Normal Motor strength exam: RUE: 5, LUE: 5, RLE: 5, LLE: 5 Eye Response: (4) open spontaneously Motor Response: (6) obeys commands Verbal Response: (5) oriented Psychiatric exam: Present: normal affect, normal mood Course Vital Signs 09/18/21 09/19/21 22:47 02:25 Temperature 97.4 F L Pulse Rate 106 H 74 Respiratory 22 Rate Blood Pressure 116/73 131/94 O2 Sat by Pulse 98 Oximetry Medical Decision Making - Medical Decision Making 41-year-old female with a past medical history of hypertension, chronic back pain, and migraines presents to the emergency department for evaluation of multiple complaints. Upon exam, patient is well-appearing and in no acute distress. She is neurologically intact with no focal deficits. Complaints of back pain exacerbated by position change. She does have mild to moderate bilateral pedal edema with mild erythema. Laboratory studies were obtained and are unremarkable. Imaging is negative. EKG shows normal sinus rhythm. Patient is given IV fluids, Zofran, and Dilaudid with some improvement. She is discharged home to follow up with her PCP and continue her home medication regimen as prescribed. Return parameters were discussed in detail. Patient verbalizes understanding and agrees with this plan. Attending: Rosa. - Lab Data Result diagrams: 09/19/21 01:00 09/19/21 01:00 Lab Results 09/19/21 09/19/21 09/19/21 Range/Units 01:00 01:00 01:00 WBC 10.9 H (3.8-10.6) k/uL RBC 4.59 (3.80-5.40) m/uL Hgb 14.1 (11.4-16.0) gm/dL Hct 42.2 (34.0-46.0) % MCV 91.9 (80.0-100.0) fL MCH 30.8 (25.0-35.0) pg MCHC 33.5 (31.0-37.0) g/dL RDW 13.5 (11.5-15.5) % Plt Count 312 (150-450) k/uL MPV 7.3 Neutrophils % 63 % Lymphocytes % 25 % Monocytes % 7 % Eosinophils % 3 % Basophils % 1 % Neutrophils # 6.8 (1.3-7.7) k/uL Lymphocytes # 2.7 (1.0-4.8) k/uL Monocytes # 0.8 (0-1.0) k/uL Eosinophils # 0.3 (0-0.7) k/uL Basophils # 0.2 (0-0.2) k/uL Sodium 137 (137-145) mmol/L Potassium 3.8 (3.5-5.1) mmol/L Chloride 101 (98-107) mmol/L Carbon Dioxide 31 H (22-30) mmol/L Anion Gap 5 mmol/L BUN 13 (7-17) mg/dL Creatinine 0.82 (0.52-1.04) mg/dL Est GFR (CKD-EPI)AfAm >90 (>60 ml/min/1.73 sqM) Est GFR (CKD-EPI)NonAf 88 (>60 ml/min/1.73 sqM) Glucose 98 (74-99) mg/dL Calcium 8.7 (8.4-10.2) mg/dL Total Bilirubin 0.4 (0.2-1.3) mg/dL AST 30 (14-36) U/L ALT 23 (4-34) U/L Alkaline Phosphatase 101 (38-126) U/L Troponin I 0.018 (0.000-0.034) ng/mL NT-Pro-B Natriuret Pep pg/mL Total Protein 7.1 (6.3-8.2) g/dL Albumin 3.9 (3.5-5.0) g/dL 09/19/21 Range/Units 01:00 WBC (3.8-10.6) k/uL RBC (3.80-5.40) m/uL Hgb (11.4-16.0) gm/dL Hct (34.0-46.0) % MCV (80.0-100.0) fL MCH (25.0-35.0) pg MCHC (31.0-37.0) g/dL RDW (11.5-15.5) % Plt Count (150-450) k/uL MPV Neutrophils % % Lymphocytes % % Monocytes % % Eosinophils % % Basophils % % Neutrophils # (1.3-7.7) k/uL Lymphocytes # (1.0-4.8) k/uL Monocytes # (0-1.0) k/uL Eosinophils # (0-0.7) k/uL Basophils # (0-0.2) k/uL Sodium (137-145) mmol/L Potassium (3.5-5.1) mmol/L Chloride (98-107) mmol/L Carbon Dioxide (22-30) mmol/L Anion Gap mmol/L BUN (7-17) mg/dL Creatinine (0.52-1.04) mg/dL Est GFR (CKD-EPI)AfAm (>60 ml/min/1.73 sqM) Est GFR (CKD-EPI)NonAf (>60 ml/min/1.73 sqM) Glucose (74-99) mg/dL Calcium (8.4-10.2) mg/dL Total Bilirubin (0.2-1.3) mg/dL AST (14-36) U/L ALT (4-34) U/L Alkaline Phosphatase (38-126) U/L Troponin I (0.000-0.034) ng/mL NT-Pro-B Natriuret Pep 291 pg/mL Total Protein (6.3-8.2) g/dL Albumin (3.5-5.0) g/dL - EKG Data EKG shows normal: sinus rhythm Rate: normal EKG Comments: EKG obtained that 00:51 shows sinus rhythm with rate axis deviation and possible inferior myocardial infarction. Ventricular rate 97, SC interval 149, QRS duration 93, QT/QTC 360/4:15. Interpretation abnormal ECG. - Radiology Data Radiology results: report reviewed, image reviewed Chest x-ray was obtained. Report was reviewed in its entirety. Impression per Dr. Henry is no acute cardiopulmonary process. CT of the brain and C-spine was obtained. Report was reviewed in its entirety. Impression per Dr. Henry is no acute hemorrhage, hydrocephalus, or mass effect. No acute fracture or subluxation. Disposition Clinical Impression: Dizziness, Lower extremity edema, Lower extremity pain Disposition: HOME SELF-CARE Condition: Stable Instructions (If sedation given, give patient instructions): Leg Edema (ED), Dizziness (ED) Additional Instructions: Continue taking your home medications as prescribed. May care position changes slowly. Keep your legs elevated while at rest. Consider obtaining compression socks or wraps for your legs. Follow-up with your PCP for a recheck on Friday. Return to the emergency department with any new, worsening, or concerning symptoms. Is patient prescribed a controlled substance at d/c from ED?: No Referrals: Mike Kent DO [Primary Care Provider] - 1-2 days Time of Disposition: 02:13
[2021-09-19 01:22] LABS: ALT 23 U/L (4-34); AST 30 U/L (14-36); African American GFR (CKD) >90 (>60 ml/min/1.73 sqM); Albumin 3.9 g/dL (3.5-5.0); Alkaline Phosphatase 101 U/L (38-126); Anion Gap 5 mmol/L; Blood Urea Nitrogen 13 mg/dL (7-17); Calcium 8.7 mg/dL (8.4-10.2); Carbon Dioxide 31 mmol/L (22-30); Chloride 101 mmol/L (98-107); Glucose 98 mg/dL (74-99); Non-African American GFR(CKD) 88 (>60 ml/min/1.73 sqM); Sodium 137 mmol/L (137-145); Total Bilirubin 0.4 mg/dL (0.2-1.3); Total Protein 7.1 g/dL (6.3-8.2)
--- NOTE | 2021-09-19 01:27 | CT ---
EXAM: CT Head Without Intravenous Contrast CLINICAL HISTORY: ITS.REASON CT Reason: syncopal episode TECHNIQUE: Axial computed tomography images of the head/brain without intravenous contrast. CTDI is 45.2 mGy and DLP is 827.6 mGy-cm. This CT exam was performed using one or more of the following dose reduction techniques: automated exposure control, adjustment of the mA and/or kV according to patient size, and/or use of iterative reconstruction technique. COMPARISON: No relevant prior studies available. FINDINGS: Brain: No hemorrhage or mass effect. Ventricles: No hydrocephalus. Bones/joints: Unremarkable. Soft tissues: Unremarkable. Sinuses: No air fluid level. Mastoid air cells: Clear. IMPRESSION: No acute hemorrhage, hydrocephalus, or mass effect. EXAM: CT Cervical Spine Without Intravenous Contrast CLINICAL HISTORY: ITS.REASON CT Reason: syncopal episode TECHNIQUE: Axial computed tomography images of the cervical spine without intravenous contrast. CTDI is 27.1 mGy and DLP is 827.6 mGy-cm. This CT exam was performed using one or more of the following dose reduction techniques: automated exposure control, adjustment of the mA and/or kV according to patient size, and/or use of iterative reconstruction technique. COMPARISON: No relevant prior studies available. FINDINGS: Vertebrae: No acute fracture. Discs/spinal canal/neural foramina: Mild degenerative changes. Soft tissues: No prevertebral swelling. IMPRESSION: No acute fracture or subluxation.
[2021-09-19 01:30] LABS: Basophils # (A) 0.2 k/uL (0-0.2); Basophils % (A) 1 %; Eosinophils # (A) 0.3 k/uL (0-0.7); Eosinophils % (A) 3 %; HCT 42.2 % (34.0-46.0); HGB 14.1 gm/dL (11.4-16.0); Lymphocytes # (A) 2.7 k/uL (1.0-4.8); Lymphocytes % (A) 25 %; MCH 30.8 pg (25.0-35.0); MCHC 33.5 g/dL (31.0-37.0); MCV 91.9 fL (80.0-100.0); Mean Platelet Volume 7.3; Monocytes # (A) 0.8 k/uL (0-1.0); Monocytes % (A) 7 %; Neutrophils # (A) 6.8 k/uL (1.3-7.7); Neutrophils % (A) 63 %; Platelet Count 312 k/uL (150-450); Potassium 3.8 mmol/L (3.5-5.1); RBC 4.59 m/uL (3.80-5.40); RDW 13.5 % (11.5-15.5); WBC 10.9 k/uL (3.8-10.6)
--- NOTE | 2021-09-19 01:41 | XR ---
EXAM: XR Chest, 2 Views CLINICAL HISTORY: ITS.REASON XR Reason: cough TECHNIQUE: Frontal and lateral views of the chest. COMPARISON: No relevant prior studies available. FINDINGS: Lungs: No consolidation or mass. Pleural space: No effusion. Heart: No cardiomegaly. Bones/joints: No acute findings. IMPRESSION: No acute cardiopulmonary process.
[2021-09-19] MEDS ORDERED: HYDROcodone/APAP 10-325MG 1 EACH TAB PO ONE (02:05)
[2021-09-19 02:28] VITALS: BP 131/94; PULSE 74
== END 2021-09-19 03:12 | disposition home or self-care (01) ==
LOC: EC 21:22
DX: M79.605 Pain in left leg (principal); R42 Dizziness and giddiness; F17.200 Nicotine dependence, unspecified, uncomplicated; I10 Essential (primary) hypertension; Z88.5 Allergy status to narcotic agent; Z88.0 Allergy status to penicillin; Z88.8 Allergy status to other drugs, medicaments and biological substances; Z88.6 Allergy status to analgesic agent; Z88.3 Allergy status to other anti-infective agents
CPT/HCPCS: 36415; 93005; 83880; 80053; 84484; 85025; 71046; 72125; 70450; 99285; 96374; 96375; 96361; J2405; J1170; 99284

== ENCOUNTER 2021-09-26 10:48 | Emergency (ER) | payer MEDICARE, OTHER ==
[2021-09-26] MEDS ORDERED: HYDROmorphone 0.5 MG/0.5 ML SYRINGE IVP STA (11:47)
--- NOTE | 2021-09-26 12:40 | US ---
EXAMINATION TYPE: US venous doppler duplex UE LT DATE OF EXAM: 09/26/2021 COMPARISON: 09/15/2021 CLINICAL HISTORY: Pain and swelling. Left arm pain x 1 month SIDE PERFORMED: Left Left Arm: Negative for DVT IMPRESSION: Grayscale, color doppler, spectral doppler imaging performed of the deep veins of the upper extremiti es. There is normal flow, compressibility and vascular waveforms.
--- NOTE | 2021-09-26 12:45 | ED ---
Extremity Problem HPI - General Chief complaint: Extremity Problem,Nontraumatic Stated complaint: lt shoulder pain Time Seen by Provider: 09/26/21 11:05 Source: patient, family, RN notes reviewed Mode of arrival: ambulatory Limitations: no limitations - History of Present Illness Initial comments: This is a 41-year-old female who presents to the emergency department for left shoulder pain. Patient states that for the last month, she has had pain in the left shoulder and left upper back, radiating into the elbow. She has seen neurology for trigger point injections which have not been beneficial. She has not had any imaging or workup done on the shoulder pain. States that her symptoms continue to progress and she is now starting to experience hot flashes and nausea. Denies any chest pain or shortness of breath. Denies any fevers, chills, sore throat, cough, dyspnea, chest pain, palpitations, abdominal pain, vomiting, diarrhea, back pain, or headaches. MD Complaint: extremity pain, extremity swelling Onset/Timin -: month(s) Location: left, upper extremity History of Same: No Radiation: distal Associated Symptoms: denies other symptoms - Related Data Home Medications Medication Instructions Recorded Confirmed Meloxicam [Mobic] 7.5 mg PO DAILY 01/12/18 10/26/20 Omeprazole 20 mg PO HS 01/12/18 10/26/20 Prochlorperazine [Compazine] 10 mg PO DAILY PRN 01/12/18 10/26/20 atenoloL 25 mg PO HS 01/12/18 10/26/20 Loratadine [Claritin] 10 mg PO DAILY 05/31/18 10/26/20 ARIPiprazole [Abilify] 5 mg PO HS 08/05/20 10/26/20 Gabapentin [Neurontin] 300 mg PO TID 08/05/20 10/26/20 QUEtiapine [SEROquel] 50 - 100 mg PO HS 08/05/20 10/26/20 traMADol HCL 50 - 100 mg PO TID PRN 08/05/20 10/26/20 FLUoxetine HCL 40 mg PO DAILY 10/26/20 10/26/20 Previous Rx's Medication Instructions Recorded predniSONE [Deltasone] 40 mg PO DAILY 5 Days #10 tab 08/05/21 Cephalexin [Keflex] 500 mg PO Q6HR 1 Days #28 cap 09/15/21 Furosemide [Lasix] 20 mg PO DAILY #14 tab 09/15/21 HYDROcodone/APAP 5-325MG [[place] 1 tab PO Q6HR PRN 3 Days #12 tab 09/15/21 5-325] Celecoxib [CeleBREX] 100 mg PO BID #20 cap 09/26/21 HYDROcodone/APAP 5-325MG [[place] 1 tab PO Q6HR PRN 3 Days #12 tab 09/26/21 5-325] Ondansetron Odt [Zofran Odt] 4 mg PO Q8HR PRN #20 tab 09/26/21 Allergies Allergy/AdvReac Type Severity Reaction Status Date / Time asenapine [From Saphris] Allergy Unknown Verified 09/26/21 11:04 carbamazepine [From Tegretol] Allergy Unknown Verified 09/26/21 11:04 citalopram [From Celexa] Allergy Unknown Verified 09/26/21 11:04 clonazepam [From Klonopin] Allergy Unknown Verified 09/26/21 11:04 divalproex sodium Allergy Unknown Verified 09/26/21 11:04 [From Depakote] duloxetine HCl Allergy Rash/Hives Verified 09/26/21 11:04 [From Cymbalta] escitalopram [From Lexapro] Allergy Unknown Verified 09/26/21 11:04 fluvoxamine [From Luvox] Allergy Unknown Verified 09/26/21 11:04 haloperidol [From Haldol] Allergy Unknown Verified 09/26/21 11:04 Iodine and Iodide Containing Allergy Rash/Hives Verified 09/26/21 11:04 Produc ketorolac [From Toradol] Allergy Unknown Verified 09/26/21 11:04 lamotrigine [From Lamictal] Allergy Unknown Verified 09/26/21 11:04 lithium Allergy Unknown Verified 09/26/21 11:04 loxapine [From Loxitane] Allergy Unknown Verified 09/26/21 11:04 lurasidone [From Latuda] Allergy Unknown Verified 09/26/21 11:04 meperidine [From Demerol] Allergy Unknown Verified 09/26/21 11:04 morphine Allergy Unknown Verified 09/26/21 11:04 olanzapine [From Zyprexa] Allergy Unknown Verified 09/26/21 11:04 paroxetine [From Paxil] Allergy Unknown Verified 09/26/21 11:04 paroxetine HCl [From Paxil] Allergy Rash/Hives Verified 09/26/21 11:04 Penicillins Allergy Rash/Hives Verified 09/26/21 11:04 potassium Allergy Unknown Verified 09/26/21 11:04 quetiapine [From Seroquel] Allergy Unknown Verified 09/26/21 11:04 risperidone [From Risperdal] Allergy Unknown Verified 09/26/21 11:04 sertraline [From Zoloft] Allergy Unknown Verified 09/26/21 11:04 ziprasidone [From Geodon] Allergy Unknown Verified 09/26/21 11:04 CONTROL PILLS Allergy Unknown Uncoded 09/26/21 11:04 steroids Allergy Unknown Uncoded 09/26/21 11:04 Review of Systems ROS Statement: Those systems with pertinent positive or pertinent negative responses have been documented in the HPI. ROS Other: All systems not noted in ROS Statement are negative. Past Medical History Past Medical History: Hypertension, Osteoarthritis (OA) Additional Past Medical History / Comment(s): Chronic back pain, insomnia, kidney stones, MIGRAINE HEADACHE History of Any Multi-Drug Resistant Organisms: None Reported Past Surgical History: Cholecystectomy, Tubal Ligation Past Anesthesia/Blood Transfusion Reactions: No Reported Reaction Past Psychological History: Anxiety, Bipolar, Depression, Panic Disorder, Schizophrenia Smoking Status: Current every day smoker Past Alcohol Use History: None Reported Past Drug Use History: None Reported - Past Family History Brother(s) History Unknown: Yes Father Family Medical History: Hyperlipidemia Additional Family Medical History / Comment(s): CAD with triple bypass surgery Mother Family Medical History: Liver Disease Additional Family Medical History / Comment(s): Mother at age 46 from liver cirrhosis due to alcoholism General Exam Limitations: no limitations General appearance: alert, in distress Head exam: Present: atraumatic, normocephalic, normal inspection Respiratory exam: Present: normal lung sounds bilaterally. Absent: respiratory distress, wheezes, rales, rhonchi, stridor Cardiovascular Exam: Present: regular rate, normal rhythm, normal heart sounds. Absent: systolic murmur, diastolic murmur, rubs, gallop, clicks Extremities exam: Present: other (Mild swelling and erythema from the left shoulder spreading distally to the elbow. Significant tenderness to light palpation. No tenderness to the forearm, hand, or wrist. Significantly limited range of motion secondary to pain.) Neurological exam: Present: alert, oriented X3, CN II-XII intact Psychiatric exam: Present: normal affect, normal mood Skin exam: Present: warm, dry, intact Course Vital Signs 09/26/21 09/26/21 09/26/21 10:59 13:00 15:21 Temperature 98.3 F 98.0 F 97.7 F Pulse Rate 113 H 113 H 111 H Respiratory 18 20 20 Rate Blood Pressure 127/87 128/94 135/86 O2 Sat by Pulse 98 96 96 Oximetry Medical Decision Making - Medical Decision Making This is a 41-year-old female who presents to the emergency department for left shoulder pain. Given the increase in swelling and exquisite tenderness an ultrasound was obtained. This did not identify any signs of a deep venous thrombosis. Symptoms are not consistent with a fracture and the patient has no known injury. Dr. Ross evaluated the patient alongside myself and he believes that this is likely a cervical nerve root impingement. Advised that she needs to follow up with neurology and she will likely need an MRI of the n rubio. Short term prescription for Molina provided. She is unable to take Ibuprofen due to stomach upset. Rx for Celebrex provided. Advised that this is an antiinflammatory that has been shown to cause less stomach upset. However, if she takes this and finds that it does upset her stomach, advised her to discontinue taking it. Return precautions reviewed in depth, the patient is instructed to return to the emergency department with any new, worsening, or concerning symptoms. Patient verbalized understanding. This case was discussed in detail with the attending ED physician. Presentation, findings, and treatment plan discussed in detail as well. - Lab Data Result diagrams: 09/26/21 11:55 09/26/21 11:55 Lab Results 09/26/21 09/26/21 Range/Units 11:55 11:55 WBC 11.0 H (3.8-10.6) k/uL RBC 4.75 (3.80-5.40) m/uL Hgb 14.1 (11.4-16.0) gm/dL Hct 43.4 (34.0-46.0) % MCV 91.4 (80.0-100.0) fL MCH 29.6 (25.0-35.0) pg MCHC 32.4 (31.0-37.0) g/dL RDW 13.8 (11.5-15.5) % Plt Count 319 (150-450) k/uL MPV 7.1 Neutrophils % 72 % Lymphocytes % 17 % Monocytes % 6 % Eosinophils % 2 % Basophils % 1 % Neutrophils # 8.0 H (1.3-7.7) k/uL Lymphocytes # 1.9 (1.0-4.8) k/uL Monocytes # 0.7 (0-1.0) k/uL Eosinophils # 0.2 (0-0.7) k/uL Basophils # 0.1 (0-0.2) k/uL ESR 36 H (0-20) mm/hr Sodium 136 L (137-145) mmol/L Potassium 3.7 (3.5-5.1) mmol/L Chloride 104 (98-107) mmol/L Carbon Dioxide 24 (22-30) mmol/L Anion Gap 8 mmol/L BUN 7 (7-17) mg/dL Creatinine 0.65 (0.52-1.04) mg/dL Est GFR (CKD-EPI)AfAm >90 (>60 ml/min/1.73 sqM) Est GFR (CKD-EPI)NonAf >90 (>60 ml/min/1.73 sqM) Glucose 128 H (74-99) mg/dL Uric Acid 6.9 (3.7-7.4) mg/dL Calcium 8.7 (8.4-10.2) mg/dL Total Bilirubin 0.5 (0.2-1.3) mg/dL AST 29 (14-36) U/L ALT 18 (4-34) U/L Alkaline Phosphatase 73 (38-126) U/L C-Reactive Protein 0.9 (<1.0) mg/dL Total Protein 6.8 (6.3-8.2) g/dL Albumin 3.8 (3.5-5.0) g/dL - Radiology Data Radiology results: report reviewed, image reviewed Disposition Clinical Impression: Cervical nerve root impingement Disposition: HOME SELF-CARE Instructions (If sedation given, give patient instructions): Cervical Radiculopathy (ED) Additional Instructions: Return to the emergency department with any new, worsening, or concerning symptoms. Try taking the Celebrex with Tylenol. Celebrex is much less likely t o upset your stomach than ibuprofen. You may take Pepcid or Protonix with this to further mitigate any stomach upset. However, if you find that this still upsets your stomach, stop taking it. Take the Molina sparingly when your pain is the most severe. You will likely need additional imaging, such as an MRI, of your neck for further evaluation. Follow up with your primary care provider in 1-2 days. Prescriptions: Celecoxib [CeleBREX] 100 mg PO BID #20 cap HYDROcodone/APAP 5-325MG [[place] 5-325] 1 tab PO Q6HR PRN 3 Days #12 tab PRN Reason: Pain Ondansetron Odt [Zofran Odt] 4 mg PO Q8HR PRN #20 tab PRN Reason: Nausea And Vomiting Is patient prescribed a controlled substance at d/c from ED?: Yes If prescribed controlled substance>3 days was MAPS reviewed?: Prescribed <3 Days Referrals: Mike Kent DO [Primary Care Provider] - 1-2 days
[2021-09-26 12:46] LABS: Basophils # (A) 0.1 k/uL (0-0.2); Basophils % (A) 1 %; Eosinophils # (A) 0.2 k/uL (0-0.7); Eosinophils % (A) 2 %; HCT 43.4 % (34.0-46.0); HGB 14.1 gm/dL (11.4-16.0); Lymphocytes # (A) 1.9 k/uL (1.0-4.8); Lymphocytes % (A) 17 %; MCH 29.6 pg (25.0-35.0); MCHC 32.4 g/dL (31.0-37.0); MCV 91.4 fL (80.0-100.0); Mean Platelet Volume 7.1; Monocytes # (A) 0.7 k/uL (0-1.0); Monocytes % (A) 6 %; Neutrophils % (A) 72 %; Platelet Count 319 k/uL (150-450); RBC 4.75 m/uL (3.80-5.40); RDW 13.8 % (11.5-15.5)
[2021-09-26 13:06] LABS: ALT 18 U/L (4-34); AST 29 U/L (14-36); African American GFR (CKD) >90 (>60 ml/min/1.73 sqM); Albumin 3.8 g/dL (3.5-5.0); Alkaline Phosphatase 73 U/L (38-126); Anion Gap 8 mmol/L; Blood Urea Nitrogen 7 mg/dL (7-17); C Reactive Protein 0.9 mg/dL (<1.0); Calcium 8.7 mg/dL (8.4-10.2); Carbon Dioxide 24 mmol/L (22-30); Chloride 104 mmol/L (98-107); Glucose 128 mg/dL (74-99); Non-African American GFR(CKD) >90 (>60 ml/min/1.73 sqM); Sodium 136 mmol/L (137-145); Total Bilirubin 0.5 mg/dL (0.2-1.3); Total Protein 6.8 g/dL (6.3-8.2); Uric Acid 6.9 mg/dL (3.7-7.4)
[2021-09-26 13:15] LABS: Potassium 3.7 mmol/L (3.5-5.1)
[2021-09-26 13:53] VITALS: RESP 20
[2021-09-26 13:53] LABS: Erythrocyte Sedimentation Rate 36 mm/hr (0-20)
[2021-09-26] MEDS ORDERED: ONDANSETRON 4 MG/2 ML VIAL IVP STA (15:01)
[2021-09-26] MEDS ORDERED: HYDROcodone/APAP 5-325MG 1 EACH TAB PO STA (15:03)
[2021-09-26 15:23] VITALS: BP 135/86; PULSE 111; TEMP 97.7
== END 2021-09-26 15:21 | disposition home or self-care (01) ==
LOC: EC 10:48
DX: M25.80 Other specified joint disorders, unspecified joint (principal); I10 Essential (primary) hypertension; F17.200 Nicotine dependence, unspecified, uncomplicated; Z88.5 Allergy status to narcotic agent; Z88.0 Allergy status to penicillin; Z88.8 Allergy status to other drugs, medicaments and biological substances; Z91.048 Other nonmedicinal substance allergy status
CPT/HCPCS: 36415; 80053; 85652; 84550; 85025; 86140; 93971; 99284; 96374; 96375; J2405; J1170

== ENCOUNTER → 2021-10-30 | Outpatient (CLI) | payer MEDICARE, OTHER ==
[2021-10-30 18:17] LABS: HCT 37.6 % (37.2-46.3); HGB 12.2 g/dL (12.0-15.0); MCH 29.5 pg (27.0-32.0); MCHC 32.4 g/dL (32.0-37.0); MCV 90.8 fL (80.0-97.0); Mean Platelet Volume 9.8 fL (9.5-12.2); NRBC Per 100 WBC 0 /100 WBCS (0.0-0.0); Platelet Count 327 X 10*3/uL (140-440); RBC 4.14 X 10*6/uL (4.10-5.20); RDW 13.5 % (11.5-14.5); WBC 11.97 X 10*3/uL (4.50-10.00)
[2021-10-30 18:28] LABS: African American GFR (CKD) 99.7 (60.0-200.0); Anion Gap 11.1 mmol/L (10.00-18.00); Blood Urea Nitrogen 8.4 mg/dL (9.0-27.0); Potassium 3.6 mmol/L (3.5-5.5)
== END | disposition home or self-care (01) ==
LOC: LABPAT 12:45
PROVIDERS: ATTEND Internal Medicine Interventional Cardiology
DX: Z01.812 Encounter for preprocedural laboratory examination (principal); I50.32 Chronic diastolic (congestive) heart failure; I49.3 Ventricular premature depolarization
CPT/HCPCS: 80051; 82565; 84520; 85027